=== PATIENT | male | born 1965 | race Caucasian/White ===

== ENCOUNTER 2016-12-12 13:20 | Emergency (ER) | payer BC ==
[~2016-12-12] VITALS: Ht 180.3 cm; Wt 90.7 kg
[~2016-12-12 13:20] MED LIST: ACET-789 PO; ACLI400A IH; ACLI400A2 IH; ADVAIR IH; ALBU17AE23 INH; ALPR1T PO; ALPR1TAB2 PO; ALPR1TAB7 PO; ALPR2TAB2 PO; AMIT10TA6 PO; BUDE10.2 IH; BUDE10.22 IH; CEPH500T PO; CYPR4TAB PO; DIVA125T2 PO; DIVA250T4 PO; DIVA500T7 PO; FLUT9.9S NS; HYDR1TAB8 OP; LITH300C PO; LORA10TA7 PO; MELA1TAB15 PO; METH500T PO; MONT10TA21 PO; MULT-35 PO; MULT-963 PO; NAPR500T3 PO; OLAN5TAB23 PO; PRD20T PO; QUET200T57 PO; QUET400T PO; RT-ALBUINH IH; SERT100T PO; SERT100T8 PO; SERT50TA PO; SLMFT1E INH; TRAZ150T42 PO; TRIA10.8 NS; ZOLP10TA5 PO; zoloft
--- NOTE | 2016-12-12 13:26 | ED Upper Extremity ---
General Chief Complaint: Upper Extremity Stated Complaint: L WRIST INJURY, FALL Source: patient Exam Limitations: no limitations History of Present Illness Time seen by provider: 13:25 Initial Comments To ER with left wrist injury after slipping and falling on the ice. No pain to the elbow or shoulder. No other injury. He attempted to catch himself on an outstretched arm. Onset: just prior to arrival Severity: moderate Pain/Injury Location: left wrist Method of Injury: fell Modifying Factors: Worse With Movement Allergies and Home Medications Allergies Coded Allergies: Sulfa (Sulfonamide Antibiotics) (Unverified Allergy, Unknown, 06/09/08) Home Medications Budesonide/Formoterol Fumarate 10.2 Gm Hfa.aer.ad 2 PUFF IH BID (Reported) Divalproex Sodium 500 Mg Tablet.dr 1,000 MG PO BID (Reported) Quetiapine Fumarate 50 Mg Tablet 50 MG PO HS (Reported) Sertraline HCl 100 Mg Tablet 100 MG PO DAILY (Reported) Varenicline Tartrate 1 Each Tab.ds.pk 1 EACH PO DAILY (Reported) Constitutional: see HPI EENTM: see HPI Respiratory: no symptoms reported Cardiovascular: no symptoms reported Genitourinary: no symptoms reported Musculoskeletal: see HPI Skin: no symptoms reported Psychiatric/Neurological: No Symptoms Reported Past Yrdtbvb-Daowze-Cainpw Hx Patient Social History Former Smoker/When Quit: Jun 30, 2014 Recent Foreign Travel: No Contact w/Someone Who Travel: No Immunizations Up To Date Tetanus Booster (TDap): More than 5yrs Date of Pneumonia Vaccine: Sep 22, 2014 Date of Influenza Vaccine: Sep 30, 2015 Seasonal Allergies Seasonal Allergies: Yes Surgeries HX Surgeries: Yes (TONSILLECTOMY, URETHRAL SURGERY , FINGER) Surgeries: Orthopedic, Tonsillectomy Respiratory Hx Respiratory Disorders: Yes Respiratory Disorders: Asthma, COPD, Emphysema Cardiovascular Hx Cardiac Disorders: Yes (EPISODES OF BRADYCARDIA) Neurological Hx Neurological Disorders: No Reproductive System Hx Reproductive Disorders: No HIV/AIDS: No Genitourinary Hx Genitourinary Disorders: Yes (URETHRA DILATATION) Gastrointestinal Hx Gastrointestinal Disorders: Yes (HEP C) Gastrointestinal Disorders: Hepatitis Musculoskeletal Hx Musculoskeletal Disorders: Yes (BROKE BACK 2013) Endocrine Hx Endocrine Disorders: No HEENT HX ENT Disorders: No Loss of Vision: Denies Hearing Impairment: Denies Cancer Hx Cancer: No Psychosocial Hx Psychiatric Problems: Yes (insomnia) Behavioral Health Disorders: Anxiety, Bipolar Integumentary HX Skin/Integumentary Disorder: No Blood Transfusions Hx Blood Disorders: No Adverse Reaction to a Blood Tr: No Family Medical History Family Medial History: Diabetes mellitus 19 MOTHER FH: COPD (chronic obstructive pulmonary disease) 19 MOTHER FH: emphysema 19 FATHER FH: lung cancer 19 FATHER Physical Exam Vital Signs Vital Sign - Last 12Hours 12/12/16 13:20 Temp 98.7 Pulse 66 Resp 18 B/P 115/61 Pulse Ox 99 Capillary Refill : General Appearance: WD/WN no apparent distress HEENT: PERRL/EOMI normal ENT inspection Neck: non-tender full range of motion Respiratory: normal breath sounds no respiratory distress no accessory muscle use Shoulder: normal inspection non-tender no evidence of injury Elbow/Forearm: normal inspection, non-tender, Left Wrist: Yes limited ROM, Yes soft tissue tenderness, Yes swelling Hand: normal inspection, non-tender, no evidence of injury, Left Neurologic/Psychiatric: alert normal mood/affect oriented x 3 Skin: normal color warm/dry Progress/Results/Core Measures Results/Orders My Orders Orders-MARKO LINARES APRN Wrist, Left, 3 Views Or More (12/12/16 13:35) Vital Signs/I&O Vital Sign - Last 12Hours 12/12/16 13:20 Temp 98.7 Pulse 66 Resp 18 B/P 115/61 Pulse Ox 99 Departure Impression Impression: Primary Impression: Left wrist sprain Qualified Code: S63.502A - Unspecified sprain of left wrist, initial encounter Disposition: 01 HOME, SELF-CARE Condition: Stable Departure-Patient Inst. Decision time for Depature: 13:45 Referrals: MARIEL PATEL MD (PCP/Family) Primary Care Physician Patient Instructions: Wrist Sprain (DC) Add. Discharge Instructions: 1. Return to ER for any concerns 2. Follow up with your doctor next week for any persistent pain 3. Tylenol and Motrin for pain 4. Ice pack to the wrist for 30 minutes every 2-3 hours for the next 24 hours All discharge instructions reviewed with patient and/or family. Voiced understanding. MARKO LINARES APRN Dec 12, 2016 13:26 MARKO LINARES APRN Dec 12, 2016 13:26
[2016-12-12] MEDS ORDERED: SERT100T PO (13:36)
[2016-12-12] MEDS ORDERED: VARE1TAB21 PO (13:36)
[2016-12-12] MEDS ORDERED: QUET50TA PO (13:36)
--- NOTE | 2016-12-12 14:35 | Diagnostic Imaging Report ---
CLINICAL INDICATION: Patient fell on ice this morning. Left wrist swelling and continues to worsen as day progresses. EXAM: X-ray of the left wrist, three views. COMPARISON: X-ray of the right hand and third finger dated 05/04/2011. FINDINGS: There is no acute fracture or dislocation. There is mild to moderate degenerative disease of the first CMC joint which has slightly progressed. There is mild spurring of the first MTP joint. Scapholunate interval is within normal limits. There is a roughly 1-2 mm radiodense foreign object overlying the first MCP region, which may be outside of patient or represent a foreign body. This was not seen on the prior x-ray. IMPRESSION: 1: There is no evidence of acute fracture or dislocation. 2: There is degenerative disease of the first digit and first CMC region, which has progressed in the first CMC region. 3: Radiodense foreign object seen overlying the first MCP region which may represent a soft tissue foreign body versus outside of patient. Dictated by: Dictated on workstation # [id number]
[2016-12-12 14:49] VITALS: BP 115/61
== END 2016-12-12 14:49 | disposition home or self-care (01) ==
LOC: EDUNIT# 13:20 → ER 13:21
DX: S63.502A Unspecified sprain of left wrist, initial encounter (principal); J44.9 Chronic obstructive pulmonary disease, unspecified; M19.042 Primary osteoarthritis, left hand; W00.0XXA Fall on same level due to ice and snow, initial encounter; Y99.8 Other external cause status
CPT/HCPCS: 73110

== ENCOUNTER 2017-04-27 16:49 | Emergency (ER) | payer BC ==
[~2017-04-27] VITALS: Ht 180.3 cm; Wt 92.1 kg
[~2017-04-27 16:49] MED LIST changes: +QUET50TA PO; +VARE1TAB21 PO
[2017-04-27] MEDS ORDERED: TETANUS,DIPTH,PERTUSS P/F (BOOSTRIX) 0.5 ML VIAL IM ONE ×2 (19:15→20:32)
--- NOTE | 2017-04-27 19:17 | ED Upper Extremity ---
General Chief Complaint: Skin/Wound Problems Stated Complaint: LEFT HAND INJURY FROM SCREWDRIVER Nursing Triage Note: PT HERE WITH C/O L HAND PAIN FROM SLIPPING OFF OF A SCREW AND STABBED HIS HAND WITH A SCREWDRIVER. Nursing Sepsis Screen: No Definite Risk Source: patient History of Present Illness Time seen by provider: 19:03 Initial Comments PT STATES HE WAS TRYING TO FIX A PLUG, USING A SCREWDRIVER, AND IT SLIPPED, AND STABBED HIMSELF IN LEFT HAND OCCURRED AT HOME 2-3 HOURS AGO NO PARESTHESIAS OR MOTOR DEFICITS PT IS RIGHT HANDED NO PRIOR INJURY TO THIS HAND LAST TETANUS IS UNKNOWN Allergies and Home Medications Allergies Coded Allergies: Sulfa (Sulfonamide Antibiotics) (Unverified Allergy, Unknown, 06/09/08) Home Medications Budesonide/Formoterol Fumarate 10.2 Gm Hfa.aer.ad, 2 PUFF IH BID, (Reported) Clindamycin HCl 300 Mg Capsule, 300 MG PO QID, #40 Prescribed by: SANTIAGO MONGE on 04/27/172029 Divalproex Sodium 500 Mg Tablet.dr, 1,000 MG PO BID, (Reported) Mupirocin Calcium 15 Gm Cream..g., 15 GM TP BID, #22 Prescribed by: SANTIAGO MONGE on 04/27/172029 Quetiapine Fumarate 50 Mg Tablet, 50 MG PO HS, (Reported) Sertraline HCl 100 Mg Tablet, 100 MG PO DAILY, (Reported) Varenicline Tartrate 1 Each Tab.ds.pk, 1 EACH PO DAILY, (Reported) Constitutional: no symptoms reported Musculoskeletal: see HPI Skin: see HPI Psychiatric/Neurological: No Symptoms Reported Past Duaugaz-Qrhexy-Kuwaih Hx Patient Social History Alcohol Use: Occasionally Uses (VERY HEAVY AT TIMES) Recreational Drug Use: Yes (THC, + IV METH) Smoking Status: Current Everyday Smoker (1 PPD) Recent Foreign Travel: No Contact w/Someone Who Travel: No Recent Infectious Disease Expo: No Recent Hopitalizations: Yes Immunizations Up To Date Tetanus Booster (TDap): More than 5yrs Date of Pneumonia Vaccine: Sep 22, 2014 Date of Influenza Vaccine: Sep 30, 2015 Seasonal Allergies Seasonal Allergies: Yes Surgeries HX Surgeries: Yes (TONSILLECTOMY, URETHRAL SURGERY , FINGER) Surgeries: Orthopedic, Tonsillectomy Respiratory Hx Respiratory Disorders: Yes Respiratory Disorders: Asthma, COPD, Emphysema Cardiovascular Hx Cardiac Disorders: Yes (EPISODES OF BRADYCARDIA) Neurological Hx Neurological Disorders: No Reproductive System Hx Reproductive Disorders: No HIV/AIDS: No Genitourinary Hx Genitourinary Disorders: Yes (URETHRA DILATATION) Gastrointestinal Hx Gastrointestinal Disorders: Yes (HEP C) Gastrointestinal Disorders: Hepatitis Musculoskeletal Hx Musculoskeletal Disorders: Yes (BROKE BACK 2013--BURST FRACTURE L 1 VERTEBRA ) Endocrine Hx Endocrine Disorders: No HEENT HX ENT Disorders: No Loss of Vision: Denies Hearing Impairment: Denies Cancer Hx Cancer: No Psychosocial Hx Psychiatric Problems: Yes (insomnia) Behavioral Health Disorders: Anxiety, Bipolar Integumentary HX Skin/Integumentary Disorder: No Blood Transfusions Hx Blood Disorders: No Adverse Reaction to a Blood Tr: No Family Medical History Family Medial History: Diabetes mellitus 19 MOTHER FH: COPD (chronic obstructive pulmonary disease) 19 MOTHER FH: emphysema 19 FATHER FH: lung cancer 19 FATHER Physical Exam Vital Signs Vital Sign - Last 12Hours 04/27/17 17:55 Temp 98.1 Pulse 78 Resp 18 B/P (MAP) 121/86 Pulse Ox 89 O2 Delivery Room Air Capillary Refill : Less Than 3 Seconds General Appearance: WD/WN, no apparent distress, other (CONSTANT MOVEMENTS OF ENTIRE BODY AND MOUTH) HEENT: other (VERY POOR DENTITION) Hand: Left (LEFT PALM AT BASE OF THUMB/THENAR AREA WITH 1 CM LACERATION / PUNCTURE. NO ACTIVE BLEEDING AT THIS TIME. MODERATE SWELLING TO AREA. MOTOR/ SENSORY/VASCULAR INTACT. 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 II-XII nml as tested, no motor/sensory deficits, alert Skin: normal color, warm/dry, other (FRESH TRACK ACUNA/BRUISING TO AC SPACES, WITH ONE IN RIGHT AC APPEARING TO BE MOST RECENT) Progress/Results/Core Measures Results/Orders My Orders Orders - SANTIAGO MONGE DO Hand, Left, 3 Views (04/27/17 19:09) Dipht,Pertuss(Acell),Tet Adult (Boostrix (04/27/17 19:15) Mupirocin Ointment (Bactroban Ointment (04/27/17 21:00) Rx-Clindamycin Capsule (Rx-Cleocin Capsu (04/28/17 00:00) Rx-Clindamycin Capsule (Rx-Cleocin Capsu (04/27/17 20:32) Dipht,Pertuss(Acell),Tet Adult (Boostrix (04/27/17 20:32) Medications Given in ED Current Medications Medications Dose Ordered Sig/Hanane Route Start Time Stop Time Status Last Admin Dose Admin Clindamycin HCl 150 mg STK-MED ONCE PO 04/27/17 20:32 04/27/17 20:37 DC 04/27/17 20:42 150 MG Diphtheria/ Tetanus/Acell Pertussis 0.5 ml ONCE ONCE IM 04/27/17 19:15 04/27/17 20:51 DC 04/27/17 20:43 0.5 ML Vital Signs/I&O Vital Sign - Last 12Hours 04/27/17 04/27/17 17:55 20:49 Temp 98.1 Pulse 78 84 Resp 18 14 B/P (MAP) 121/86 Pulse Ox 89 98 O2 Delivery Room Air Blood Pressure Mean: 98 Progress Note : Progress Note NO CLOSURE DONE WOUND IS A PUNCTURE, AND HAS SMALL RETAINED FOREIGN BODY-- OBJECT IS TOO SMALL AND DEEP AND NEAR JOINT, TO ATTEMPT TO EXPLORE AND ATTEMPT TO REMOVE EXPLAINED TO PT THE RISKS OF INFECTION AND NEED FOR CLOSE FOLLOW UP, AND HE APPEARS TO UNDERSTAND Diagnostic Imaging Comments XRAYS LEFT HAND--METALLIC FOREIGN BODY NEAR MCP JOINT OF FIRST DIGIT, PER RADIOLOGIST REPORT Reviewed: Reviewed by Me Departure Impression Impression: Primary Impression: PUNCTURE WOUND LEFT HAND WITH RETAINED FOREIGN BODY Additional Impression: Rpskcqblxq-bpefnlorm-aazqdez (DPT) vaccination administered at current visit Disposition: 01 HOME, SELF-CARE Condition: Stable Departure-Patient Inst. Referrals: MARIEL PATEL MD (PCP/Family) Primary Care Physician Patient Instructions: Diphtheria and Tetanus Toxoids, and Acellular Pertussis Vaccine, Wound Care (DC) Add. Discharge Instructions: ICE TO AREA AT 20 MINUTE INTERVALS ELEVATE HAND MUCH POSSIBLE SOAK WOUND IN WARM SOAPY WATER 2-3 TIMES A DAY, AND APPLY ANTIBIOTIC OINTMENT AND FRESH DRESSING AFTER EACH TYLENOL AND MOTRIN NEEDED FOR PAIN FOLLOW UP WITH DR. PATEL IN 2 DAYS FOR RECHECK All discharge instructions reviewed with patient and/or family. Voiced understanding. Scripts Clindamycin HCl (Clindamycin HCl) 300 Mg Capsule 300 MG PO QID for FOR INFECTION, #40 CAP Prov: SANTIAGO MONGE DO 5/29/17 Mupirocin Calcium (Bactroban) 15 Gm Cream..g. 15 GM TP BID, #22 TUBE Prov: SANTIAGO MONGE DO 04/27/17 SANTIAGO MONGE DO April 27, 2017 19:17
--- NOTE | 2017-04-27 19:33 | Diagnostic Imaging Report ---
Indication: Stabbed the palm of his hand with a screwdriver at the first metacarpophalangeal joint. Comparison study: Left wrist from December 12. Findings: Three views of the left hand demonstrate a small metallic foreign body on the inside aspect of the first metacarpophalangeal joint. No fracture is present. IMPRESSION: There is a small metallic foreign body near the first metacarpophalangeal joint. Dictated by: Dictated on workstation # [id number]
[2017-04-27] MEDS ORDERED: MUPI15CR TP (20:30)
[2017-04-27] MEDS ORDERED: CLIN300C11 PO (20:30)
[2017-04-27] MEDS ORDERED: RX-CLINDAMYCIN 150 MG (CLEOCIN) CAP PPK#4 PO ONE (20:32)
[2017-04-27 20:49] VITALS: BP 135/109
[2017-04-27] MEDS ORDERED: MUPIROCIN 2% OINT 22 GM (BACTROBAN) TUBE TOP SCH (21:00)
[2017-04-28] MEDS ORDERED: RX-CLINDAMYCIN 150 MG (CLEOCIN) CAP PPK#4 PO SCH
== END 2017-04-27 20:50 | disposition home or self-care (01) ==
LOC: EDUNIT# 16:49 → ER 16:51
DX: S61.442A Puncture wound with foreign body of left hand, initial encounter (principal); Z23 Encounter for immunization; J44.9 Chronic obstructive pulmonary disease, unspecified; F17.210 Nicotine dependence, cigarettes, uncomplicated; W27.0XXA Contact with workbench tool, initial encounter; Y99.8 Other external cause status
CPT/HCPCS: 73130; 90715; 99283

== ENCOUNTER → 2018-01-14 | Outpatient (CLI) | payer BC ==
[~2018-01-14] MED LIST changes: +CEFU250T80 PO; +CLIN300C11 PO; +MUPI15CR TP; -NAPR500T3 PO; +NAPR500T4 PO; +SERT20OR PO
--- NOTE | 2018-01-14 11:20 | Diagnostic Imaging Report ---
PROCEDURE: US abdomen complete. TECHNIQUE: Multiple real-time grayscale images were obtained over the abdomen in various projections. INDICATION: Right abdominal pain and hepatitis C. The liver is at the upper limits of normal in size at 17.7 cm. Liver contour is slightly nodular but no discrete liver mass is identified. The gallbladder is without stones or sludge. No wall thickening is identified. No intrahepatic biliary duct dilatation is seen. Extrahepatic bile duct and the pancreas are obscured by bowel gas. Spleen is upper limits of normal in size at 13.9 cm. The aorta is obscured. IVC is unremarkable. Both right and left kidneys are unremarkable. No calculi or hydronephrosis is seen. There is no ascites. IMPRESSION: 1. Mild nodular contour to the liver but no discrete liver mass is identified. The liver and spleen are upper limits of normal in size. The remainder of the study is unremarkable. Dictated by: Dictated on workstation # [id number]
== END ==
LOC: RAD 10:41
PROVIDERS: ATTEND Nurse Practitioner Family
DX: B19.20 Unspecified viral hepatitis C without hepatic coma (principal)
CPT/HCPCS: 76700

== ENCOUNTER 2018-01-15 14:28 | Emergency (ER) | payer BC ==
[~2018-01-15] VITALS: Ht 177.8 cm; Wt 95.3 kg
[~2018-01-15 14:28] MED LIST changes: -CEFU250T80 PO
--- NOTE | 2018-01-15 15:10 | ED Abdominal Pain ---
General Chief Complaint: Abdominal/GI Problems Stated Complaint: RT SIDE PAIN Nursing Triage Note: c/o right sided abd pain. Onset Thursday. Seen at [facility] on Thu followed by a ray SANZ on . Hx of Hep C. Sepsis Screen: No Definite Risk Source of Information: Patient Exam Limitations: No Limitations History of Present Illness Date Seen by Provider: Jan 15, 2018 Time Seen by Provider: 15:09 Initial Comments To ER with reports of right-sided abdominal pain. This began 01/11. Denies any known cause. No nausea or vomiting. He's not had a bowel movement in 2 days. No fevers or chills. No dysuria. History of hepatitis C. Timing/Duration: 1-2 Days Severity/Quality: Moderate Location: RUQ, RLQ Radiation: No Radiation Activities at Onset: None Allergies and Home Medications Allergies Coded Allergies: Sulfa (Sulfonamide Antibiotics) (Unverified Allergy, Unknown, 06/09/08) Home Medications Budesonide/Formoterol Fumarate 10.2 Gm Hfa.aer.ad, 2 PUFF IH BID, (Reported) Clindamycin HCl 300 Mg Capsule, 300 MG PO QID, #40 Prescribed by: SANTIAGO MONGE on 04/27/172029 Divalproex Sodium 500 Mg Tablet.dr, 1,000 MG PO BID, (Reported) Mupirocin Calcium 15 Gm Cream..g., 15 GM TP BID, #22 Prescribed by: SANTIAGO MONGE on 04/27/172029 Quetiapine Fumarate 50 Mg Tablet, 50 MG PO HS, (Reported) Sertraline HCl 100 Mg Tablet, 100 MG PO DAILY, (Reported) Varenicline Tartrate 1 Each Tab.ds.pk, 1 EACH PO DAILY, (Reported) Review of Systems Constitutional: see HPI EENTM: No Symptoms Reported Respiratory: No Symptoms Reported Cardiovascular: No Symptoms Reported Gastrointestinal: See HPI, Abdominal Pain, Constipated, Denies Nausea Genitourinary: No Symptoms Reported Skin: no symptoms reported Psychiatric/Neurological: No Symptoms Reported Endocrine: No Symptoms Reported Past Omqykjj-Pbvnyz-Ohaald Hx Patient Social History Alcohol Beverage of Choice: Beer Recent Foreign Travel: No Contact w/Someone Who Travel: No Recent Infectious Disease Expo: No Recent Hopitalizations: Yes Immunizations Up To Date Tetanus Booster (TDap): More than 5yrs Date of Pneumonia Vaccine: Sep 22, 2014 Date of Influenza Vaccine: Sep 30, 2015 Seasonal Allergies Seasonal Allergies: Yes Surgeries History of Surgeries: Yes (TONSILLECTOMY, URETHRAL SURGERY , FINGER) Surgeries: Orthopedic, Tonsillectomy Respiratory History of Respiratory Disorde: Yes Respiratory Disorders: Asthma, COPD, Emphysema Currently Using CPAP: No Currently Using BIPAP: No Cardiovascular History of Cardiac Disorders: Yes (EPISODES OF BRADYCARDIA) Neurological History of Neurological Disord: No Reproductive System Hx Reproductive Disorders: No HIV/AIDS: No Gastrointestinal History of Gastrointestinal Di: Yes (HEP C) Gastrointestinal Disorders: Hepatitis Musculoskeletal History of Musculoskeletal Dis: Yes (BROKE BACK 2013) Endocrine History of Endocrine Disorders: No HEENT Loss of Vision: Denies Hearing Impairment: Denies Cancer History of Cancer: No Psychosocial History of Psychiatric Problem: Yes (insomnia) Behavioral Health Disorders: Anxiety, Bipolar Integumentary History of Skin or Integumenta: No Blood Transfusions History of Blood Disorders: No Adverse Reaction to a Blood Tr: No Family Medical History Family Medial History: Diabetes mellitus 19 MOTHER FH: COPD (chronic obstructive pulmonary disease) 19 MOTHER FH: emphysema 19 FATHER FH: lung cancer 19 FATHER Physical Exam Vital Signs VS - Last 72 Hours, by Label 01/15/18 01/15/18 14:54 15:42 Temp 97.5 97.5 Pulse 84 Resp 20 B/P (MAP) 109/85 (93) O2 Delivery Room Air Capillary Refill : Less Than 3 Seconds General Appearance: WD/WN, no apparent distress HEENT: PERRL/EOMI, normal ENT inspection Neck: non-tender, full range of motion Respiratory: normal breath sounds, no respiratory distress, no accessory muscle use Cardiovascular: regular rate, rhythm, no murmur Gastrointestinal: normal bowel sounds, soft, tenderness Extremities: normal range of motion, non-tender Neurologic/Psychiatric: alert, normal mood/affect, oriented x 3 Skin: normal color, warm/dry Progress/Results/Core Measures Results/Orders Lab Results Laboratory Tests Test 01/15/18 15:30 01/15/18 15:35 Range/Units Urine Color YELLOW Urine Clarity CLEAR Urine pH 5 5-9 Urine Specific [place] 1.020 1.016-1.022 Urine Protein 1+ H NEGATIVE Urine Glucose (UA) NEGATIVE NEGATIVE Urine Ketones 1+ H NEGATIVE Urine Nitrite NEGATIVE NEGATIVE Urine Bilirubin NEGATIVE NEGATIVE Urine Urobilinogen 1 NORMAL MG/DL Urine Leukocyte Esterase 2+ H NEGATIVE Urine RBC (Auto) 2+ H NEGATIVE Urine RBC RARE /HPF Urine WBC 10-25 H /HPF Urine Squamous Epithelial Cells 5-10 /HPF Urine Crystals NONE /LPF Urine Bacteria TRACE /HPF Urine Casts NONE /LPF Urine Mucus SMALL H /LPF Urine Culture Indicated YES White Blood Count 5.3 4.3-11.0 10^3/uL Red Blood Count 4.77 4.35-5.85 10^6/uL Hemoglobin 14.9 13.3-17.7 G/DL Hematocrit 43 40-54 % Mean Corpuscular Volume 89 80-99 FL Mean Corpuscular Hemoglobin 31 25-34 PG Mean Corpuscular Hemoglobin Concent 35 32-36 G/DL Red Cell Distribution Width 13.2 10.0-14.5 % Platelet Count 109 L 130-400 10^3/uL Mean Platelet Volume 10.5 H 7.4-10.4 FL Neutrophils (%) (Auto) 37 L 42-75 % Lymphocytes (%) (Auto) 48 H 12-44 % Monocytes (%) (Auto) 11 0-12 % Eosinophils (%) (Auto) 3 0-10 % Basophils (%) (Auto) 1 0-10 % Neutrophils # (Auto) 2.0 1.8-7.8 X 10^3 Lymphocytes # (Auto) 2.6 1.0-4.0 X 10^3 Monocytes # (Auto) 0.6 0.0-1.0 X 10^3 Eosinophils # (Auto) 0.2 0.0-0.3 10^3/uL Basophils # (Auto) 0.0 0.0-0.1 10^3/uL Sodium Level 141 135-145 MMOL/L Potassium Level 4.5 3.6-5.0 MMOL/L Chloride Level 106 98-107 MMOL/L Carbon Dioxide Level 23 21-32 MMOL/L Anion Gap 12 5-14 MMOL/L Blood Urea Nitrogen 15 7-18 MG/DL Creatinine 0.83 0.60-1.30 MG/DL Estimat Glomerular Filtration Rate > 60 BUN/Creatinine Ratio 18 Glucose Level 101 70-105 MG/DL Calcium Level 8.6 8.5-10.1 MG/DL Total Bilirubin 0.4 0.1-1.0 MG/DL Aspartate Amino Transf (AST/SGOT) 68 H 5-34 U/L Alanine Aminotransferase (ALT/SGPT) 80 H 0-55 U/L Alkaline Phosphatase 55 40-136 U/L Total Protein 7.0 6.4-8.2 GM/DL Albumin 3.6 3.2-4.5 GM/DL Lipase 52 8-78 U/L My Orders Orders - MARKO LINARES PUBLIC WORKS DIRECTOR Cbc With Automated Diff (01/15/18 15:07) Comprehensive Metabolic Panel (01/15/18 15:07) Ua Culture If Indicated (01/15/18 15:07) Lipase (01/15/18 15:07) Saline Lock/Iv-Start (01/15/18 15:07) Ct Abd/Pelv W (Appendicitis) (01/15/18 15:07) Ns Iv 1000 Ml (Sodium Chloride 0.9%) (01/15/18 15:15) Fentanyl Injection (Sublimaze Injection (01/15/18 15:15) Urine Culture (01/15/18 15:30) Iohexol Injection (Omnipaque 350 Mg/Ml 1 (01/15/18 16:15) Sodium Chloride Flush (Catheter Flush Sy (01/15/18 16:15) Ns (Ivpb) (Sodium Chloride 0.9%) (01/15/18 16:15) Pharmacy Communication (Pharmacy Communi (01/15/18 16:03) Ceftriaxone Injection (Rocephin Injectio (01/15/18 16:15) Ketorolac Injection (Toradol Injection) (01/15/18 16:45) Medications Given in ED Current Medications Medications Dose Ordered Sig/Hanane Route Start Time Stop Time Status Last Admin Dose Admin Fentanyl Citrate 50 mcg ONCE ONCE IVP 01/15/18 15:15 01/15/18 15:16 DC 01/15/18 15:42 50 MCG Iohexol 100 ml ONCE ONCE IV 01/15/18 16:15 01/15/18 16:16 DC 01/15/18 16:24 100 ML Sodium Chloride 10 ml NEEDED PRN IV 01/15/18 16:15 01/15/18 16:24 10 ML Sodium Chloride 250 ml ONCE ONCE IV 01/15/18 16:15 01/15/18 16:16 DC 01/15/18 16:24 80 ML Vital Signs/I&O Vital Sign - Last 12Hours 01/15/18 01/15/18 14:54 15:42 Temp 97.5 97.5 Pulse 84 Resp 20 B/P (MAP) 109/85 (93) O2 Delivery Room Air Blood Pressure Mean: 93 Diagnostic Imaging Diagonstic Imaging: CT Comments NAME: NANI PERALTA [facility] REC#: [id number] PT STATUS: REG ER : 1965 PHYSICIAN: MARKO LINARES PUBLIC WORKS DIRECTOR ADMIT DATE: 01/15/18/ER Draft Date of Exam:01/15/18 CT ABD/PELV W (APPENDICITIS) PROCEDURE: CT abdomen and pelvis with contrast, rule out appendicitis. TECHNIQUE: Multiple contiguous axial images were obtained through the abdomen and pelvis after the administration of intravenous contrast. INDICATION: Right lower quadrant pain. FINDINGS: There are no opaque kidney stones. There is no hydronephrosis. No perinephric or periureteric edema. Liver, gallbladder, bile ducts, spleen, adrenals and pancreas were unremarkable. The cecum is oriented transversely, there is no evidence for appendicitis or diverticulitis. There is no bowel, biliary or urinary tract obstruction. No abdominal wall defect, hernia or fluid collection aside from midline fatty umbilical hernia showing no acute feature. No rectus sheath collection. The osseous structures nonacute. No mesenteric or retroperitoneal lymphadenopathy. The lung bases nonacute. At L1 fracture with mild retropulsion of its posterior cortex shows severe stature loss at its middle third but appears sclerotic, old and healed. IMPRESSION: Unobstructed urinary tracts. No inflammatory process. Old retropulsed burst fracture of L1 with no acute osseous abnormality. Fatty umbilical hernia, nonacute. No acute-appearing abdominopelvic abnormalities. Dictated on workstation # [id number] Dict: 01/15/18 1627 Trans: 01/15/18 1633 ADALID [id number] Interpreted by: ZAN VOGT Electronically signed by: Departure Impression Impression: Primary Impression: Urinary tract infection Disposition: 01 HOME, SELF-CARE Condition: Stable Departure-Patient Inst. Decision time for Depature: 16:40 Referrals: MARIEL PATEL MD (PCP/Family) Primary Care Physician Patient Instructions: Urinary Tract Infection, Adult (DC) Add. Discharge Instructions: 1. Antibiotics as directed 2. Follow-up with your doctor this week or next week for recheck 3. Return to ER for any worsening. All discharge instructions reviewed with patient and/or family. Voiced understanding. Scripts Cefuroxime Axetil (Cefuroxime) 250 Mg Tablet 250 MG PO BID, #14 TAB Prov: MARKO LINARES APRN 01/15/18 MARKO LINARES APRN Jan 15, 2018 15:10
[2018-01-15] MEDS ORDERED: NS IV 1000 ML 1,000 ML IV SCH (15:15)
[2018-01-15] MEDS ORDERED: fentaNYL INJECTION 100 MCG/2 ML AMP IVP ONE (15:15)
[2018-01-15 15:43] LABS: BILIRUBIN,URINE NEGATIVE (NEGATIVE); CLARITY,URINE CLEAR; COLOR,URINE YELLOW; GLUCOSE, URINE (UA) NEGATIVE (NEGATIVE); KETONES,URINE 1+ (NEGATIVE); LEUKOCYTE ESTERASE ,URINE 2+ (NEGATIVE); NITRITE,URINE NEGATIVE (NEGATIVE); PH,URINE 5 (5-9); PROTEIN,URINE 1+ (NEGATIVE); UROBILINOGEN,URINE 1 MG/DL (NORMAL)
[2018-01-15 15:44] LABS: BASOPHILS % (AUTO) 1 % (0-10); EOSINOPHILS # (AUTO) 0.2 10^3/uL (0.0-0.3); EOSINOPHILS % (AUTO) 3 % (0-10); HEMATOCRIT 43 % (40-54); HEMOGLOBIN 14.9 G/DL (13.3-17.7); LYMPHOCYTES # (AUTO) 2.6 X 10^3 (1.0-4.0); LYMPHOCYTES % (AUTO) 48 % (12-44); MEAN CORPUSCULAR HEMOGLOBIN 31 PG (25-34); MEAN CORPUSCULAR HGB CONC 35 G/DL (32-36); MEAN CORPUSCULAR VOLUME 89 FL (80-99); MEAN PLATELET VOLUME 10.5 FL (7.4-10.4); MONOCYTES # (AUTO) 0.6 X 10^3 (0.0-1.0); MONOCYTES % (AUTO) 11 % (0-12); NEUTROPHILS % (AUTO) 37 % (42-75); PLATELET COUNT 109 10^3/uL (130-400); RED BLOOD COUNT 4.77 10^6/uL (4.35-5.85); RED CELL DISTRIBUTION WIDTH 13.2 % (10.0-14.5); WHITE BLOOD COUNT 5.3 10^3/uL (4.3-11.0)
[2018-01-15 15:52] LABS: BACTERIA,URINE TRACE /HPF; RBC,URINE RARE /HPF
[2018-01-15 16:08] LABS: ALANINE AMINOTRANSFERASE 80 U/L (0-55); ALBUMIN 3.6 GM/DL (3.2-4.5); ALKALINE PHOSPHATASE 55 U/L (40-136); BILIRUBIN,TOTAL 0.4 MG/DL (0.1-1.0); BUN/CREATININE RATIO 18; CALCIUM 8.6 MG/DL (8.5-10.1); CARBON DIOXIDE 23 MMOL/L (21-32); CHLORIDE 106 MMOL/L (98-107); CREATININE SERUM 0.83 MG/DL (0.60-1.30); GFR ESTIMATED > 60; GLUCOSE 101 MG/DL (70-105); LIPASE 52 U/L (8-78); POTASSIUM 4.5 MMOL/L (3.6-5.0); SODIUM 141 MMOL/L (135-145)
[2018-01-15] MEDS ORDERED: IOHEXOL 350 MG/ML 100 ML (OMNIPAQUE 350) VIAL IV ONE (16:15)
[2018-01-15] MEDS ORDERED: CATHETER FLUSH 10 ML SYR IV PRN (16:15)
[2018-01-15] MEDS ORDERED: NS 250 ML (IVPB) BAG IV ONE (16:15)
[2018-01-15] MEDS ORDERED: cefTRIAXone INJECTION 1,000 MG in NS (IVPB) 50 ML IV ONE (16:15)
--- NOTE | 2018-01-15 16:34 | Diagnostic Imaging Report ---
PROCEDURE: CT abdomen and pelvis with contrast, rule out appendicitis. TECHNIQUE: Multiple contiguous axial images were obtained through the abdomen and pelvis after the administration of intravenous contrast. INDICATION: Right lower quadrant pain. FINDINGS: There are no opaque kidney stones. There is no hydronephrosis. No perinephric or periureteric edema. Liver, gallbladder, bile ducts, spleen, adrenals and pancreas were unremarkable. The cecum is oriented transversely, there is no evidence for appendicitis or diverticulitis. There is no bowel, biliary or urinary tract obstruction. No abdominal wall defect, hernia or fluid collection aside from midline fatty umbilical hernia showing no acute feature. No rectus sheath collection. The osseous structures nonacute. No mesenteric or retroperitoneal lymphadenopathy. The lung bases nonacute. At L1 fracture with mild retropulsion of its posterior cortex shows severe stature loss at its middle third but appears sclerotic, old and healed. IMPRESSION: Unobstructed urinary tracts. No inflammatory process. Old retropulsed burst fracture of L1 with no acute osseous abnormality. Fatty umbilical hernia, nonacute. No acute-appearing abdominopelvic abnormalities. Dictated by: Dictated on workstation # [id number]
[2018-01-15] MEDS ORDERED: CEFU250T80 PO (16:43)
[2018-01-15] MEDS ORDERED: KETOROLAC 30 MG/ML VIAL IVP ONE (16:45)
--- OUTSIDE RECORDS SUMMARY | 2018-01-15 17:12 | XMS REPORT ---
Author Author JUAN CARLOS MULLIGAN Organization [facility] Address [address] [place] [address] Care Team Providers Care [employer] Name Role Phone ESE JUAN CARLOS Unavailable PROBLEMS Type Condition ICD9-CM Code [id number] Code Onset Dates Condition Status SNOMED Code Problem Social phobia, generalized F40.11 Active 11454493 Problem Alcohol abuse F10.10 Active 20715660 Problem Alcohol use disorder, moderate, dependence F10.20 Active 395889059 Problem PTSD (post-traumatic stress disorder) F43.10 Active 50182589 Problem Bipolar disorder F31.9 Active 67446374 Problem Cannabis dependence with or without physiological dependence F12.20 Active 20688860 Problem Chronic hepatitis C without hepatic coma B18.2 Active 298887871 Problem Chronic obstructive pulmonary disease, unspecified COPD type J44.9 Active 02434252 Problem Cigarette nicotine dependence without complication F17.210 Active 90132919 Problem Alcohol use disorder, severe, 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 Active 18856984 Problem Gastroesophageal reflux disease, esophagitis presence not specified K21.9 Active 666499516 ALLERGIES Unknown Allergies SOCIAL HISTORY No smoking Hx information available PLAN OF CARE Activity Details Follow Up 4 Months Reason: VITAL SIGNS Height 71 in 2016-11-11 Weight 200.1 lbs 2016-11-11 Heart Rate 78 bpm 2016-11-11 Respiratory Rate 20 2016-11-11 BMI 27.91 kg/m2 2016-11-11 Blood pressure systolic 138 mmHg 2016-11-11 Blood pressure diastolic 74 mmHg 2016-11-11 MEDICATIONS Medication Instructions Dosage Frequency Start Date End Date Duration Status Seroquel 300 MG Orally at bedtime 1 tablet Active Depakote 500 MG Orally 2 times a day 2 tablet 12h 13 Jun, 2015 Active Zoloft 100 MG Orally Take 1/2 tablet for one week then increase to 1 whole tablet 1 tablet Active Seroquel 100 MG Orally Once a day at 4pm 1 tablet Oct, Active RESULTS No Results PROCEDURES Procedure Date Ordered Related Diagnosis Body Site MH Office Visit, Est Pt., Level 4 Nov 11, 2016 IMMUNIZATIONS No Known Immunizations
--- OUTSIDE RECORDS SUMMARY | 2018-01-15 17:13 | XMS REPORT ---
Author Author MARIEL PATEL [facility] Address [address] [place] [address] Care Team Providers Care Generation Manager Name Role Phone MARIEL PATEL Unavailable PROBLEMS Type Condition ICD9-CM Code [id number] Code Onset Dates Condition Status SNOMED Code Problem Social phobia, generalized F40.11 Active 56148817 Problem Alcohol use disorder, moderate, dependence F10.20 Active 978507972 Problem Alcohol abuse F10.10 Active 80867242 Problem Bipolar disorder F31.9 Active 34378792 Problem PTSD (post-traumatic stress disorder) F43.10 Active 10578900 Problem Cannabis dependence with or without physiological dependence F12.20 Active 52340512 Problem Chronic hepatitis C without hepatic coma B18.2 Active 725543401 Problem Cigarette nicotine dependence without complication F17.210 Active 55679163 Problem Chronic obstructive pulmonary disease, unspecified COPD type J44.9 Active 86391842 Problem Alcohol use disorder, severe, 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 Active 97260433 Problem Gastroesophageal reflux disease, esophagitis presence not specified K21.9 Active 570567217 ALLERGIES Substance Reaction Event Type Date Status Sulfamethoxazole-Trimethoprim Unknown Drug Allergy March, Active Latex rash Non Drug Allergy March, Active SOCIAL HISTORY Never Assessed PLAN OF CARE Activity Details Follow Up 1 Year Reason: VITAL SIGNS Height 71 in 2017-04-10 Weight 203.1 lbs 2017-04-10 Temperature 98.3 degrees Fahrenheit 2017-04-10 Heart Rate 78 bpm 2017-04-10 Respiratory Rate 18 2017-04-10 Oximetry at rest:96 % 2017-04-10 BMI 28.32 kg/m2 2017-04-10 Blood pressure systolic 104 mmHg 2017-04-10 Blood pressure diastolic 70 mmHg 2017-04-10 MEDICATIONS Medication Instructions Dosage Frequency Start Date End Date Duration Status Depakote 500 mg Orally 2 times a day 2 tablet 12h 13 Jun, 2015 Active ProAir HFA 108 (90 Base) MCG/ACT Inhalation every 4 hrs 2 puffs as needed 4h March, 30 days Active Zoloft 100 mg Orally Once a day 1 tablet 24h Active Chantix Starting Month Randy 0.5 MG X 11 & 1 MG X 42 Orally 2 times a day as directed 12h March, May, 30 days Active Seroquel 300 MG Orally at bedtime 1 tablet Active RESULTS No Results PROCEDURES Procedure Date Ordered Result Body Site MEASURE BLOOD OXYGEN LEVEL April 10, 2017 IMMUNIZATIONS No Known Immunizations MEDICAL (GENERAL) HISTORY Type Description Date Medical History bipolar Medical History Social anxiety disorder Medical History Hepatitis C - diagnosed in 2005 Surgical History Meatotomy 2007 Hospitalization History Via [facility] for slow heart rate 08/2015 Hospitalization History via [facility] for [facility] and [facility] 12/2015
--- OUTSIDE RECORDS SUMMARY | 2018-01-15 17:15 | XMS REPORT | Continuity of Care Document ---
Author Author [facility] Address Unknown Phone Unavailable Allergies Active Description Code Type Severity Reaction Onset Reported/Identified Relationship to Patient Clinical Status Yes No Known Drug Allergies [id number] Drug Allergy Unknown N/A 06/09/2008 Yes Sulfa (Sulfonamide Antibiotics) [id number] Drug Allergy Unknown N/A 2007 Yes sulfa drug Drug Allergy 11/04/2010 Medications There is no data. Problems Date Dx Coded Attending Type Code Diagnosis Diagnosed By 11/04/2010 MARIEL PATEL MD6.9 UNSPECIFIED LOCAL INFECTION OF SKIN AND SUBCUTANEOUS TISSUE 11/04/2010 686.9 UNSPECIFIED LOCAL INFECTION OF SKIN AND SUBCUTANEOUS TISSUE 11/04/2010 MARIEL PATEL MD 686.9 UNSPECIFIED LOCAL INFECTION OF SKIN AND SUBCUTANEOUS TISSUE 11/04/2010 686.9 UNSPECIFIED LOCAL INFECTION OF SKIN AND SUBCUTANEOUS TISSUE 11/04/2010 CASEY BLANDON MD 686.9 UNSPECIFIED LOCAL INFECTION OF SKIN AND SUBCUTANEOUS TISSUE 11/04/2010 686.9 UNSPECIFIED LOCAL INFECTION OF SKIN AND SUBCUTANEOUS TISSUE 11/04/2010 JUANITO BLANDON APRN 686.9 UNSPECIFIED LOCAL INFECTION OF SKIN AND SUBCUTANEOUS TISSUE 11/04/2010 686.9 UNSPECIFIED LOCAL INFECTION OF SKIN AND SUBCUTANEOUS TISSUE 11/04/2010 686.9 UNSPECIFIED LOCAL INFECTION OF SKIN AND SUBCUTANEOUS TISSUE 11/04/2010 MARIEL PATEL MD 686.9 UNSPECIFIED LOCAL INFECTION OF SKIN AND SUBCUTANEOUS TISSUE 11/04/2010 FROY FERRELL DO 686.9 UNSPECIFIED LOCAL INFECTION OF SKIN AND SUBCUTANEOUS TISSUE 11/04/2010 FERNANDO MELARA APRN 686.9 UNSPECIFIED LOCAL INFECTION OF SKIN AND SUBCUTANEOUS TISSUE 11/04/2010 MARIEL PATEL MD 686.9 UNSPECIFIED LOCAL INFECTION OF SKIN AND SUBCUTANEOUS TISSUE 11/04/2010 MARIEL PATEL MD 686.9 UNSPECIFIED LOCAL INFECTION OF SKIN AND SUBCUTANEOUS TISSUE 11/04/2010 FROY FERRELL DO 686.9 UNSPECIFIED LOCAL INFECTION OF SKIN AND SUBCUTANEOUS TISSUE 11/04/2010 WHITE DDS SEN Nolan 686.9 UNSPECIFIED LOCAL INFECTION OF SKIN AND SUBCUTANEOUS TISSUE 11/04/2010 FROY FERRELL DO 686.9 UNSPECIFIED LOCAL INFECTION OF SKIN AND SUBCUTANEOUS TISSUE 11/04/2010 MELARA MARK FERNANDO MANNIE 686.9 UNSPECIFIED LOCAL INFECTION OF SKIN AND SUBCUTANEOUS TISSUE 11/04/2010 MELARA BILLBOARD ERECTOR, FERNANDO MANNIE 686.9 UNSPECIFIED LOCAL INFECTION OF SKIN AND SUBCUTANEOUS TISSUE 11/04/2010 MARIEL PATEL MD 686.9 UNSPECIFIED LOCAL INFECTION OF SKIN AND SUBCUTANEOUS TISSUE 11/04/2010 MARIEL PATEL MD6.9 UNSPECIFIED LOCAL INFECTION OF SKIN AND SUBCUTANEOUS TISSUE 11/04/2010 MARIEL PATEL MD6.9 UNSPECIFIED LOCAL INFECTION OF SKIN AND SUBCUTANEOUS TISSUE 11/04/2010 LE RAMIREZ APRN 686.9 UNSPECIFIED LOCAL INFECTION OF SKIN AND SUBCUTANEOUS TISSUE 11/04/2010 MARIEL PATEL MD 686.9 UNSPECIFIED LOCAL INFECTION OF SKIN AND SUBCUTANEOUS TISSUE 11/04/2010 LE RAMIREZ APRN 686.9 UNSPECIFIED LOCAL INFECTION OF SKIN AND SUBCUTANEOUS TISSUE 11/04/2010 MARIEL PATEL MD6.9 UNSPECIFIED LOCAL INFECTION OF SKIN AND SUBCUTANEOUS TISSUE 11/04/2010 MARIEL PATEL MD6.9 UNSPECIFIED LOCAL INFECTION OF SKIN AND SUBCUTANEOUS TISSUE 11/04/2010 LE RAMIREZ APRN 686.9 UNSPECIFIED LOCAL INFECTION OF SKIN AND SUBCUTANEOUS TISSUE 12/30/2010 MARIEL PATEL MD 296.90 MO MOOD DIS NOS 12/30/2010 MARIEL PATEL MD 300.02 AN GEN ANXIETY 12/30/2010 296.90 MO MOOD DIS NOS 12/30/2010 300.02 AN GEN ANXIETY 12/30/2010 MARIEL PATEL MD 296.90 MO MOOD DIS NOS 12/30/2010 MARIEL PATEL MD 300.02 AN GEN ANXIETY 12/30/2010 296.90 MO MOOD DIS NOS 12/30/2010 300.02 AN GEN ANXIETY 12/30/2010 CASEY BLANDON MD 296.90 MO MOOD DIS NOS 12/30/2010 ACSEY BLANDON MD 300.02 AN GEN ANXIETY 12/30/2010 296.90 MO MOOD DIS NOS 12/30/2010 300.02 AN GEN ANXIETY 12/30/2010 JAMIA FLORESJUANITO M 296.90 MO MOOD DIS NOS 12/30/2010 BLANDON BILLBOARD ERECTORJUANITO M 300.02 AN GEN ANXIETY 12/30/2010 296.90 MO MOOD DIS NOS 12/30/2010 300.02 AN GEN ANXIETY 12/30/2010 296.90 MO MOOD DIS NOS 12/30/2010 300.02 AN GEN ANXIETY 12/30/2010 MARIEL PATEL MD 296.90 MO MOOD DIS NOS 12/30/2010 MARIEL PATEL MD 300.02 AN GEN ANXIETY 12/30/2010 FERRELL MÓNICA MEJIAA K 296.90 MO MOOD DIS NOS 12/30/2010 FERRELL DO FROY K 300.02 AN GEN ANXIETY 12/30/2010 MELARAFERNANDO DRAPER APRN 296.90 MO MOOD DIS NOS 12/30/2010 FERNANDO MELARA APRN 300.02 AN GEN ANXIETY 12/30/2010 MARIEL PATEL MD 296.90 MO MOOD DIS NOS 12/30/2010 MARIEL PATEL MD 300.02 AN GEN ANXIETY 12/30/2010 MARIEL PATEL MD 296.90 MO MOOD DIS NOS 12/30/2010 MARIEL PATEL MD 300.02 AN GEN ANXIETY 12/30/2010 FERRELL DO FROY K 296.90 MO MOOD DIS NOS 12/30/2010 FERRELL DO FROY K 300.02 AN GEN ANXIETY 12/30/2010 WHITE DDS, SEN D 296.90 MO MOOD DIS NOS 12/30/2010 WHITE DDS, SEN D 300.02 AN GEN ANXIETY 12/30/2010 FERRELL DO FROY K 296.90 MO MOOD DIS NOS 12/30/2010 FERRELL DO FROY K 300.02 AN GEN ANXIETY 12/30/2010 FERNANDO MELARA APRN 296.90 MO MOOD DIS NOS 12/30/2010 FERNANDO MELARA APRN 300.02 AN GEN ANXIETY 12/30/2010 FERNANDO MELARA APRN 296.90 MO MOOD DIS NOS 12/30/2010 FERNANDO MELARA APRN 300.02 AN GEN ANXIETY 12/30/2010 MARIEL PATEL MD 296.90 MO MOOD DIS NOS 12/30/2010 MARIEL PATEL MD 300.02 AN GEN ANXIETY 12/30/2010 MARIEL PATEL MD 296.90 MO MOOD DIS NOS 12/30/2010 MARIEL PATEL MD 300.02 AN GEN ANXIETY 12/30/2010 MARIEL PATEL MD 296.90 MO MOOD DIS NOS 12/30/2010 MARIEL PATEL MD 300.02 AN GEN ANXIETY 12/30/2010 JAMES BILLBOARD ERECTOR, LE 296.90 MO MOOD DIS NOS 12/30/2010 JAMES BILLBOARD ERECTOR, LE 300.02 AN GEN ANXIETY 12/30/2010 MARIEL PATEL MD 296.90 MO MOOD DIS NOS 12/30/2010 MARIEL PATEL MD 300.02 AN GEN ANXIETY 12/30/2010 JAMES BILLBOARD ERECTOR, LE 296.90 MO MOOD DIS NOS 12/30/2010 JAMES BILLBOARD ERECTOR, LE 300.02 AN GEN ANXIETY 12/30/2010 MARIEL PATEL MD 296.90 MO MOOD DIS NOS 12/30/2010 MARIEL PATEL MD 300.02 AN GEN ANXIETY 12/30/2010 MARIEL PATEL MD 296.90 MO MOOD DIS NOS 12/30/2010 MARIEL PATEL MD 300.02 AN GEN ANXIETY 12/30/2010 JAMES BILLBOARD ERECTOR, LE 296.90 MO MOOD DIS NOS 12/30/2010 JAMES BILLBOARD ERECTOR, LE 300.02 AN GEN ANXIETY 03/05/2011 MARIEL PATEL MD 300.00 AN ANXIETY UNSPEC 03/05/2011 300.00 AN ANXIETY UNSPEC 03/05/2011 MARIEL PATEL MD 300.00 AN ANXIETY UNSPEC 03/05/2011 300.00 AN ANXIETY UNSPEC 03/05/2011 CASEY BLANDON MD 300.00 AN ANXIETY UNSPEC 03/05/2011 300.00 AN ANXIETY UNSPEC 03/05/2011 JUANITO BLANDON APRN 300.00 AN ANXIETY UNSPEC 03/05/2011 300.00 AN ANXIETY UNSPEC 03/05/2011 300.00 AN ANXIETY UNSPEC 03/05/2011 MARIEL PATEL MD 300.00 AN ANXIETY UNSPEC 03/05/2011 FROY FERRELL DO 300.00 AN ANXIETY UNSPEC 03/05/2011 FERNANDO MELARA APRN 300.00 AN ANXIETY UNSPEC 03/05/2011 MARIEL PATEL MD 300.00 AN ANXIETY UNSPEC 03/05/2011 MARIEL PATEL MD 300.00 AN ANXIETY UNSPEC 03/05/2011 FROY FERRELL DO 300.00 AN ANXIETY UNSPEC 03/05/2011 BRENDON DDS, SEN Nolan 300.00 AN ANXIETY UNSPEC 03/05/2011 FROY FERRELL DO 300.00 AN ANXIETY UNSPEC 03/05/2011 FERNANDO MELARA APRN 300.00 AN ANXIETY UNSPEC 03/05/2011 FERNANDO MELARA APRN 300.00 AN ANXIETY UNSPEC 03/05/2011 MARIEL PATEL MD 300.00 AN ANXIETY UNSPEC 03/05/2011 MARIEL PATEL MD 300.00 AN ANXIETY UNSPEC 03/05/2011 MARIEL PATEL MD 300.00 AN ANXIETY UNSPEC 03/05/2011 LE RAMIREZ APRN 300.00 AN ANXIETY UNSPEC 03/05/2011 MARIEL PATEL MD 300.00 AN ANXIETY UNSPEC 03/05/2011 LE RAMIREZ APRN 300.00 AN ANXIETY UNSPEC 03/05/2011 MARIEL PATEL MD 300.00 AN ANXIETY UNSPEC 03/05/2011 MARIEL PATEL MD 300.00 AN ANXIETY UNSPEC 03/05/2011 LE RAMIREZ APRN 300.00 AN ANXIETY UNSPEC 05/09/2011 Ot 041.12 METHICILLIN RESISTANT STAPHYLOCOCCUS AUR 05/09/2011 Ot 296.80 BIPOLAR DISORDER, UNSPECIFIED 05/09/2011 Ot 305.1 TOBACCO USE DISORDER 05/09/2011 Ot 493.90 ASTHMA, UNSPECIFIED 05/09/2011 Ot 681.00 CELLULITIS, FINGER NOS 05/09/2011 Ot V12.09 PERSONAL HISTORY OTH SPEC INFECT ROLO 06/09/2011 MARIEL PATEL MD 493.90 ASTHMA UNSPECIFIED 06/09/2011 493.90 ASTHMA UNSPECIFIED 06/09/2011 MARIEL PATEL MD 493.90 ASTHMA UNSPECIFIED 06/09/2011 493.90 ASTHMA UNSPECIFIED 06/09/2011 CASEY BLANDON MD 493.90 ASTHMA UNSPECIFIED 06/09/2011 493.90 ASTHMA UNSPECIFIED 06/09/2011 JUANITO BLANDON APRN 493.90 ASTHMA UNSPECIFIED 06/09/2011 493.90 ASTHMA UNSPECIFIED 06/09/2011 493.90 ASTHMA UNSPECIFIED 06/09/2011 MARIEL PATEL MD 493.90 ASTHMA UNSPECIFIED 06/09/2011 FROY FERRELL DO 493.90 ASTHMA UNSPECIFIED 06/09/2011 FERNANDO MELARA APRN 493.90 ASTHMA UNSPECIFIED 06/09/2011 MARIEL PATEL MD 493.90 ASTHMA UNSPECIFIED 06/09/2011 MARIEL PATEL MD 493.90 ASTHMA UNSPECIFIED 06/09/2011 FERRELL FROY 493.90 ASTHMA UNSPECIFIED 06/09/2011 BRENDON DDS, SEN Nolan 493.90 ASTHMA UNSPECIFIED 06/09/2011 GHASSAN MEJIA FROY Michelle 493.90 ASTHMA UNSPECIFIED 06/09/2011 SARITHA FLORES, FERNANDO CHAND 493.90 ASTHMA UNSPECIFIED 06/09/2011 SARITHA FLORES, FERNANDO CHAND 493.90 ASTHMA UNSPECIFIED 06/09/2011 MARIEL PATEL MD 493.90 ASTHMA UNSPECIFIED 06/09/2011 MARIEL PAETL MD 493.90 ASTHMA UNSPECIFIED 06/09/2011 MARIEL PATEL MD 493.90 ASTHMA UNSPECIFIED 06/09/2011 LE RAMIREZ APRN 493.90 ASTHMA UNSPECIFIED 06/09/2011 MARIEL PATEL MD 493.90 ASTHMA UNSPECIFIED 06/09/2011 JAMES FLORES, LE 493.90 ASTHMA UNSPECIFIED 06/09/2011 MARIEL PATEL MD 493.90 ASTHMA UNSPECIFIED 06/09/2011 MARIEL PATEL MD 493.90 ASTHMA UNSPECIFIED 06/09/2011 JAMES FLORES, LE 493.90 ASTHMA UNSPECIFIED 08/07/2011 MARIEL PATEL MD 296.32 MO DEPRESSIVE RECURRENT MODERATE 08/07/2011 MARIEL PATEL MD V58.69 MEDICATION HIGH RISK 08/07/2011 296.32 MO DEPRESSIVE RECURRENT MODERATE 08/07/2011 V58.69 MEDICATION HIGH RISK 08/07/2011 MARIEL PATEL MD 296.32 MO DEPRESSIVE RECURRENT MODERATE 08/07/2011 MARIEL PATEL MD V58.69 MEDICATION HIGH RISK 08/07/2011 296.32 MO DEPRESSIVE RECURRENT MODERATE 08/07/2011 V58.69 MEDICATION HIGH RISK 08/07/2011 CASEY BLANDON MD 296.32 MO DEPRESSIVE RECURRENT MODERATE 08/07/2011 CASEY BLANDON MD V58.69 MEDICATION HIGH RISK 08/07/2011 296.32 MO DEPRESSIVE RECURRENT MODERATE 08/07/2011 V58.69 MEDICATION HIGH RISK 08/07/2011 JUANITO BLANDON APRN 296.32 MO DEPRESSIVE RECURRENT MODERATE 08/07/2011 JUANITO BLANDON APRN V58.69 MEDICATION HIGH RISK 08/07/2011 296.32 MO DEPRESSIVE RECURRENT MODERATE 08/07/2011 V58.69 MEDICATION HIGH RISK 08/07/2011 296.32 MO DEPRESSIVE RECURRENT MODERATE 08/07/2011 V58.69 MEDICATION HIGH RISK 08/07/2011 MARIEL PATEL MD 296.32 MO DEPRESSIVE RECURRENT MODERATE 08/07/2011 MARIEL PATEL MD V58.69 MEDICATION HIGH RISK 08/07/2011 FERRELL MÓNICA MEJIAA K 296.32 MO DEPRESSIVE RECURRENT MODERATE 08/07/2011 FERRELL MÓNICA MEJIAA K V58.69 MEDICATION HIGH RISK 08/07/2011 MELARA MARK, FERNANDO MANNIE 296.32 MO DEPRESSIVE RECURRENT MODERATE 08/07/2011 SARITHA FLORES, FERNANDO CHAND V58.69 MEDICATION HIGH RISK 08/07/2011 MARIEL PATEL MD 296.32 MO DEPRESSIVE RECURRENT MODERATE 08/07/2011 MARIEL PATEL MD V58.69 MEDICATION HIGH RISK 08/07/2011 MARIEL PATEL MD 296.32 MO DEPRESSIVE RECURRENT MODERATE 08/07/2011 MARIEL PATEL MD V58.69 MEDICATION HIGH RISK 08/07/2011 FERRELL MÓNICA MEJIAA K 296.32 MO DEPRESSIVE RECURRENT MODERATE 08/07/2011 FERRELL DO FROY K V58.69 MEDICATION HIGH RISK 08/07/2011 WHITE DDS, SEN D 296.32 MO DEPRESSIVE RECURRENT MODERATE 08/07/2011 WHITE DDS, SEN D V58.69 MEDICATION HIGH RISK 08/07/2011 FERRELL DO FROY K 296.32 MO DEPRESSIVE RECURRENT MODERATE 08/07/2011 FERRELL DO FROY K V58.69 MEDICATION HIGH RISK 08/07/2011 FERNANDO MELARA APRN 296.32 MO DEPRESSIVE RECURRENT MODERATE 08/07/2011 FERNANDO MELARA APRN V58.69 MEDICATION HIGH RISK 08/07/2011 FERNANDO MELARA APRN 296.32 MO DEPRESSIVE RECURRENT MODERATE 08/07/2011 FERNANDO MELARA APRN V58.69 MEDICATION HIGH RISK 08/07/2011 MARIEL PATEL MD 296.32 MO DEPRESSIVE RECURRENT MODERATE 08/07/2011 MARIEL PATEL MD V58.69 MEDICATION HIGH RISK 08/07/2011 MARIEL PATEL MD 296.32 MO DEPRESSIVE RECURRENT MODERATE 08/07/2011 MARIEL PATEL MD V58.69 MEDICATION HIGH RISK 08/07/2011 MARIEL PATEL MD 296.32 MO DEPRESSIVE RECURRENT MODERATE 08/07/2011 MARIEL PATEL MD V58.69 MEDICATION HIGH RISK 08/07/2011 JAMES BILLBOARD ERECTOR, LE 296.32 MO DEPRESSIVE RECURRENT MODERATE 08/07/2011 JAMES BILLBOARD ERECTOR, LE V58.69 MEDICATION HIGH RISK 08/07/2011 MARIEL PATEL MD 296.32 MO DEPRESSIVE RECURRENT MODERATE 08/07/2011 MARIEL PATEL MD V58.69 MEDICATION HIGH RISK 08/07/2011 JAMES BILLBOARD ERECTOR, LE 296.32 MO DEPRESSIVE RECURRENT MODERATE 08/07/2011 JAMES BILLBOARD ERECTOR, LE V58.69 MEDICATION HIGH RISK 08/07/2011 AMANDA BLANCA, MARIEL 296.32 MO DEPRESSIVE RECURRENT MODERATE 08/07/2011 MARIEL PATEL MD V58.69 MEDICATION HIGH RISK 08/07/2011 MARIEL PATEL MD 296.32 MO DEPRESSIVE RECURRENT MODERATE 08/07/2011 MARIEL PATEL MD V58.69 MEDICATION HIGH RISK 08/07/2011 JAMES BILLBOARD ERECTOR, LE 296.32 MO DEPRESSIVE RECURRENT MODERATE 08/07/2011 JAMES BILLBOARD ERECTOR, LE V58.69 MEDICATION HIGH RISK 08/20/2011 MARIEL PATEL MD 296.80 MO BIPOLAR NOS 08/20/2011 296.80 MO BIPOLAR NOS 08/20/2011 MARIEL PATEL MD 296.80 MO BIPOLAR NOS 08/20/2011 296.80 MO BIPOLAR NOS 08/20/2011 CASEY BLANDON MD 296.80 MO BIPOLAR NOS 08/20/2011 296.80 MO BIPOLAR NOS 08/20/2011 JUANITO BLANDON APRN 296.80 MO BIPOLAR NOS 08/20/2011 296.80 MO BIPOLAR NOS 08/20/2011 296.80 MO BIPOLAR NOS 08/20/2011 MARIEL PATEL MD 296.80 MO BIPOLAR NOS 08/20/2011 FROY FERRELL DO 296.80 MO BIPOLAR NOS 08/20/2011 FERNANDO MELARA APRN 296.80 MO BIPOLAR NOS 08/20/2011 MARIEL PATEL MD 296.80 MO BIPOLAR NOS 08/20/2011 MARIEL PATEL MD 296.80 MO BIPOLAR NOS 08/20/2011 FROY FERRELL DO 296.80 MO BIPOLAR NOS 08/20/2011 SEN OLIVAS DDS 296.80 MO BIPOLAR NOS 08/20/2011 FROY FERRELL DO 296.80 MO BIPOLAR NOS 08/20/2011 SARITHA FLORES, FERNANDO MANNIE 296.80 MO BIPOLAR NOS 08/20/2011 SARITHA FLORES, FERNANDO CHAND 296.80 MO BIPOLAR NOS 08/20/2011 AMANDA BLANCA, MARIEL 296.80 MO BIPOLAR NOS 08/20/2011 AMANDA BLANCA, MARIEL 296.80 MO BIPOLAR NOS 08/20/2011 AMANDA BLANCA, MARIEL 296.80 MO BIPOLAR NOS 08/20/2011 JAMES BILLBOARD ERECTOR, LE 296.80 MO BIPOLAR NOS 08/20/2011 AMANDA BLANCA, MARIEL 296.80 MO BIPOLAR NOS 08/20/2011 JAMES BILLBOARD ERECTOR, LE 296.80 MO BIPOLAR NOS 08/20/2011 AMANDA BLANCA, MARIEL 296.80 MO BIPOLAR NOS 08/20/2011 AMANDA BLANCA, MARIEL 296.80 MO BIPOLAR NOS 08/20/2011 JAMES BILLBOARD ERECTOR, LE 296.80 MO BIPOLAR NOS 10/18/2011 MARIEL PATEL MD V04.81 FLU DX (3 YRS AND ABOVE, IM) 10/18/2011 V04.81 FLU DX (3 YRS AND ABOVE, IM) 10/18/2011 MARIEL PATEL MD V04.81 FLU DX (3 YRS AND ABOVE, IM) 10/18/2011 V04.81 FLU DX (3 YRS AND ABOVE, IM) 10/18/2011 CASEY BLANDON MD V04.81 FLU DX (3 YRS AND ABOVE, IM) 10/18/2011 V04.81 FLU DX (3 YRS AND ABOVE, IM) 10/18/2011 JUANITO BLANDON APRN V04.81 FLU DX (3 YRS AND ABOVE, IM) 10/18/2011 V04.81 FLU DX (3 YRS AND ABOVE, IM) 10/18/2011 V04.81 FLU DX (3 YRS AND ABOVE, IM) 10/18/2011 MARIEL PATEL MD V04.81 FLU DX (3 YRS AND ABOVE, IM) 10/18/2011 FROY FERRELL DO V04.81 FLU DX (3 YRS AND ABOVE, IM) 10/18/2011 FERNANDO MELARA APRN V04.81 FLU DX (3 YRS AND ABOVE, IM) 10/18/2011 MARIEL PATEL MD V04.81 FLU DX (3 YRS AND ABOVE, IM) 10/18/2011 MARIEL PATEL MD V04.81 FLU DX (3 YRS AND ABOVE, IM) 10/18/2011 FROY FERRELL DO V04.81 FLU DX (3 YRS AND ABOVE, IM) 10/18/2011 RBENDON CASTILLOSSEN Ovidio V04.81 FLU DX (3 YRS AND ABOVE, IM) 10/18/2011 FROY FERRELL DO V04.81 FLU DX (3 YRS AND ABOVE, IM) 10/18/2011 SARITHA FLORES FERNANDO MANNIE V04.81 FLU DX (3 YRS AND ABOVE, IM) 10/18/2011 SARITHA FLORES FERNANDO MANNIE V04.81 FLU DX (3 YRS AND ABOVE, IM) 10/18/2011 MARIEL PATEL MD V04.81 FLU DX (3 YRS AND ABOVE, IM) 10/18/2011 MARIEL PATEL MD V04.81 FLU DX (3 YRS AND ABOVE, IM) 10/18/2011 MARIEL PATEL MD V04.81 FLU DX (3 YRS AND ABOVE, IM) 10/18/2011 LE RAMIREZ APRN V04.81 FLU DX (3 YRS AND ABOVE, IM) 10/18/2011 MARIEL PATEL MD V04.81 FLU DX (3 YRS AND ABOVE, IM) 10/18/2011 LE RAMIREZ APRN V04.81 FLU DX (3 YRS AND ABOVE, IM) 10/18/2011 MARIEL PATEL MD V04.81 FLU DX (3 YRS AND ABOVE, IM) 10/18/2011 MARIEL PATEL MD V04.81 FLU DX (3 YRS AND ABOVE, IM) 10/18/2011 LE RAMIREZ APRN V04.81 FLU DX (3 YRS AND ABOVE, IM) 11/19/2011 MARIEL PATEL MD 465.9 UPPER RESPIRATORY INFECTION 11/19/2011 465.9 UPPER RESPIRATORY INFECTION 11/19/2011 MARIEL PATEL MD 465.9 UPPER RESPIRATORY INFECTION 11/19/2011 465.9 UPPER RESPIRATORY INFECTION 11/19/2011 CASEY BLANDON MD 465.9 UPPER RESPIRATORY INFECTION 11/19/2011 465.9 UPPER RESPIRATORY INFECTION 11/19/2011 JUANITO BLANDON APRN 465.9 UPPER RESPIRATORY INFECTION 11/19/2011 465.9 UPPER RESPIRATORY INFECTION 11/19/2011 465.9 UPPER RESPIRATORY INFECTION 11/19/2011 AMANDA BLANCA, MARIEL 465.9 UPPER RESPIRATORY INFECTION 11/19/2011 FERRELL DO, FROY K 465.9 UPPER RESPIRATORY INFECTION 11/19/2011 SARITHA FLORES, FERNANDO OATESH 465.9 UPPER RESPIRATORY INFECTION 11/19/2011 MARIEL PATEL MD 465.9 UPPER RESPIRATORY INFECTION 11/19/2011 MARIEL PATEL MD 465.9 UPPER RESPIRATORY INFECTION 11/19/2011 FERRELL DO, FROY K 465.9 UPPER RESPIRATORY INFECTION 11/19/2011 WHITE DDS, SEN Ovidio 465.9 UPPER RESPIRATORY INFECTION 11/19/2011 FERRELL DO, FROY K 465.9 UPPER RESPIRATORY INFECTION 11/19/2011 SARITHA FLORES, FERNANDO OATESH 465.9 UPPER RESPIRATORY INFECTION 11/19/2011 SARITHA FLORES, FERNANDO OATESH 465.9 UPPER RESPIRATORY INFECTION 11/19/2011 MARIEL PATEL MD 465.9 UPPER RESPIRATORY INFECTION 11/19/2011 MARIEL PATEL MD 465.9 UPPER RESPIRATORY INFECTION 11/19/2011 MARIEL PATEL MD 465.9 UPPER RESPIRATORY INFECTION 11/19/2011 LE RAMIREZ APRN 465.9 UPPER RESPIRATORY INFECTION 11/19/2011 MARIEL PATEL MD 465.9 UPPER RESPIRATORY INFECTION 11/19/2011 LE RAMIREZ APRN 465.9 UPPER RESPIRATORY INFECTION 11/19/2011 MARIEL PATEL MD 465.9 UPPER RESPIRATORY INFECTION 11/19/2011 MARIEL PATEL MD 465.9 UPPER RESPIRATORY INFECTION 11/19/2011 LE RAMIREZ APRN 465.9 UPPER RESPIRATORY INFECTION 12/29/2011 MARIEL PATEL MD V06.1 TDAP DX 12/29/2011 V06.1 TDAP DX 12/29/2011 MARIEL PATEL MD V06.1 TDAP DX 12/29/2011 V06.1 TDAP DX 12/29/2011 CASEY BLANDON MD V06.1 TDAP DX 12/29/2011 V06.1 TDAP DX 12/29/2011 JUANITO BLANDON APRN V06.1 TDAP DX 12/29/2011 V06.1 TDAP DX 12/29/2011 V06.1 TDAP DX 12/29/2011 MARIEL PATEL MD V06.1 TDAP DX 12/29/2011 GHASSAN MEJIA FROY K V06.1 TDAP DX 12/29/2011 SARITHA FLORES, FERNANDO OATESH V06.1 TDAP DX 12/29/2011 AMANDA BLANCA, MRAIEL V06.1 TDAP DX 12/29/2011 MARIEL PATEL MD V06.1 TDAP DX 12/29/2011 FERRELL DO, FROY K V06.1 TDAP DX 12/29/2011 BRENDON DDSSEN V06.1 TDAP DX 12/29/2011 FERRELL DO, FROY K V06.1 TDAP DX 12/29/2011 SARITHA BILLBOARD ERECTOR, FERNANDO MANNIE V06.1 TDAP DX 12/29/2011 MELARA BILLBOARD ERECTOR, FERNANDO MANNIE V06.1 TDAP DX 12/29/2011 AMANDA BLANCA, MARIEL V06.1 TDAP DX 12/29/2011 MARIEL PATEL MD V06.1 TDAP DX 12/29/2011 AMANDA BLANCA, MARIEL V06.1 TDAP DX 12/29/2011 JAMES FLORES, LE V06.1 TDAP DX 12/29/2011 AMANDA BLANCA, MARIEL V06.1 TDAP DX 12/29/2011 JAMES BILLBOARD ERECTOR, LE V06.1 TDAP DX 12/29/2011 AMANDA BLANCA, MARIEL V06.1 TDAP DX 12/29/2011 AMANDA BLANCA, MARIEL V06.1 TDAP DX 12/29/2011 JAMES BILLBOARD ERECTOR, LE V06.1 TDAP DX 10/29/2012 305.1 NONDEPENDENT TOBACCO USE DISORDER 10/29/2012 MARIEL PATEL MD 305.1 NONDEPENDENT TOBACCO USE DISORDER 10/29/2012 305.1 NONDEPENDENT TOBACCO USE DISORDER 10/29/2012 CASEY BLANDON MD 305.1 NONDEPENDENT TOBACCO USE DISORDER 10/29/2012 305.1 NONDEPENDENT TOBACCO USE DISORDER 10/29/2012 JUANITO BLANDON APRN 305.1 NONDEPENDENT TOBACCO USE DISORDER 10/29/2012 305.1 NONDEPENDENT TOBACCO USE DISORDER 10/29/2012 305.1 NONDEPENDENT TOBACCO USE DISORDER 10/29/2012 MARIEL PATEL MD 305.1 NONDEPENDENT TOBACCO USE DISORDER 10/29/2012 FROY FERRELL DO 305.1 NONDEPENDENT TOBACCO USE DISORDER 10/29/2012 SARITHA FLORES, FERNANDO CHAND 305.1 NONDEPENDENT TOBACCO USE DISORDER 10/29/2012 MARIEL PATEL MD 305.1 NONDEPENDENT TOBACCO USE DISORDER 10/29/2012 MARIEL PATEL MD 305.1 NONDEPENDENT TOBACCO USE DISORDER 10/29/2012 FERRELL DOFROY K 305.1 NONDEPENDENT TOBACCO USE DISORDER 10/29/2012 WHITE DDS, SEN D 305.1 NONDEPENDENT TOBACCO USE DISORDER 10/29/2012 FERRELL DOFROY K 305.1 NONDEPENDENT TOBACCO USE DISORDER 10/29/2012 SARITHA FLORES FERNANDO CHAND 305.1 NONDEPENDENT TOBACCO USE DISORDER 10/29/2012 SARITHA FLORES FERNANDO OATESH 305.1 NONDEPENDENT TOBACCO USE DISORDER 10/29/2012 MARIEL PATEL MD 305.1 NONDEPENDENT TOBACCO USE DISORDER 10/29/2012 MARIEL PATEL MD 305.1 NONDEPENDENT TOBACCO USE DISORDER 10/29/2012 MARIEL PATEL MD 305.1 NONDEPENDENT TOBACCO USE DISORDER 10/29/2012 LE RAMIREZ APRN 305.1 NONDEPENDENT TOBACCO USE DISORDER 10/29/2012 MARIEL PATEL MD 305.1 NONDEPENDENT TOBACCO USE DISORDER 10/29/2012 LE RAMIREZ APRN 305.1 NONDEPENDENT TOBACCO USE DISORDER 10/29/2012 MARIEL PATEL MD 305.1 NONDEPENDENT TOBACCO USE DISORDER 10/29/2012 MARIEL PATEL MD 305.1 NONDEPENDENT TOBACCO USE DISORDER 10/29/2012 LE RAMIREZ APRN 305.1 NONDEPENDENT TOBACCO USE DISORDER 12/21/2012 MARIEL PATEL MD 427.89 OTHER SPECIFIED CARDIAC DYSRHYTHMIAS 12/21/2012 427.89 OTHER SPECIFIED CARDIAC DYSRHYTHMIAS 12/21/2012 CASEY BLANDON MD 427.89 OTHER SPECIFIED CARDIAC DYSRHYTHMIAS 12/21/2012 427.89 OTHER SPECIFIED CARDIAC DYSRHYTHMIAS 12/21/2012 JUANITO BLANDON APRN 427.89 OTHER SPECIFIED CARDIAC DYSRHYTHMIAS 12/21/2012 427.89 OTHER SPECIFIED CARDIAC DYSRHYTHMIAS 12/21/2012 427.89 OTHER SPECIFIED CARDIAC DYSRHYTHMIAS 12/21/2012 MARIEL PATEL MD 427.89 OTHER SPECIFIED CARDIAC DYSRHYTHMIAS 12/21/2012 GHASSAN DOFROY K 427.89 OTHER SPECIFIED CARDIAC DYSRHYTHMIAS 12/21/2012 FERNANDO MELARA APRN 427.89 OTHER SPECIFIED CARDIAC DYSRHYTHMIAS 12/21/2012 MARIEL PATEL MD 427.89 OTHER SPECIFIED CARDIAC DYSRHYTHMIAS 12/21/2012 MARIEL PATEL MD 427.89 OTHER SPECIFIED CARDIAC DYSRHYTHMIAS 12/21/2012 FERRELL DOMÓNICAA K 427.89 OTHER SPECIFIED CARDIAC DYSRHYTHMIAS 12/21/2012 BRENDON DDS, SEN Nolan 427.89 OTHER SPECIFIED CARDIAC DYSRHYTHMIAS 12/21/2012 FERRELL DOFROY K 427.89 OTHER SPECIFIED CARDIAC DYSRHYTHMIAS 12/21/2012 FERNANDO MELARA APRN 427.89 OTHER SPECIFIED CARDIAC DYSRHYTHMIAS 12/21/2012 FERNANDO MELARA APRN 427.89 OTHER SPECIFIED CARDIAC DYSRHYTHMIAS 12/21/2012 MARIEL PATEL MD 427.89 OTHER SPECIFIED CARDIAC DYSRHYTHMIAS 12/21/2012 MARIEL PATEL MD 427.89 OTHER SPECIFIED CARDIAC DYSRHYTHMIAS 12/21/2012 MARIEL PATEL MD 427.89 OTHER SPECIFIED CARDIAC DYSRHYTHMIAS 12/21/2012 LE RAMIREZ APRN 427.89 OTHER SPECIFIED CARDIAC DYSRHYTHMIAS 12/21/2012 MARIEL PATEL MD 427.89 OTHER SPECIFIED CARDIAC DYSRHYTHMIAS 12/21/2012 LE RAMIREZ APRN 427.89 OTHER SPECIFIED CARDIAC DYSRHYTHMIAS 12/21/2012 MARIEL PATEL MD 427.89 OTHER SPECIFIED CARDIAC DYSRHYTHMIAS 12/21/2012 MARIEL PATEL MD 427.89 OTHER SPECIFIED CARDIAC DYSRHYTHMIAS 12/21/2012 JAMES FLORES LE 427.89 OTHER SPECIFIED CARDIAC DYSRHYTHMIAS 12/23/2012 Ot 296.50 BIPOL I, REC EPIS (OR CURRENT) DEPRESSED 12/23/2012 Ot 305.1 TOBACCO USE DISORDER 12/23/2012 Ot 305.20 CANNABIS ABUSE-UNSPEC 12/23/2012 Ot 427.89 CARDIAC DYSRHYTHMIAS NEC 12/23/2012 Ot 786.50 CHEST PAIN NOS 12/23/2012 Ot E939.8 ADV EFF PSYCHOTROPIC NEC 12/23/2012 Ot V03.82 PROPHYLACTIC VACC AGAINST STREPTOCOCCUS 03/04/2013 JUANITO BLANDON APRN 782.1 RASH 03/04/2013 782.1 RASH 03/04/2013 782.1 RASH 03/04/2013 MARIEL PATEL MD 782.1 RASH 03/04/2013 FROY FERRELL DO 782.1 RASH 03/04/2013 SARITHA FLORES, FERNANDO CHAND 782.1 RASH 03/04/2013 MARIEL PATEL MD 782.1 RASH 03/04/2013 MARIEL PATEL MD 782.1 RASH 03/04/2013 FROY FERRELL DO 782.1 RASH 03/04/2013 BRENDON CASTILLOSSEN 782.1 RASH 03/04/2013 FROY FERRELL DO 782.1 RASH 03/04/2013 SARITHA FLORES, FERNANDO OATESH 782.1 RASH 03/04/2013 SARITHA FLORES FERNANDO MANNIE 782.1 RASH 03/04/2013 MARIEL PATEL MD 782.1 RASH 03/04/2013 MARIEL PATEL MD 782.1 RASH 03/04/2013 MARIEL PATEL MD 782.1 RASH 03/04/2013 JAMES BILLBOARD ERECTOR, LE 782.1 RASH 03/04/2013 AMANDA BLANCA, MARIEL 782.1 RASH 03/04/2013 JAMES BILLBOARD ERECTOR, LE 782.1 RASH 03/04/2013 MARIEL PATEL MD 782.1 RASH 03/04/2013 MARIEL PATEL MD 782.1 RASH 03/04/2013 JAMES BILLBOARD ERECTOR, LE 782.1 RASH 09/20/2013 MARIEL PATEL MD CHRONIC AIRWAY OBSTRUCTION NOT ELSEWHERE CLASSIFIED 09/20/2013 FROY FERRELL DO 496 CHRONIC AIRWAY OBSTRUCTION NOT ELSEWHERE CLASSIFIED 09/20/2013 FERNANDO MELARA APRN [employer] CHRONIC AIRWAY OBSTRUCTION NOT ELSEWHERE CLASSIFIED 09/20/2013 MARIEL PATEL MD CHRONIC AIRWAY OBSTRUCTION NOT ELSEWHERE CLASSIFIED 09/20/2013 MARIEL PATEL MD CHRONIC AIRWAY OBSTRUCTION NOT ELSEWHERE CLASSIFIED 09/20/2013 FROY FERRELL DO 496 CHRONIC AIRWAY OBSTRUCTION NOT ELSEWHERE CLASSIFIED 09/20/2013 BRENDON DDS, SEN Nolan 496 CHRONIC AIRWAY OBSTRUCTION NOT ELSEWHERE CLASSIFIED 09/20/2013 FROY FERRELL DO 496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
[2018-01-15 17:17] VITALS: BP 118/70
== END 2018-01-15 17:17 | disposition home or self-care (01) ==
LOC: EDUNIT# 14:28 → ER 14:30
DX: N39.0 Urinary tract infection, site not specified (principal); J43.9 Emphysema, unspecified; F41.9 Anxiety disorder, unspecified; F31.9 Bipolar disorder, unspecified; G47.00 Insomnia, unspecified; B19.20 Unspecified viral hepatitis C without hepatic coma; Z88.2 Allergy status to sulfonamides; Z90.89 Acquired absence of other organs; Z80.1 Family history of malignant neoplasm of trachea, bronchus and lung
CPT/HCPCS: 36415; 74177; 80053; 81000; 83690; 85025; 87088

== ENCOUNTER 2018-03-07 19:22 | Emergency (ER) | payer BC ==
[~2018-03-07] VITALS: Ht 170.2 cm; Wt 108.9 kg
[~2018-03-07 19:22] MED LIST changes: +CEFU250T80 PO; +NAPR-915 PO; -NAPR500T4 PO; -SERT20OR PO
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
[2018-03-07] MEDS ORDERED: RT-ALBUTEROL/IPRATROPIUM 3 ML (DUONEB) VIAL ONE (19:42)
[2018-03-07] MEDS ORDERED: RT-ALBUTEROL/IPRATROPIUM 3 ML (DUONEB) VIAL INH ONE (19:45)
[2018-03-07 19:53] LABS: BASOPHILS # (AUTO) 0.1 10^3/uL (0.0-0.1); BASOPHILS % (AUTO) 1 % (0-10); EOSINOPHILS # (AUTO) 0.3 10^3/uL (0.0-0.3); EOSINOPHILS % (AUTO) 2 % (0-10); HEMATOCRIT 41 % (40-54); HEMOGLOBIN 14.2 G/DL (13.3-17.7); LYMPHOCYTES # (AUTO) 2.8 X 10^3 (1.0-4.0); LYMPHOCYTES % (AUTO) 20 % (12-44); MEAN CORPUSCULAR HEMOGLOBIN 30 PG (25-34); MEAN CORPUSCULAR HGB CONC 35 G/DL (32-36); MEAN CORPUSCULAR VOLUME 87 FL (80-99); MEAN PLATELET VOLUME 9.7 FL (7.4-10.4); MONOCYTES # (AUTO) 2.4 X 10^3 (0.0-1.0); MONOCYTES % (AUTO) 17 % (0-12); NEUTROPHILS # (AUTO) 8.5 X 10^3 (1.8-7.8); NEUTROPHILS % (AUTO) 60 % (42-75); PLATELET COUNT 219 10^3/uL (130-400); RED BLOOD COUNT 4.68 10^6/uL (4.35-5.85); RED CELL DISTRIBUTION WIDTH 13.5 % (10.0-14.5); WHITE BLOOD COUNT 14.1 10^3/uL (4.3-11.0)
--- NOTE | 2018-03-07 19:55 | ED GI ---
General Chief Complaint: Abdominal/GI Problems Stated Complaint: ABD PAIN/CONSTIPATION Allergies and Home Medications Allergies Coded Allergies: Sulfa (Sulfonamide Antibiotics) (Unverified Allergy, Unknown, 06/09/08) Home Medications Albuterol Sulfate 1 Puff Puff, 2 PUFF IH Q4H Prescribed by: SANTIAGO MONGE on 03/07/182215 Albuterol Sulfate 2.5 Mg/3 Ml Vial.neb, 2.5 MG IH Q4H Prescribed by: SANTIAGO MONGE on 03/07/182215 Budesonide/Formoterol Fumarate 10.2 Gm Hfa.aer.ad, 2 PUFF IH BID, (Reported) Cefuroxime Axetil 250 Mg Tablet, 250 MG PO BID Prescribed by: MARKO LINARES on 01/15/181642 Ciprofloxacin HCl 500 Mg Tablet, 500 MG PO BID Prescribed by: SANTIAGO MONGE on 03/07/182133 Clindamycin HCl 300 Mg Capsule, 300 MG PO QID Prescribed by: SANTIAGO MONGE on 04/27/172029 Divalproex Sodium 500 Mg Tablet.dr, 1,000 MG PO BID, (Reported) Hyoscyamine Sulfate 0.125 Mg Tab.subl, 1-2 TAB SL Q4H Prescribed by: SANTIAGO MONGE on 03/07/182133 Mupirocin Calcium 15 Gm Cream..g., 15 GM TP BID Prescribed by: SANTIAGO MONGE on 04/27/172029 Quetiapine Fumarate 50 Mg Tablet, 50 MG PO HS, (Reported) Sertraline HCl 100 Mg Tablet, 100 MG PO DAILY, (Reported) Tamsulosin HCl 0.4 Mg Cap, 0.4 MG PO DAILY Prescribed by: SANTIAGO MONGE on 03/07/182133 Varenicline Tartrate 1 Each Tab.ds.pk, 1 EACH PO DAILY, (Reported) Past Cadpopr-Cfmatq-Tdmjae Hx Patient Social History Alcohol Beverage of Choice: Beer Recent Foreign Travel: No Contact w/Someone Who Travel: No Recent Hopitalizations: Yes Immunizations Up To Date Tetanus Booster (TDap): More than 5yrs Date of Pneumonia Vaccine: Sep 22, 2014 Date of Influenza Vaccine: Sep 30, 2015 Seasonal Allergies Seasonal Allergies: Yes Past Medical History Surgeries: Yes (TONSILLECTOMY, URETHRAL SURGERY , FINGER) Orthopedic, Tonsillectomy Respiratory: Yes Asthma, COPD, Emphysema Currently Using CPAP: No Currently Using BIPAP: No Cardiac: Yes (EPISODES OF BRADYCARDIA) Neurological: No Reproductive Disorders: No HIV/AIDS: No Gastrointestinal: Yes (HEP C) Hepatitis Musculoskeletal: Yes (BROKE BACK 2013) Endocrine: No Loss of Vision: Denies Hearing Impairment: Denies Cancer: No Psychosocial: Yes (insomnia) Anxiety, Bipolar Integumentary: No Blood Disorders: No Adverse Reaction/Blood Tranf: No Family Medical History Diabetes mellitus 19 MOTHER FH: COPD (chronic obstructive pulmonary disease) 19 MOTHER FH: emphysema 19 FATHER FH: lung cancer 19 FATHER Physical Exam Vital Signs Vital Signs - First Documented 03/07/18 19:40 Temp 96.4 Pulse 85 Resp 16 B/P (MAP) 133/94 (107) Pulse Ox 97 O2 Delivery Room Air Capillary Refill : Progress/Results/Core Measures Lab Results Laboratory Tests Test 03/07/18 19:40 03/07/18 20:33 Range/Units White Blood Count 14.1 H 4.3-11.0 10^3/uL Red Blood Count 4.68 4.35-5.85 10^6/uL Hemoglobin 14.2 13.3-17.7 G/DL Hematocrit 41 40-54 % Mean Corpuscular Volume 87 80-99 FL Mean Corpuscular Hemoglobin 30 25-34 PG Mean Corpuscular Hemoglobin Concent 35 32-36 G/DL Red Cell Distribution Width 13.5 10.0-14.5 % Platelet Count 219 130-400 10^3/uL Mean Platelet Volume 9.7 7.4-10.4 FL Neutrophils (%) (Auto) 60 42-75 % Lymphocytes (%) (Auto) 20 12-44 % Monocytes (%) (Auto) 17 H 0-12 % Eosinophils (%) (Auto) 2 0-10 % Basophils (%) (Auto) 1 0-10 % Neutrophils # (Auto) 8.5 H 1.8-7.8 X 10^3 Lymphocytes # (Auto) 2.8 1.0-4.0 X 10^3 Monocytes # (Auto) 2.4 H 0.0-1.0 X 10^3 Eosinophils # (Auto) 0.3 0.0-0.3 10^3/uL Basophils # (Auto) 0.1 0.0-0.1 10^3/uL Neutrophils % (Manual) 46 % Lymphocytes % (Manual) 15 % Monocytes % (Manual) 20 % Eosinophils % (Manual) 1 % Basophils % (Manual) 0 % Band Neutrophils 10 % Reactive Lymphocytes 8 % Toxic Granulation 1+ Rouleau SLIGHT Prothrombin Time 14.6 12.2-14.7 SEC INR Comment 1.1 0.8-1.4 Activated Partial Thromboplast Time 30 24-35 SEC Sodium Level 136 135-145 MMOL/L Potassium Level 4.9 3.6-5.0 MMOL/L Chloride Level 102 98-107 MMOL/L Carbon Dioxide Level 28 21-32 MMOL/L Anion Gap 6 5-14 MMOL/L Blood Urea Nitrogen 12 7-18 MG/DL Creatinine 0.77 0.60-1.30 MG/DL Estimat Glomerular Filtration Rate > 60 BUN/Creatinine Ratio 16 Glucose Level 123 H 70-105 MG/DL Calcium Level 8.5 8.5-10.1 MG/DL Magnesium Level 2.0 1.8-2.4 MG/DL Total Bilirubin 0.6 0.1-1.0 MG/DL Aspartate Amino Transf (AST/SGOT) 19 5-34 U/L Alanine Aminotransferase (ALT/SGPT) 22 0-55 U/L Alkaline Phosphatase 65 40-136 U/L Total Protein 7.5 6.4-8.2 GM/DL Albumin 3.8 3.2-4.5 GM/DL Amylase Level 69 25-125 U/L Lipase 47 8-78 U/L Valproic Acid (Depakene) Level 32.0 L 50.0-100.0 UG/ML Serum Alcohol < 10 <10 MG/DL Urine Color YELLOW Urine Clarity VERY CLOUDY H Urine pH 8 5-9 Urine Specific [place] 1.010 L 1.016-1.022 Urine Protein 2+ H NEGATIVE Urine Glucose (UA) NEGATIVE NEGATIVE Urine Ketones 1+ H NEGATIVE Urine Nitrite NEGATIVE NEGATIVE Urine Bilirubin NEGATIVE NEGATIVE Urine Urobilinogen NORMAL NORMAL MG/DL Urine Leukocyte Esterase 3+ H NEGATIVE Urine RBC (Auto) 2+ H NEGATIVE Urine RBC 5-10 H /HPF Urine WBC >100 H /HPF Urine Squamous Epithelial Cells 2-5 /HPF Urine Renal Epithelial Cells NONE /HPF Urine Crystals NONE /LPF Urine Bacteria FEW H /HPF Urine Casts NONE /LPF Urine Mucus NEGATIVE /LPF Urine Culture Indicated YES Urine Opiates Screen NEGATIVE NEGATIVE Urine Oxycodone Screen NEGATIVE NEGATIVE Urine Methadone Screen NEGATIVE NEGATIVE Urine Propoxyphene Screen NEGATIVE NEGATIVE Urine Barbiturates Screen NEGATIVE NEGATIVE Ur Tricyclic Antidepressants Screen POSITIVE H NEGATIVE Urine Phencyclidine Screen NEGATIVE NEGATIVE Urine Amphetamines Screen NEGATIVE NEGATIVE Urine Methamphetamines Screen NEGATIVE NEGATIVE Urine Benzodiazepines Screen NEGATIVE NEGATIVE Urine Cocaine Screen NEGATIVE NEGATIVE Urine Cannabinoids Screen NEGATIVE NEGATIVE My Orders Orders - SANTIAGO MONGE DO Saline Lock/Iv-Start (03/07/18 19:44) Monitor-Rhythm Ecg Trace Only (03/07/18 19:44) Ct Abdomen/Pelvis Wo (03/07/18 19:44) Alcohol (03/07/18 19:44) Amylase (03/07/18 19:44) Cbc With Automated Diff (03/07/18 19:44) Comprehensive Metabolic Panel (03/07/18 19:44) Drug Screen Stat (Urine) (03/07/18 19:44) Lipase (03/07/18 19:44) Magnesium (03/07/18 19:44) Protime With Inr (03/07/18 19:44) Partial Thromboplastin Time (03/07/18 19:44) Ua Culture If Indicated (03/07/18 19:44) Acute Abd Series (03/07/18 19:44) Albuterol/Ipra Inhalation Soln (Duoneb I (03/07/18 19:45) Rt Request For Service (03/07/18 19:44) Svn Sm Volume Nebulizer Rt-Rfs (03/07/18 19:44) Bladder Scan (03/07/18 19:44) Manual Differential (03/07/18 19:40) Valproic Acid (03/07/18 20:08) Urine Culture (03/07/18 20:33) Ceftriaxone Injection (Rocephin Injectio (03/07/18 21:15) Levofloxacin Tablet (Levaquin Tablet) (03/07/18 21:15) Alfuzosin (Not Stocked) (Uroxatral (Not (03/07/18 21:15) Medications Given in ED Current Medications Medications Dose Ordered Sig/Hanane Route Start Time Stop Time Status Last Admin Dose Admin Albuterol/ Ipratropium 3 ml STK-MED ONCE .ROUTE 03/07/18 19:42 03/07/18 19:46 DC 03/07/18 19:48 3 ML Ceftriaxone Sodium 1000 mg/ Sodium Chloride 100 ml @ 200 mls/hr ONCE ONCE IV 03/07/18 21:15 03/07/18 21:44 DC 03/07/18 21:24 200 MLS/HR Levofloxacin 500 mg ONCE ONCE PO 03/07/18 21:15 03/07/18 21:16 DC 03/07/18 21:24 500 MG Vital Signs/I&O 03/07/18 03/07/18 19:40 19:49 Temp 96.4 Pulse 85 Resp 16 B/P (MAP) 133/94 (107) Pulse Ox 97 95 O2 Delivery Room Air Room Air Departure Impression Primary Impression: Prostatitis Additional Impressions: Prostate enlargement UTI (urinary tract infection) Constipation Disposition: HOME, SELF-CARE Condition: Improved Departure-Patient Inst. Referrals: MARIEL PATEL MD (PCP/Family) Primary Care Physician MOSES VELÁZQUEZ MD Patient Instructions: COPD Including Emphysema (DC), Constipation, Adult (DC), Prostatitis (DC), Urinary Tract Infection, Adult (DC) Add. Discharge Instructions: CLEAR LIQUIDS--WATER, BROTH, JELLO, GATORADE NO FOOD UNTIL YOUR BOWELS HAVE MOVED AND ARE CLEARED TAKE MIRALAX EVERY 2 HOURS UNTIL YOUR STOOLS ARE CLEAR FLEET'S ENEMAS UNTIL YOU HAVE BOWEL MOVEMENT FOLLOW UP WITH DR. VELÁZQUEZ THIS WEEK FOR FURTHER CARE All discharge instructions reviewed with patient and/or family. Voiced understanding. Scripts Albuterol Sulfate (Albuterol Sulfate) 2.5 Mg/3 Ml Vial.neb 2.5 MG IH Q4H, #1 EA Prov: MARIPOSA,SANTIAGO K DO 03/07/18 Albuterol Sulfate (PROAIR HFA) 1 Puff Puff 2 PUFF IH Q4H for BREATHING, #1 GM Prov: MARIPOSA,SANTIAGO K DO 03/07/18 Hyoscyamine Sulfate (Levsin-Sl) 0.125 Mg Tab.subl 1-2 TAB SL Q4H for Abdominal Pain, #15 TAB Prov: MARIPOSA,SANTIAGO K DO 03/07/18 Tamsulosin HCl (Flomax) 0.4 Mg Cap 0.4 MG PO DAILY, #10 CAP Prov: MARIPOSA,SANTIAGO K DO 03/07/18 Ciprofloxacin HCl (Cipro) 500 Mg Tablet 500 MG PO BID, #20 TAB Prov: SANTIAGO MONGE DO 03/07/18 Work/School Note: Work Release Form Date Seen in the Emergency Department: Mar 07, 2018 Return to Work: Mar 09, 2018 Restrictions: No Restrictions SANTIAGO MONGE DO Mar 07, 2018 19:55
[2018-03-07 20:06] LABS: ALANINE AMINOTRANSFERASE 22 U/L (0-55); ALBUMIN 3.8 GM/DL (3.2-4.5); ALKALINE PHOSPHATASE 65 U/L (40-136); AMYLASE 69 U/L (25-125); BILIRUBIN,TOTAL 0.6 MG/DL (0.1-1.0); BUN/CREATININE RATIO 16; CALCIUM 8.5 MG/DL (8.5-10.1); CARBON DIOXIDE 28 MMOL/L (21-32); CHLORIDE 102 MMOL/L (98-107); CREATININE SERUM 0.77 MG/DL (0.60-1.30); GFR ESTIMATED > 60; GLUCOSE 123 MG/DL (70-105); INR 1.1 (0.8-1.4); LIPASE 47 U/L (8-78); POTASSIUM 4.9 MMOL/L (3.6-5.0); PROTHROMBIN TIME PATIENT 14.6 SEC (12.2-14.7); SODIUM 136 MMOL/L (135-145); TOTAL PROTEIN 7.5 GM/DL (6.4-8.2)
[2018-03-07 20:11] LABS: BAND NEUTROPHILS 10 %; BASOPHILS % (MANUAL) 0 %; EOSINOPHILS % (MANUAL) 1 %; LYMPHOCYTES % (MANUAL) 15 %; MONOCYTES % (MANUAL) 20 %; NEUTROPHILS % (MANUAL) 46 %; REACTIVE LYMPHOCYTES 8 %
[2018-03-07 20:12] LABS: TOXIC GRANULATION/VACUOLAZATIO 1+
[2018-03-07 20:13] LABS: ROULEAUX SLIGHT
[2018-03-07 20:38] LABS: BILIRUBIN,URINE NEGATIVE (NEGATIVE); CLARITY,URINE VERY CLOUDY; COLOR,URINE YELLOW; GLUCOSE, URINE (UA) NEGATIVE (NEGATIVE); KETONES,URINE 1+ (NEGATIVE); LEUKOCYTE ESTERASE ,URINE 3+ (NEGATIVE); NITRITE,URINE NEGATIVE (NEGATIVE); PH,URINE 8 (5-9); PROTEIN,URINE 2+ (NEGATIVE); UROBILINOGEN,URINE NORMAL (NORMAL)
--- NOTE | 2018-03-07 20:43 | Diagnostic Imaging Report ---
PROCEDURE: CT abdomen and pelvis without contrast. TECHNIQUE: Multiple contiguous axial images were obtained through the abdomen and pelvis without the use of intravenous contrast. INDICATION: Abdominal pain and constipation. COMPARISON: 01/05/2018. FINDINGS: Evaluation of the abdominal viscera is mildly limited without contrast. Lower chest: The lung bases are clear. No pericardial or pleural effusion. Peritoneum: No free intraperitoneal air or fluid. Liver and biliary system: Subtle nodularity of the liver surface is unchanged. No focal mass lesion in the liver by noncontrast imaging. The gallbladder is normal. No biliary duct dilation. Spleen and Pancreas: Spleen is normal. Unenhanced pancreas is grossly normal. Adrenals: Normal. tract: No renal or ureteral calculi. No obstructive uropathy. The prostate is enlarged, which is new since prior exam of two months prior. There is a 2.4 x 1.5 cm area of hypoattenuation in the right mikayla-aspect of the prostate. Urinary bladder has circumferential wall thickening with pericystic stranding. GI tract: Stomach is decompressed. No bowel obstruction. No pericolonic inflammatory changes. Normal appendix. Vasculature and Lymph nodes: Normal caliber aorta. No abdominal or pelvic lymphadenopathy. Musculoskeletal: No concerning osseous lesion. IMPRESSION: 1. Imaging features suggest prostatitis with possible superimposed intraparenchymal abscess in the right mikayla-aspect of the prostate. Correlation with digital rectal exam is suggested to assess for prostate tenderness. 2. Wall thickening of the urinary bladder with surrounding inflammation is most indicative of cystitis. Correlation with urinalysis is recommended. Dictated by: Dictated on workstation # [id number]
[2018-03-07 20:53] LABS: BACTERIA,URINE FEW /HPF; WBC,URINE >100 /HPF
--- NOTE | 2018-03-07 20:58 | Diagnostic Imaging Report ---
INDICATION: Abdominal pain and constipation. COMPARISON: CT abdomen and pelvis performed prior day. FINDINGS: Lungs are clear. No pleural effusion or pneumothorax. Normal cardiomediastinal silhouette. No free intraperitoneal air. Nonobstructive bowel gas pattern. Normal regional skeleton. IMPRESSION: 1. Nonobstructive bowel gas pattern. 2. Please see CT abdomen and pelvis report for findings suspicious of prostatitis and cystitis. Dictated by: Dictated on workstation # [id number]
[2018-03-07 20:59] LABS: AMPHETAMINE SCREEN, URINE NEGATIVE (NEGATIVE); BARBITURATE SCREEN URINE NEGATIVE (NEGATIVE); BENZODIAZEPINES SCREEN URINE NEGATIVE (NEGATIVE); CANNABINOID SCREEN, URINE NEGATIVE (NEGATIVE); COCAINE SCREEN URINE NEGATIVE (NEGATIVE); METHADONE STAT NEGATIVE (NEGATIVE); METHAMPHETAMINE SCREEN URINE S NEGATIVE (NEGATIVE); OPIATE SCREEN URINE NEGATIVE (NEGATIVE); OXYCODONE STAT NEGATIVE (NEGATIVE); PROPOXYPHENE STAT NEGATIVE (NEGATIVE); TRICYCLIC ANTIDEPRESSANTS SCRE POSITIVE (NEGATIVE)
[2018-03-07] MEDS ORDERED: LEVOFLOXACIN 500 MG TAB (LEVAQUIN) PO ONE (21:15)
[2018-03-07] MEDS ORDERED: cefTRIAXone INJECTION 1,000 MG in NS (IVPB) 100 ML IV ONE (21:15)
[2018-03-07] MEDS ORDERED: ALFUZOSIN HCL 10 MG TAB (UROXATRAL) PO SCH (21:15)
[2018-03-07] MEDS ORDERED: TAMS0.4C98 PO (21:34)
[2018-03-07] MEDS ORDERED: CIPR-225 PO (21:34)
[2018-03-07] MEDS ORDERED: HYOS0.1283 SL (21:34)
[2018-03-07] MEDS ORDERED: RT-ALBUINH IH (22:16)
[2018-03-07] MEDS ORDERED: ALBU2.5V4 IH (22:16)
[2018-03-07 22:39] VITALS: BP 119/74
== END 2018-03-07 22:28 | disposition home or self-care (01) ==
LOC: EDUNIT# 19:22 → ER 19:24
DX: N41.0 Acute prostatitis (principal); N39.0 Urinary tract infection, site not specified; K59.00 Constipation, unspecified; G47.00 Insomnia, unspecified; J43.9 Emphysema, unspecified; F41.9 Anxiety disorder, unspecified; F31.9 Bipolar disorder, unspecified; Z87.19 Personal history of other diseases of the digestive system; Z90.89 Acquired absence of other organs; Z88.2 Allergy status to sulfonamides; Z87.828 Personal history of other (healed) physical injury and trauma
CPT/HCPCS: 36415; 74022; 74176; 80053; 80164; 80306; 80320; 81000; 82150; 83690; 83735; 85007; 85027; 85610; 85730; 87077; 87088; 87186; 93041; 94640

== ENCOUNTER 2018-03-14 08:40 | Emergency (ER) | payer BC ==
[~2018-03-14] VITALS: Ht 180.3 cm; Wt 52.6 kg
[~2018-03-14 08:40] MED LIST changes: +ALBU2.5V4 IH; +CIPR-225 PO; -CYPR4TAB PO; +CYPR4TAB41 PO; +DIVA-74 PO; +DIVA-76 PO; -DIVA250T4 PO; -DIVA500T7 PO; +HYOS0.1283 SL; +TAMS0.4C98 PO
[2018-03-14 10:04] LABS: BILIRUBIN,URINE NEGATIVE (NEGATIVE); CLARITY,URINE VERY CLOUDY; COLOR,URINE YELLOW; GLUCOSE, URINE (UA) NEGATIVE (NEGATIVE); KETONES,URINE 1+ (NEGATIVE); LEUKOCYTE ESTERASE ,URINE 3+ (NEGATIVE); NITRITE,URINE NEGATIVE (NEGATIVE); PH,URINE 6 (5-9); PROTEIN,URINE 2+ (NEGATIVE); UROBILINOGEN,URINE NORMAL (NORMAL)
[2018-03-14 10:11] LABS: BACTERIA,URINE TRACE /HPF; WBC,URINE TNTC /HPF
--- OUTSIDE RECORDS SUMMARY | 2018-03-14 10:51 | XMS REPORT ---
Author Author MARIEL PATEL [facility] Address [address] [place] [address] Care Team Providers Care Compensation And Hris Analyst Name Role Phone MARIEL PATEL Unavailable PROBLEMS Type Condition ICD9-CM Code [id number] Code Onset Dates Condition Status SNOMED Code Problem Alcohol abuse F10.10 Active 21016726 Problem Chronic obstructive pulmonary disease, unspecified COPD type J44.9 Active 31081969 Problem Alcohol use disorder, moderate, dependence F10.20 Active 409506226 Problem Bipolar disorder F31.9 Active 75910816 Problem PTSD (post-traumatic stress disorder) F43.10 Active 81953586 Problem Social phobia, generalized F40.11 Active 79420747 Problem COPD exacerbation J44.1 Active [id number] Problem Cannabis dependence with or without physiological dependence F12.20 Active 21009535 Problem Gastroesophageal reflux disease, esophagitis presence not specified K21.9 Active 763306341 Problem Cigarette nicotine dependence without complication F17.210 Active 07590891 Problem Chronic hepatitis C without hepatic coma B18.2 Active 733933935 Problem Alcohol use disorder, severe, 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 Active [id number] ALLERGIES No Information ENCOUNTERS Encounter Location Date Diagnosis [facility] [address] [id number] [address] Apr, [facility] [address] [place] [address] Apr, [facility] [id number] [place] [address] 85649- 7767 March, [facility] [address] [place] [address] Feb, [facility] [address] [id number] [address] Feb, Chronic hepatitis C without hepatic coma B18.2 [facility] [address] [place] [address] Feb, [facility] [id number] [place] [address] 34141- 9914 Jan, [facility] [address] [address] Jan, [facility] [id number] [place] [address] 39758- 1710 Jan, Chronic hepatitis C without hepatic coma B18.2 and Encounter for immunization Z23 [facility] [id number] [place] [address] 42124- 5309 Jan, Chronic obstructive pulmonary disease, unspecified COPD type J44.9 and Bipolar disorder F31.9 [facility] [address] [place] [address] Jan, Alcohol use disorder, severe, 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 [facility] [address] [place] [address] 26 Dec, 2017 Alcohol use disorder, severe, 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 and Cannabis dependence with or without physiological dependence F12.20 [facility] [id number] [place] [address] 45008- 9952 15 Dec, 2017 [facility] [id number] [place] [address] 65037- 6188 14 Dec, 2017 Right upper quadrant pain R10.11 [facility] [address] [place] [address] 12 Dec, 2017 Alcohol use disorder, severe, 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 and Cannabis dependence with or without physiological dependence F12.20 [facility] [id number] [place] [address] 73797- 3588 08 Dec, 2017 Chronic hepatitis C without hepatic coma B18.2 [facility] [id number] [place] [address] 13365- 2578 06 Dec, 2017 Chronic hepatitis C without hepatic coma B18.2 [facility] [address] [place] [address] Nov, Alcohol use disorder, moderate, dependence F10.20 [facility] [address] [place] [address] Nov, Chronic hepatitis C without hepatic coma B18.2 [facility] [id number] [place] [address] 57933- 3617 Nov, [facility] [id number] [place] [address] 21502- 0596 Nov, Chronic hepatitis C without hepatic coma B18.2 [facility] [address] [place] [address] Nov, Cannabis dependence with or without physiological dependence F12.[address] [address] Nov, Bipolar disorder F31.9 ; PTSD (post-traumatic stress disorder) F43.10 and Social phobia, generalized F40.11 [facility] [address] [place] [address] Nov, Alcohol use disorder, severe, 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 and Cannabis dependence with or without physiological dependence F12.20 [facility] [address] [place] [address] Nov, Alcohol use disorder, moderate, dependence F10.20 and Chronic obstructive pulmonary disease, unspecified COPD type J44.9 [facility] [address] [place] [address] 13 Oct, 2017 Alcohol use disorder, severe, 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 [facility] [address] [place] [address] 06 Oct, 2017 Alcohol use disorder, moderate, dependence F10.20 and Cannabis dependence with or without physiological dependence F12.20 [facility] [address] [place] [address] [place] [address] 41241- 6984 Sep, Bipolar disorder F31.9 [facility] [address] [place] [address] Sep, Alcohol use disorder, severe, 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 and Cannabis dependence with or without physiological dependence F12.20 [facility] [address] [place] [address] Sep, Alcohol use disorder, severe, 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 and Cannabis dependence with or without physiological dependence F12.20 [facility] [address] [place] [address] Sep, [place] [address] [address] Sep, COPD exacerbation J44.[address] [place] [address] 29849- 3141 Sep, [address] [place] [address] 84211- 9431 Sep, Bipolar disorder F31.9 ; PTSD (post-traumatic stress disorder) F43.10 ; Social phobia, generalized F40.11 ; Cigarette nicotine dependence without complication F17.210 and Alcohol use disorder, severe, 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 [address] Sep, Cannabis dependence with or without physiological dependence F12.20 and Alcohol use disorder, severe, 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 [facility] [address] [place] [address] Sep, Alcohol use disorder, severe, 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 and Cannabis dependence with or without physiological dependence F12.20 [facility] [address] [place] [address] Aug, Alcohol use disorder, moderate, dependence F10.20 ; Alcohol use disorder, severe , 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 and Cannabis dependence with or without physiological dependence F12.20 [facility] [address] [place] [address] Aug, Alcohol use disorder, moderate, dependence F10.20 ; Cannabis dependence with or without physiological dependence F12.20 and Alcohol use disorder, severe, 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 [facility] [address] [place] [address] Aug, Alcohol use disorder, severe, 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 and Cannabis dependence with or without physiological dependence F12.20 [facility] [address] [place] [address] Aug, Alcohol use disorder, moderate, dependence F10.20 and Cannabis dependence with or without physiological dependence F12.20 [facility] [address] [id number] 29 Jul, 2017 Alcohol use disorder, moderate, dependence F10.20 [facility] [address] 18 Jul, 2017 Alcohol use disorder, moderate, dependence F10.20 and Cannabis dependence with or without physiological dependence F12.20 [facility] [address] [place] [address] Jul, Alcohol use disorder, moderate, dependence F10.20 and Cannabis dependence with or without physiological dependence F12.20 [facility] [address] [place] [address] Jun, Alcohol use disorder, moderate, dependence F10.20 and Cannabis dependence with or without physiological dependence F12.20 [place] [address] [id number]- 682 Jun, [facility] [address] [place] [address] Jun, Alcohol use disorder, moderate, dependence F10.20 and Cannabis dependence with or without physiological dependence F12.[address] [address]- 1464 Jun, [place] [address] 176184- 9264 Jun, [place] [id number] 419 Jun, Bipolar disorder F31.9 ; PTSD (post-traumatic stress disorder) F43.10 ; Social phobia, generalized F40.11 and Alcohol use disorder, severe, 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 [facility] [address] [place] [address] 14 Jun, 2017 Alcohol use disorder, moderate, dependence F10.20 and Cannabis dependence with or without physiological dependence F12.[address] [address]- [address] 11 Jun, 2017 Chronic hepatitis C without hepatic coma B18.2 [address] [place] [address] 8125 Jun, [facility] [address] [place] [address] Jun, Cannabis dependence with or without physiological dependence F12.20 and Alcohol use disorder, moderate, dependence F10.20 [facility] [address] [place] [address] Jun, Alcohol use disorder, moderate, dependence F10.20 and Cannabis dependence with or without physiological dependence F12.20 [facility] [address] [place] [address] May, [place] [address] [address]45 May, [address] [address]248 May, Chronic hepatitis C without hepatic coma B18.[address] [address]88- 1496 May, Bipolar disorder F31.9 ; PTSD (post-traumatic stress disorder) F43.10 ; Alcohol use disorder, moderate, dependence F10.20 and Social phobia, generalized F40.11 [id number] [place] [address] 47445- 0731 May, Bipolar disorder F31.[address] 6[address]- 2620 Apr, Gastroesophageal reflux disease, esophagitis presence not specified K21.9 [place] [address] 71434- 6506 March, Chronic obstructive pulmonary disease, unspecified COPD type J44.9 and Cigarette nicotine dependence without complication F17.[address] [address]- [address] Jan, Bipolar disorder F31.9 ; Social phobia, generalized F40.11 and PTSD (post-traumatic stress disorder) F43.[address] 11146- 6104 Oct, Bipolar disorder F31.9 ; PTSD (post-traumatic stress disorder) F43.10 and Social phobia, generalized F40.11 [facility] [address] [address] 03 Oct, 2016 Encounter for immunization Z23 [place] [address] 42690- 4782 22 Sep, 2016 [place] [address] 38452- 9270 Sep, Abscess L02.91 [facility] [address] 67949 [address] 07 Sep, 2016 Abscess L02.91 and Chronic airway obstruction, not elsewhere classified J44.9 [place] [address] 42392- 7880 Jun, Bipolar disorder F31.9 ; PTSD (post-traumatic stress disorder) F43.10 and Social anxiety disorder F40.10 [place] [id number] [place] [address] 12791- 9300 Apr, [place] [address] 42433- 2511 March, Bipolar disorder F31.9 ; PTSD (post-traumatic stress disorder) F43.10 and Social anxiety disorder F40.10 [facility] [id number] [place] [address] Feb, Testicular pain N50.8 [place] [address] 58929- 2720 Jan, Bipolar disorder F31.9 [place] [address] 77534- 3504 Jan, Bipolar disorder F31.9 ; PTSD (post-traumatic stress disorder) F43.10 and Social anxiety disorder F40.10 [place] [address] 42123- 0642 Jan, [facility] [address] [place] [address] 43133- 3858 Jan, Bipolar I disorder, most recent episode (or current) depressed, moderate 296.52 ; PTSD (post-traumatic stress disorder) F43.10 and Social anxiety disorder F40.10 [place] [id number] [place] [address] 24310- 9092 Jan, Bipolar disorder F31.9 ; PTSD (post-traumatic stress disorder) F43.10 and Social anxiety disorder F40.10 [place] [id number] [place] [address] 35565- 6253 Jan, Bipolar I disorder, most recent episode (or current) depressed, moderate 296.52 and Nondependent tobacco use disorder 305.1 [place] [id number] [place] [address] 67837- 3834 Dec, Bipolar I disorder, most recent episode (or current) depressed, moderate 296.52 [place] [id number] [place] [address] 08121- 6556 Dec, Bipolar I disorder, most recent episode (or current) depressed, moderate 296.52 ; Impulse disorder, unspecified F63.9 and Conduct disorder, unspecified F91.9 [place] [address] [place] [address] 44014- 7619 Dec, [place] [id number] [place] [address] 73002- 3177 Nov, Bipolar disorder F31.9 [facility] [address] [place] [address] 91847- 9444 Nov, [place] [id number] [place] [address] 30063- 2766 Aug, [facility] [address] [address]- 3637 Aug, Generalized anxiety disorder F41.1 and Bipolar 1 disorder, mixed, partial remission F31.77 [facility] [address] [address]- 7525 Aug, [place] [id number] [place] [address] 67819- 9607 Aug, Encounter for immunization Z23 [place] [id number] [place] [address] 00947- 2085 Jul, Ankle pain, left 719.47 [facility] [id number] [place] [address] 65056- 8198 Jul, Bipolar I disorder, most recent episode (or current) depressed, moderate 296.52 and Generalized anxiety disorder 300.02 [place] [id number] [place] [address] 11351- 1701 Jun, Bipolar I disorder, most recent episode (or current) depressed, moderate 296.52 and Generalized anxiety disorder 300.02 [place] [id number] [place] [address] 58699- 8161 May, [place] [id number] [place] [address] 84661- 8146 May, Bipolar I disorder, most recent episode (or current) depressed, moderate 296.52 and Generalized anxiety disorder 300.02 [place] [address] [address]- 6265 Apr, [place] [id number] [place] [address] 03720- 4220 Apr, High risk medication use V58.69 [place] [id number] [place] [address] 66570- 3426 Apr, High risk medication use V58.69 [place] [id number] [place] [address] 01725- 5664 March, [place] [id number] [place] [address] 59980- 6578 March, High risk medication use V58.69 ; Bipolar 1 disorder, depressed, moderate 296.52 and Other specified cardiac dysrhythmias 427.89 [facility] [id number] [place] [address] 56694- 8328 March, [facility] [id number] [place] [address] 65355- 6781 Feb, [facility] [id number] [place] [address] 32584- 6056 Feb, [facility] [id number] [place] [address] 76508- 2024 Jan, [facility] [id number] [place] [address] 81234- 2968 Jan, [facility] [id number] [place] [address] 42104- 8394 Dec, [facility] [id number] [place] [address] 06677- 8038 Dec, [facility] [address] [place] [address] 82428- 0453 Dec, [facility] [address] [place] [address] 87703- 9191 Dec, [facility] [address] [place] [address]- 3397 Dec, [facility] [address] [place] [address] 03108- 0840 Dec, [facility] [address] [place] [address]- 6173 Dec, [facility] [id number] [place] [address] 05332- 2798 Dec, [facility] [address] [place] 1468 Dec, [facility] [id number] [place] [address] 30817- 7253 Dec, [facility] [address] [id number] [place] [address]- 9443 Nov, [facility] [place] [facility] [address] [id number] [place] [address]- 7316 Nov, [facility] [place] [facility] [address] [facility] [id number] [place] [address]- 3015 Nov, [facility] [place] [facility] [address] [id number] [place] [address]- 0408 Nov, [facility] [place] [facility] [address] [facility] [id number] [place] [address]- 1411 Nov, [facility] [place] [facility] [address] [facility] [id number] [place] [address]- 3288 Nov, [facility] [id number] [place] [address]- 8091 Oct, [facility] [place] [facility] [address] [id number] [place] [address]- 4370 Oct, [facility] [place] [facility] [address] [facility] [id number] [place] [address]- 4841 Oct, [facility] [place] [facility] [address] [facility] [id number] [place] [address]- 6197 Oct, [facility] [place] [facility] [address] [facility] [id number] [place] [address]- 5770 Oct, [facility] [place] [facility] [address] [facility] [id number] [place] [address]- 0250 Oct, [facility] [place] [facility] [address] [id number] [place] [address]- 8311 Oct, [facility] [place] [facility] [address] [facility] [id number] [place] 1637 Oct, [facility] [place] [facility] [address] [facility] [id number] [place] [address]- 7269 Sep, [facility] [place] [facility] [address] [id number] [place] [address]- 3092 Sep, [facility] [place] [facility] [address] [id number] [place] [address]- 7205 Sep, [facility] [place] [facility] [address] [id number] [place] [address]- 0095 Sep, [facility] [place] [facility] [address] [id number] [place] [address]- 6486 Sep, [facility] [place] [facility] [address] [id number] [place] [address]- 5463 Sep, [facility] [place] [facility] [address] [id number] [place] [address]- 8151 Sep, [facility] [place] [facility] [address] [id number] [place] [address]- 1429 Aug, [facility] [place] [facility] [address] [id number] [place] [address]- 7598 Aug, [facility] [place] [facility] [address] [id number] [place] [address]- 9517 Aug, [facility] [place] [facility] [address] [id number] [place] [address]- 4195 Aug, [facility] [place] [facility] [address] [id number] [place] [address]- 8642 Aug, [facility] [place] [facility] [address] [id number] [place] [address]- 1913 Aug, [facility] [place] [facility] [address] [id number] [place] [address]- 9238 Aug, [facility] [place] [facility] [address] [id number] [place] [address]- 3579 Aug, [facility] [place] [facility] [address] [id number] [place] [address]- 2866 Aug, [facility] [place] [facility] [address] [id number] [place] [address]- 9989 Aug, [facility] [place] [facility] [address] [id number] [place] [address]- 8021 Aug, [facility] [place] [facility] [address] [id number] [place] [address]- 7692 Aug, [facility] [place] [facility] [address] [id number] [place] [address]- 5467 Aug, [facility] [place] [facility] [address] [id number] [place] [address]- 9286 Aug, [facility] [place] [facility] [address] [id number] [place] [address]- 0532 Jul, [facility] [place] [facility] [address] [id number] [place] [address]- 8906 Jul, [facility] [place] [facility] [address] [id number] [place] [address]- 4256 Jul, [facility] [place] [facility] [address] [id number] [place] [address]- 3269 Jul, [facility] [place] [facility] [address] [id number] [place] [address] Jun, [facility] [place] [facility] [address] [id number] [place] [address] Jun, [facility] [place] [facility] [address] [id number] [place] [address] Jun, [facility] [place] [facility] [address] [id number] [place] [address] Jun, [facility] [place] [facility] [address] [id number] [place] [address] May, [facility] [place] [facility] [address] [id number] [place] [address] May, [facility] [place] [facility] [address] [id number] [place] [address] May, [facility] [place] [facility] [address] [id number] [place] [address] May, [facility] [place] [facility] [address] [id number] [place] [address] May, [facility] [place] [facility] [address] [id number] [place] [address] May, [facility] [place] [facility] [address] [id number] [place] [address] Apr, [facility] [place] [facility] [address] [id number] [place] [address] Apr, [facility] [place] [facility] [address] [id number] [place] [address] Apr, [facility] [place] [facility] [address] [id number] [place] [address] Apr, [facility] [place] [facility] [address] [id number] [place] [address] March, [facility] [place] [facility] [address] [id number] [place] [address] March, [facility] [place] [facility] [address] [id number] [place] [address] March, [facility] [place] [facility] [address] [id number] [place] [address] March, [facility] [place] [facility] [address] [id number] [place] [address] March, [facility] [place] [facility] [address] [id number] [place] [address] March, [facility] [place] [facility] [address] [id number] [place] [address] Feb, [facility] [place] [facility] [address] [id number] [place] [address] Feb, [facility] [place] [facility] [address] [id number] [place] [address] Feb, [facility] [place] [facility] [address] [id number] [place] [address] Feb, [facility] [place] [facility] [address] [id number] [place] [address] Dec, [facility] [place] [facility] [address] [id number] [place] [address] Dec, [facility] [place] [facility] [address] [id number] [place] [address] Dec, [facility] [place] [facility] [address] [id number] [place] [address] Dec, [facility] [place] [facility] [address] [id number] [place] [address] Nov, [facility] [place] [facility] [address] [id number] [place] [address] Nov, [facility] [place] [facility] [address] [id number] [place] [address] Nov, [facility] [place] [facility] [address] [id number] [place] [address] Nov, [facility] [place] [facility] [address] [id number] [place] [address] Oct, [facility] [place] [facility] [address] [id number] [place] [address] Oct, [facility] [place] [facility] [address] [id number] [place] [address] Oct, [facility] [place] [facility] [address] [id number] [place] [address] Oct, [facility] [place] [facility] [address] [id number] [place] [address] Sep, [facility] [place] [facility] [address] [id number] [place] [address] Sep, [facility] [place] [facility] [address] [id number] [place] [address] Aug, [facility] [address] [id number] [place] [address] Aug, [facility] [place] [facility] [address] [id number] [place] [address] Jul, [facility] [address] [id number] [place] [address] Jul, [facility] [address] [id number] [place] [address] May, [facility] [address] [id number] [place] [address] May, [facility] [address] [id number] [place] [address] May, [facility] [address] [id number] [place] [address] May, [facility] [address] [id number] [place] [address] Apr, [facility] [address] [id number] [place] [address] Apr, [facility] [address] [facility] [id number] [place] [address] Feb, [facility] [address] [id number] [place] [address] Jan, [facility] [place] [facility] [address] [id number] [place] [address] Dec, [facility] [place] [facility] [address] [id number] [place] [address] Nov, [facility] [place] [facility] [address] [id number] [place] [address] Nov, [facility] [place] [facility] [address] [id number] [place] [address] Nov, [facility] [place] [facility] [address] [id number] [place] [address] 17 Oct, 2012 [facility] [place] [facility] [address] [id number] [place] [address] 17 Oct, 2012 [facility] [place] [facility] [address] [id number] [place] [address]- [address] Oct, [facility] [place] [facility] [address] [id number] [place] [address]- [address] Oct, [facility] [place] [facility] [address] [id number] [place] [address]- [address] Oct, [facility] [place] [facility] [address] [id number] [place] [address] Sep, [facility] [place] [facility] [address] [facility] [id number] [place] [address]- [address] Sep, [facility] [place] [facility] [address] [id number] [place] [id number] Aug, [facility] [place] [facility] [address] [id number] [place] [address]- [address] Aug, [facility] [place] [facility] [address] [id number] [place] [address]- [address] Jul, [facility] [place] [facility] [address] [id number] [place] [address]- [address] Jun, [facility] [place] [facility] [address] [id number] [place] [address]- [address] Jun, [facility] [place] [facility] [address] [id number] [place] [address]- [address] Jun, [facility] [place] [facility] [address] [id number] [place] [address]- [address] Apr, [facility] [place] [facility] [address] [id number] [place] [address]- [address] March, [facility] [place] [facility] [address] [id number] [place] [address]- [address] Jan, [facility] [address] [id number] [address] Dec, [facility] [id number] [place] [address] Nov, [facility] [id number] [place] [address] Nov, [facility] [id number] [place] [address] Nov, [facility] [id number] [place] [address] Oct, [facility] [id number] [place] [address] Oct, [facility] [id number] [place] [address] Oct, [facility] [id number] [place] [address] Sep, [facility] [id number] [place] [address] Sep, [facility] [id number] [place] [address] May, [facility] [address] [id number] [address] Oct, IMMUNIZATIONS No Known Immunizations SOCIAL HISTORY Never Assessed REASON FOR VISIT ATS Brief PLAN OF CARE VITAL SIGNS MEDICATIONS Unknown Medications RESULTS No Results PROCEDURES Procedure Date Ordered Result Body Site Alcohol and/or drug services June 22, 2017 INSTRUCTIONS MEDICATIONS ADMINISTERED No Known Medications MEDICAL (GENERAL) HISTORY Type Description Date Medical History bipolar Medical History Social anxiety disorder Medical History Hepatitis C - diagnosed in 2005 Surgical History Meatotomy 2007 Hospitalization History Via [facility] [place] for slow heart rate 08/2015 Hospitalization History via [facility] [place] [facility] 12/2015
--- OUTSIDE RECORDS SUMMARY | 2018-03-14 10:54 | XMS REPORT ---
Author Author MARIEL PATEL [facility] Address [address] [place] [address] Care Team Providers Care Information Technology Director Name Role Phone MARIEL PATEL Unavailable PROBLEMS Type Condition ICD9-CM Code QLV53-CK Code Onset Dates Condition Status SNOMED Code Problem Alcohol abuse F10.10 Active 00380874 Problem Chronic obstructive pulmonary disease, unspecified COPD type J44.9 Active 49068004 Problem Alcohol use disorder, moderate, dependence F10.20 Active 627150623 Problem Bipolar disorder F31.9 Active 91146217 Problem PTSD (post-traumatic stress disorder) F43.10 Active 70327408 Problem Social phobia, generalized F40.11 Active 92629482 Problem COPD exacerbation J44.1 Active [id number] Problem Cannabis dependence with or without physiological dependence F12.20 Active 36572985 Problem Gastroesophageal reflux disease, esophagitis presence not specified K21.9 Active 129028835 Problem Cigarette nicotine dependence without complication F17.210 Active 87256568 Problem Chronic hepatitis C without hepatic coma B18.2 Active 467496033 Problem Alcohol use disorder, severe, 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 Active 05003735 ALLERGIES No Information ENCOUNTERS Encounter Location Date Diagnosis [facility] [id number], [place] [address] Apr, [facility] [address] [address] Apr, [facility] [id number] [place] [address]2861- 1412 March, [facility] [address] [place] [address] Feb, [facility] [id number], [place] [address] Feb, Chronic hepatitis C without hepatic coma B18.2 [facility] [address] [place] [address] Feb, [facility] [id number] [place] [address] 97785- 4579 Jan, [facility] [address] [address] Jan, [facility] [id number] [place] [address] 64405- 9655 Jan, Chronic hepatitis C without hepatic coma B18.2 and Encounter for immunization Z23 [facility] [id number] [place] [address] 88456- 4395 Jan, Chronic obstructive pulmonary disease, unspecified COPD type J44.9 and Bipolar disorder F31.9 [facility] [address] [place] [address] Jan, Alcohol use disorder, severe, 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 [facility] [address] [place] [address] 26 Dec, 2017 Alcohol use disorder, severe, 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 and Cannabis dependence with or without physiological dependence F12.20 [facility] [id number] [place] [address] 98545- 6983 15 Dec, 2017 [facility] [id number] [place] [address] 06542- 2696 14 Dec, 2017 Right upper quadrant pain R10.11 [facility] [address] [place] [address] 12 Dec, 2017 Alcohol use disorder, severe, 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 and Cannabis dependence with or without physiological dependence F12.20 [facility] [id number] [place] [address] 30889- 6436 08 Dec, 2017 Chronic hepatitis C without hepatic coma B18.2 [facility] [id number] [place] [address] 44097- 5215 06 Dec, 2017 Chronic hepatitis C without hepatic coma B18.2 [facility] [address] [place] [address] Nov, Alcohol use disorder, moderate, dependence F10.20 [facility] [address], [place] [address] Nov, Chronic hepatitis C without hepatic coma B18.2 [facility] [id number] [place] [address] 38098- 4725 Nov, [facility] [id number] [place] [address] 50372- 2095 Nov, Chronic hepatitis C without hepatic coma B18.2 [facility] [address] [place] [address] Nov, Cannabis dependence with or without physiological dependence F12.[address] [address] Nov, Bipolar disorder F31.9 ; PTSD (post-traumatic stress disorder) F43.10 and Social phobia, generalized F40.11 [facility] [address] [place] [address] Nov, Alcohol use disorder, severe, 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 and Cannabis dependence with or without physiological dependence F12.20 [facility] [address] [place] [address] Nov, Alcohol use disorder, moderate, dependence F10.20 and Chronic obstructive pulmonary disease, unspecified COPD type J44.9 [facility] [address] [place] [address] 13 Oct, 2017 Alcohol use disorder, severe, 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 [facility] [address] [place] [address] 06 Oct, 2017 Alcohol use disorder, moderate, dependence F10.20 and Cannabis dependence with or without physiological dependence F12.20 [facility] [address] [place] [id number] [place] [address]- 1918 Sep, Bipolar disorder F31.9 [facility] [address] [place] [address] Sep, Alcohol use disorder, severe, 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 and Cannabis dependence with or without physiological dependence F12.20 [facility] [address] [place] [address] Sep, Alcohol use disorder, severe, 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 and Cannabis dependence with or without physiological dependence F12.20 [facility] [address], [place] [address] Sep, [place] [address] [address] Sep, COPD exacerbation J44.1 [address] [place] [address]74- 8141 Sep, [address] [place] [address] 56884- 6291 Sep, Bipolar disorder F31.9 ; PTSD (post-traumatic stress disorder) F43.10 ; Social phobia, generalized F40.11 ; Cigarette nicotine dependence without complication F17.210 and Alcohol use disorder, severe, 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 [address] Sep, Cannabis dependence with or without physiological dependence F12.20 and Alcohol use disorder, severe, 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 [facility] [address] [place] [address] Sep, Alcohol use disorder, severe, 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 and Cannabis dependence with or without physiological dependence F12.20 [facility] [address] [place] [address] Aug, Alcohol use disorder, moderate, dependence F10.20 ; Alcohol use disorder, severe , 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 and Cannabis dependence with or without physiological dependence F12.20 [facility] [address] [place] [address] Aug, Alcohol use disorder, moderate, dependence F10.20 ; Cannabis dependence with or without physiological dependence F12.20 and Alcohol use disorder, severe, 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 [facility] [address] [place] [address] Aug, Alcohol use disorder, severe, 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 and Cannabis dependence with or without physiological dependence F12.20 [facility] [address] [place] [address] Aug, Alcohol use disorder, moderate, dependence F10.20 and Cannabis dependence with or without physiological dependence F12.20 [facility] [address] [id number] 29 Jul, 2017 Alcohol use disorder, moderate, dependence F10.20 [facility] [address] 18 Jul, 2017 Alcohol use disorder, moderate, dependence F10.20 and Cannabis dependence with or without physiological dependence F12.20 [facility] [address] [place] [address] Jul, Alcohol use disorder, moderate, dependence F10.20 and Cannabis dependence with or without physiological dependence F12.20 [facility] [address] [place] [address] Jun, Alcohol use disorder, moderate, dependence F10.20 and Cannabis dependence with or without physiological dependence F12.20 [place] [address] [phone] Jun, [facility] [address] [place] [address] Jun, Alcohol use disorder, moderate, dependence F10.20 and Cannabis dependence with or without physiological dependence F12.[address] [address]38 Jun, [place] [address] 886701- 2523 Jun, [place] [id number]- 069 Jun, Bipolar disorder F31.9 ; PTSD (post-traumatic stress disorder) F43.10 ; Social phobia, generalized F40.11 and Alcohol use disorder, severe, 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 [facility] [address] [place] [address] 14 Jun, 2017 Alcohol use disorder, moderate, dependence F10.20 and Cannabis dependence with or without physiological dependence F12.[address] [address]- 2879 11 Jun, 2017 Chronic hepatitis C without hepatic coma B18.2 [address] [place] [address] 97[address] Jun, [facility] [address] [place] [address] Jun, Cannabis dependence with or without physiological dependence F12.20 and Alcohol use disorder, moderate, dependence F10.20 [facility] [address] [place] [address] Jun, Alcohol use disorder, moderate, dependence F10.20 and Cannabis dependence with or without physiological dependence F12.20 [facility] [address] [place] [address] May, [place] [address] [address]0 May, [address] [address] May, Chronic hepatitis C without hepatic coma B18.[address] [address] 5[address] May, Bipolar disorder F31.9 ; PTSD (post-traumatic stress disorder) F43.10 ; Alcohol use disorder, moderate, dependence F10.20 and Social phobia, generalized F40.11 [id number] [place] [address] 45762- 2932 May, Bipolar disorder F31.[address] [address]- 7652 Apr, Gastroesophageal reflux disease, esophagitis presence not specified K21.9 [place] [address] [address] March, Chronic obstructive pulmonary disease, unspecified COPD type J44.9 and Cigarette nicotine dependence without complication F17.[address] [address]- 1748 Jan, Bipolar disorder F31.9 ; Social phobia, generalized F40.11 and PTSD (post-traumatic stress disorder) F43.[address] [address]- 6406 Oct, Bipolar disorder F31.9 ; PTSD (post-traumatic stress disorder) F43.10 and Social phobia, generalized F40.11 [facility] [address] [address] 03 Oct, 2016 Encounter for immunization Z23 [place] [address] [address]- 7946 22 Sep, 2016 [place] [address] 72[address]- 7447 Sep, Abscess L02.91 [facility] [address] [address] 07 Sep, 2016 Abscess L02.91 and Chronic airway obstruction, not elsewhere classified J44.9 [place] [address] 63352- 4741 Jun, Bipolar disorder F31.9 ; PTSD (post-traumatic stress disorder) F43.10 and Social anxiety disorder F40.10 [place] [id number] [place] [address] 61741- 3951 Apr, [place] [address] 53652- 0140 March, Bipolar disorder F31.9 ; PTSD (post-traumatic stress disorder) F43.10 and Social anxiety disorder F40.10 [facility] [id number] [place] [address] 35349 [address]4938 Feb, Testicular pain N50.8 [place] [address] 60834- 5328 Jan, Bipolar disorder F31.9 [place] [address] 18899- 5266 Jan, Bipolar disorder F31.9 ; PTSD (post-traumatic stress disorder) F43.10 and Social anxiety disorder F40.10 [place] [address] 68794- 6328 Jan, [facility] [address] [place] [address] 45998- 2798 Jan, Bipolar I disorder, most recent episode (or current) depressed, moderate 296.52 ; PTSD (post-traumatic stress disorder) F43.10 and Social anxiety disorder F40.10 [place] [id number] [place] [address] 87881- 9117 Jan, Bipolar disorder F31.9 ; PTSD (post-traumatic stress disorder) F43.10 and Social anxiety disorder F40.10 [place] [id number] [place] [address] 58989- 1869 Jan, Bipolar I disorder, most recent episode (or current) depressed, moderate 296.52 and Nondependent tobacco use disorder 305.1 [place] [id number] [place] [address] 45577- 9207 Dec, Bipolar I disorder, most recent episode (or current) depressed, moderate 296.52 [place] [id number] [place] [address] 68912- 1989 Dec, Bipolar I disorder, most recent episode (or current) depressed, moderate 296.52 ; Impulse disorder, unspecified F63.9 and Conduct disorder, unspecified F91.9 [place] [address] [place] [address] 34025- 9466 Dec, [place] [id number] [place] [address] 51489- 2203 Nov, Bipolar disorder F31.9 [facility] [address] [place] [address] 22128- 4648 Nov, [place] [id number] [place] [address] 98190- 6896 Aug, [facility] [address], [place] [address]- 6998 Aug, Generalized anxiety disorder F41.1 and Bipolar 1 disorder, mixed, partial remission F31.77 [facility] [address], [place] [address]- 7177 Aug, [place] [id number] [place] [address] 63629- 1276 Aug, Encounter for immunization Z23 [place] [id number] [place] [address] 20118- 1165 Jul, Ankle pain, left 719.47 [facility] [id number] [place] [address] 38066- 2055 Jul, Bipolar I disorder, most recent episode (or current) depressed, moderate 296.52 and Generalized anxiety disorder 300.02 [place] [id number] [place] [address] 02270- 1316 Jun, Bipolar I disorder, most recent episode (or current) depressed, moderate 296.52 and Generalized anxiety disorder 300.02 [place] [id number] [place] [address] 30679- 2367 May, [place] [id number] [place] [address] 49730- 2922 May, Bipolar I disorder, most recent episode (or current) depressed, moderate 296.52 and Generalized anxiety disorder 300.02 [place] [address], [place] [address]- 5134 Apr, [place] [id number] [place] [address] 81376- 7489 Apr, High risk medication use V58.69 [place] [id number] [place] [address] 15673- 7677 Apr, High risk medication use V58.69 [place] [id number] [place] [address] 81237- 8332 March, [place] [id number] [place] [address] 19847- 6902 March, High risk medication use V58.69 ; Bipolar 1 disorder, depressed, moderate 296.52 and Other specified cardiac dysrhythmias 427.89 [facility] [id number] [place] [address] 12575- 2367 March, [facility] [id number] [place] [address] 55361- 7167 Feb, [facility] [id number] [place] [address] 17635- 6775 Feb, [facility] [id number] [place] [address] 56508- 4058 Jan, [facility] [id number] [place] [address] 94788- 8669 Jan, [facility] [id number] [place] [address] 25199- 7274 Dec, [facility] [id number] [place] [address] 59675- 9787 Dec, [facility] [address] [place] [address] 07737- 3373 Dec, [facility] [address] [place] [address] 70703- 5201 Dec, [facility] [address], [place] [address]- 8557 Dec, [facility] [address] [place] [address] 60639- 7830 Dec, [facility] [address], [place] [address]- 4661 Dec, [facility] [id number] [place] [address] 97401- 6998 Dec, [facility] [address] 7649 Dec, [facility] [id number] [place] [address] 03709- 7426 Dec, [facility] [address] [id number] [place] [address]- 7497 Nov, [facility] [place] [facility] [address] [id number] [place] [address]- 9270 Nov, [facility] [place] [facility] [address] [facility] [id number] [place] [address]- 4109 Nov, [facility] [place] [facility] [address] [id number] [place] [address]- 1225 Nov, [facility] [place] [facility] [address] [facility] [id number] [place] [address]- 2034 Nov, [facility] [place] [facility] [address] [facility] [id number] [place] [address]- 5704 Nov, [facility] [id number] [place] [address]- 4343 Oct, [facility] [place] [facility] [address] [id number] [place] [address]- 2703 Oct, [facility] [place] [facility] [address] [facility] [id number] [place] [address]- 9308 Oct, [facility] [place] [facility] [address] [facility] [id number] [place] [address]- 7661 Oct, [facility] [place] [facility] [address] [facility] [id number] [place] [address]- 0896 Oct, [facility] [place] [facility] [address] [facility] [id number], [place] [address]- 8273 Oct, [facility] [place] [facility] [address] [id number] [place] [address]- 6666 Oct, [facility] [place] [facility] [address] [facility] [id number] [place] 7145 Oct, [facility] [place] [facility] [address] [facility] [id number] [place] [address]- 4414 Sep, [facility] [place] [facility] [address] [id number] [place] [address]- 1653 Sep, [facility] [place] [facility] [address] [id number] [place] [address]- 2522 Sep, [facility] [place] [facility] [address] [id number] [place] [address]- 4325 Sep, [facility] [place] [facility] [address] [id number] [place] [address]- 7052 Sep, [facility] [place] [facility] [address] [id number] [place] [address]- 4748 Sep, [facility] [place] [facility] [address] [id number] [place] [address]- 8664 Sep, [facility] [place] [facility] [address] [id number] [place] [address]- 9128 Aug, [facility] [place] [facility] [address] [id number] [place] [address]- 9913 Aug, [facility] [place] [facility] [address] [id number] [place] [address]- 1731 Aug, [facility] [place] [facility] [address] [id number] [place] [address]- 6004 Aug, [facility] [place] [facility] [address] [id number] [place] [address]- 9855 Aug, [facility] [place] [facility] [address] [id number] [place] [address]- 7445 Aug, [facility] [place] [facility] [address] [id number] [place] [address]- 4484 Aug, [facility] [place] [facility] [address] [id number] [place] [address]- 7553 Aug, [facility] [place] [facility] [address] [id number] [place] [address]- 4355 Aug, [facility] [place] [facility] [address] [id number] [place] [address]- 2895 Aug, [facility] [place] [facility] [address] [id number] [place] [address]- 1614 Aug, [facility] [place] [facility] [address] [id number] [place] [address]- 2605 Aug, [facility] [place] [facility] [address] [id number] [place] [address]- 6015 Aug, [facility] [place] [facility] [address] [id number] [place] [address]- 4027 Aug, [facility] [place] [facility] [address] [id number] [place] [address]- 8094 Jul, [facility] [place] [facility] [address] [id number] [place] [address]- 0669 Jul, [facility] [place] [facility] [address] [id number] [place] [address]- 9618 Jul, [facility] [place] [facility] [address] [id number] [place] [address]- 5976 Jul, [facility] [place] [facility] [address] [id number] [place] [address]- 8813 Jun, [facility] [place] [facility] [address] [id number] [place] [address]- 0521 Jun, [facility] [place] [facility] [address] [id number] [place] [address]- 7667 Jun, [facility] [place] [facility] [address] [id number] [place] [address]- 6594 Jun, [facility] [place] [facility] [address] [id number] [place] [address]- 4236 May, [facility] [place] [facility] [address] [id number] [place] [address]- 8426 May, [facility] [place] [facility] [address] [id number] [place] [address]- 0520 May, [facility] [place] [facility] [address] [id number] [place] [address]- 7689 May, [facility] [place] [facility] [address] [id number] [place] [address]- 6593 May, [facility] [place] [facility] [address] [id number] [place] [address]- 7541 May, [facility] [place] [facility] [address] [id number] [place] [address]- 6537 Apr, [facility] [place] [facility] [address] [id number] [place] [address]- 4559 Apr, [facility] [place] [facility] [address] [id number] [place] [address]- 2557 Apr, [facility] [place] [facility] [address] [id number] [place] [address]- 1305 Apr, [facility] [place] [facility] [address] [id number] [place] [address]- 1940 March, [facility] [place] [facility] [address] [id number] [place] [address]- 1060 March, [facility] [place] [facility] [address] [id number] [place] [address]- 7094 March, [facility] [place] [facility] [address] [id number] [place] [address]- 9798 March, [facility] [place] [facility] [address] [id number] [place] [address]- 8247 March, [facility] [place] [facility] [address] [id number] [place] [address] March, [facility] [place] [facility] [address] [id number] [place] [address] Feb, [facility] [place] [facility] [address] [id number] [place] [address] Feb, [facility] [place] [facility] [address] [id number] [id number] [address] Feb, [facility] [place] [facility] [address] [id number] [place] [address] Feb, [facility] [place] [facility] [address] [id number] [place] [address] Dec, [facility] [place] [facility] [address] [id number] [place] [address] Dec, [facility] [place] [facility] [address] [id number] [place] [address] Dec, [facility] [place] [facility] [address] [id number] [place] [address] Dec, [facility] [place] [facility] [address] [id number] [place] [address] Nov, [facility] [place] [facility] [address] [id number] [place] [address] Nov, [facility] [place] [facility] [address] [id number] [place] [address] Nov, [facility] [place] [facility] [address] [id number] [place] [address] Nov, [facility] [place] [facility] [address] [id number] [place] [address] Oct, [facility] [place] [facility] [address] [id number], [place] [address] Oct, [facility] [place] [facility] [address] [id number], [place] [address] Oct, [facility] [place] [facility] [address] [id number] [place] [address] Oct, [facility] [place] [facility] [address] [id number] [place] [address] Sep, [facility] [place] [facility] [address] [address] [id number] [place] [address] Sep, [facility] [place] [facility] [address] [id number], [place] [address] Aug, [facility] [address] [id number] [place] [address] Aug, [facility] [place] [facility] [address] [id number] [place] [address] Jul, [facility] [address] [id number] [place] [address] Jul, [facility] [address] [id number] [place] [address] May, [facility] [address] [id number] [place] [address] May, [facility] [address] [id number] [place] [address] May, [facility] [address] [id number] [place] [address] May, [facility] [address] [id number] [place] [address] Apr, [facility] [address] [id number] [place] [address] Apr, [facility] [address] [facility] [id number] [place] [address] Feb, [facility] [address] [id number] [place] [address] Jan, [facility] [place] [facility] [address] [id number], [place] [address] Dec, [facility] [place] [facility] [address] [id number] [place] [address] Nov, [facility] [place] [facility] [address] [id number] [place] [address] Nov, [facility] [place] [facility] [address] [id number], [place] [address] Nov, [facility] [place] [facility] [address] [id number] [place] [address] 17 Oct, 2012 [facility] [place] [facility] [address] [id number] [place] [address] 17 Oct, 2012 [facility] [place] [facility] [address] [id number] [place] [address] Oct, [facility] [place] [facility] [address] [id number] [place] [address] Oct, [facility] [place] [facility] [address] [id number] [place] [address] Oct, [facility] [place] [facility] [address] [id number] [place] [address] Sep, [facility] [place] [facility] [address] [facility] [id number] [place] [address] Sep, [facility] [place] [facility] [address] [id number] [place] [id number] Aug, [facility] [place] [facility] [address] [id number] [place] [address] Aug, [facility] [place] [facility] [address] [id number] [place] [address] Jul, [facility] [place] [facility] [address] [id number] [place] [address] Jun, [facility] [place] [facility] [address] [id number] [place] [address] Jun, [facility] [place] [facility] [address] [id number] [place] [address] Jun, [facility] [place] [facility] [address] [id number] [place] [address] Apr, [facility] [place] [facility] [address] [id number] [place] [address] March, [facility] [place] [facility] [address] [id number] [place] [address] Jan, [facility] [address] [id number], [place] [address] Dec, [facility] [address] [facility] [id number], [place] [address] Nov, [facility] [id number], [place] [address] Nov, [facility] [address] [facility] [id number], [place] [address] Nov, [facility] [id number], [place] [address] Oct, [facility] [id number], [place] [address] Oct, [facility] [id number], [place] [address] Oct, [facility] [id number], [place] [address] Sep, [facility] [id number], [place] [address] Sep, [facility] [id number], [place] [address] May, [facility] [address] [id number], [place] [address] Oct, IMMUNIZATIONS No Known Immunizations SOCIAL HISTORY Never Assessed REASON FOR VISIT SOCWK-IN PLAN OF CARE VITAL SIGNS MEDICATIONS Unknown Medications RESULTS No Results PROCEDURES No Known procedures INSTRUCTIONS MEDICATIONS ADMINISTERED No Known Medications MEDICAL (GENERAL) HISTORY Type Description Date Medical History bipolar Medical History Social anxiety disorder Medical History Hepatitis C - diagnosed in 2005 Surgical History Meatotomy 2007 Hospitalization History Via [facility] [place] for slow heart rate 08/2015 Hospitalization History via [facility] 12/2015
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
[2018-03-14] MEDS ORDERED: HYDROcodone/APAP 5 MG/325 MG (LORTAB) TAB PO ONE (11:00)
--- NOTE | 2018-03-14 11:48 | Diagnostic Imaging Report ---
EXAM: TESTICULAR/SCROTUM ULTRASOUND DATE: 03/14/2018. COMPARISON: 03/24/2016. INDICATION: 52-year-old male, bilateral testicular pain for two days, worsening. PROCEDURE: Two-dimensional grayscale , spectral Doppler and color Doppler ultrasound examination of the testes is performed. FINDINGS: Right testicle. The right testicle has normal contour and is without mass. The right testicle is hypervascular. The right testicle measures 4.9 cm x 2.8 cm x 3.4 cm. Left testicle: The left testicle has normal contour and is without mass. Blood flow to the left testicle appears to be at the upper margins of normal. The left testicle measures 4.3 cm x 3.0 cm x 3.2 cm. The right and left epididymis are hypervascular. There are small bilateral hydroceles. IMPRESSION: 1. Bilateral epididymitis with increased blood flow to the right testicle suggesting right-sided orchitis. The left testicle is borderline hypervascular. 2. No intratesticular mass. 3. Small bilateral hydroceles. Dictated by: Dictated on workstation # [id number]
[2018-03-14] MEDS ORDERED: cefTRIAXone INJECTION 2,000 MG in NS (IVPB) 100 ML IV ONE (12:00)
--- NOTE | 2018-03-14 12:13 | ED GU-Male ---
General Chief Complaint: -Male Stated Complaint: UTI,INFECTION,ANTIBIOTICS NOT WORKING Nursing Triage Note: pt presents to ed with bilateral testicular swelling. pt reports swelling since thursday. Pt reports was diagnosed with UTI last week. Source: patient Exam Limitations: no limitations History of Present Illness Date Seen by Provider: Mar 14, 2018 Time Seen by Provider: 12:08 Initial Comments This 52-year-old white male presents with dysuria and bilateral test particular swelling and pain. Patient had UTI treated last week by his urologist in [place]. The patient has had frequent urinary tract infections from a urethral stricture. Patient denies hematuria, flank pain, nausea or vomiting. Allergies and Home Medications Allergies Coded Allergies: Sulfa (Sulfonamide Antibiotics) (Unverified Allergy, Unknown, 06/09/08) Home Medications Albuterol Sulfate 1 Puff Puff, 2 PUFF IH Q4H Prescribed by: SANTIAGO MONGE on 03/07/182215 Albuterol Sulfate 2.5 Mg/3 Ml Vial.neb, 2.5 MG IH Q4H Prescribed by: SANTIAGO MONGE on 03/07/182215 Budesonide/Formoterol Fumarate 10.2 Gm Hfa.aer.ad, 2 PUFF IH BID, (Reported) Cefuroxime Axetil 250 Mg Tablet, 250 MG PO BID Prescribed by: MARKO LINARES on 01/15/181642 Ciprofloxacin HCl 500 Mg Tablet, 500 MG PO BID Prescribed by: SANTIAGO MONGE on 03/07/182133 Clindamycin HCl 300 Mg Capsule, 300 MG PO QID Prescribed by: SANTIAGO MONGE on 04/27/172029 Divalproex Sodium 500 Mg Tablet.dr, 1,000 MG PO BID, (Reported) Hyoscyamine Sulfate 0.125 Mg Tab.subl, 1-2 TAB SL Q4H Prescribed by: SANTIAGO MONGE on 03/07/182133 Mupirocin Calcium 15 Gm Cream..g., 15 GM TP BID Prescribed by: SANTIAGO MONGE on 04/27/172029 Quetiapine Fumarate 50 Mg Tablet, 50 MG PO HS, (Reported) Sertraline HCl 100 Mg Tablet, 100 MG PO DAILY, (Reported) Tamsulosin HCl 0.4 Mg Cap, 0.4 MG PO DAILY Prescribed by: SANTIAGO MONGE on 03/07/182133 Varenicline Tartrate 1 Each Tab.ds.pk, 1 EACH PO DAILY, (Reported) Patient Home Medication List Home Medication List Reviewed: Yes Review of Systems Constitutional: No fever EENTM: no symptoms reported Respiratory: No cough Cardiovascular: No chest pain Gastrointestinal: No abdominal pain, No nausea, No vomiting Genitourinary: burning, dysuria, frequency, other (bilateral testicular pain and swelling.) Musculoskeletal: no symptoms reported Skin: no symptoms reported Psychiatric/Neurological: No Symptoms Reported Endocrine: No Symptoms Reported Hematologic/Lymphatic: No Symptoms Reported Past Ixuclvm-Xnggiz-Qkwzlg Hx Past Med/Social Hx: Reviewed Nursing Past Med/Soc Hx Patient Social History Alcohol Use: Denies Use Number of Drinks Today: AA Alcohol Beverage of Choice: Beer Recreational Drug Use: No Smoking Status: Current Everyday Smoker Type Used: Cigarettes Recent Foreign Travel: No Contact w/Someone Who Travel: No Recent Infectious Disease Expo: No Recent Hopitalizations: No Physical Abuse: No Sexual Abuse: No Mistreated: No Fear: No Immunizations Up To Date Tetanus Booster (TDap): More than 5yrs Date of Pneumonia Vaccine: Sep 22, 2014 Date of Influenza Vaccine: Sep 30, 2015 Seasonal Allergies Seasonal Allergies: Yes Past Medical History Surgeries: Yes (TONSILLECTOMY, URETHRAL SURGERY , FINGER) Orthopedic, Tonsillectomy Respiratory: Yes Asthma, COPD, Emphysema Currently Using CPAP: No Currently Using BIPAP: No Cardiac: Yes (EPISODES OF BRADYCARDIA) Neurological: No Reproductive Disorders: No HIV/AIDS: No Genitourinary: Yes (recent uti) Gastrointestinal: Yes (HEP C) Hepatitis Musculoskeletal: Yes (BROKE BACK 2013) Endocrine: No Loss of Vision: Denies Hearing Impairment: Denies Cancer: No Psychosocial: Yes (insomnia) Sleep Difficulties, Anxiety, Bipolar Nursing Suicide Risk Score: 0 Integumentary: No Blood Disorders: No Adverse Reaction/Blood Tranf: No Family Medical History Reviewed Nursing Family Hx Diabetes mellitus 19 MOTHER FH: COPD (chronic obstructive pulmonary disease) 19 MOTHER FH: emphysema 19 FATHER FH: lung cancer 19 FATHER Physical Exam Vital Signs Vital Signs - First Documented 03/14/18 09:00 Temp 98.1 Pulse 82 Resp 20 B/P (MAP) 116/82 (93) Pulse Ox 98 Capillary Refill : Less Than 3 Seconds General Appearance: WD/WN, mild distress HEENT: normal ENT inspection Neck: normal inspection Cardiovascular: regular rate, rhythm Respiratory: lungs clear Gastrointestinal: normal bowel sounds, non tender Male: testicular tenderness (patient demonstrates bilateral inflammation of the scrotum and tenderness palpation. The testes appear swollen.) Back: normal inspection Extremities: normal range of motion, non-tender Neurologic/Psychiatric: no motor/sensory deficits, alert, normal mood/affect Skin: normal color, warm/dry Progress/Results/Core Measures Suspected Sepsis Recent Fever Within 48 Hours: No Infection Criteria Present: Documented Infection New/Unexplained Altered Menta: No Sepsis Screen: No Definite Risk SIRS Temperature:98.1 Pulse: 82 Respiratory Rate: 20 Blood Pressure 116 /82 Mean: 93 Results/Orders Lab Results Laboratory Tests Test 03/14/18 09:39 Range/Units Urine Color YELLOW Urine Clarity VERY CLOUDY H Urine pH 6 5-9 Urine Specific [place] 1.020 1.016-1.022 Urine Protein 2+ H NEGATIVE Urine Glucose (UA) NEGATIVE NEGATIVE Urine Ketones 1+ H NEGATIVE Urine Nitrite NEGATIVE NEGATIVE Urine Bilirubin NEGATIVE NEGATIVE Urine Urobilinogen NORMAL NORMAL MG/DL Urine Leukocyte Esterase 3+ H NEGATIVE Urine RBC (Auto) 3+ H NEGATIVE Urine RBC 5-10 H /HPF Urine WBC TNTC H /HPF Urine Squamous Epithelial Cells NONE /HPF Urine Crystals NONE /LPF Urine Bacteria TRACE /HPF Urine Casts NONE /LPF Urine Mucus SMALL H /LPF Urine Culture Indicated YES My Orders Orders - FELTON BARBOSA MD Ua Culture If Indicated (03/14/18 09:59) Urine Culture (03/14/18 09:39) Us Scrotum (Testicle) [id number] (03/14/18 10:50) Hydrocodone/Apap 5/325 Tablet (Lortab 5 (03/14/18 11:00) Ceftriaxone Injection (Rocephin Injectio (03/14/18 12:00) Saline Lock/Iv-Start (03/14/18 12:06) Medications Given in ED Current Medications Medications Dose Ordered Sig/Hanane Route Start Time Stop Time Status Last Admin Dose Admin Acetaminophen/ Hydrocodone Bitart 2 tab ONCE ONCE PO 03/14/18 11:00 03/14/18 11:01 DC 03/14/18 11:15 2 TAB Ceftriaxone Sodium 2000 mg/ Sodium Chloride 100 ml @ 200 mls/hr ONCE ONCE IV 03/14/18 12:00 4/15/18 12:29 03/14/18 12:05 200 MLS/HR Vital Signs/I&O 03/14/18 09:00 Temp 98.1 Pulse 82 Resp 20 B/P (MAP) 116/82 (93) Pulse Ox 98 Capillary Refill : Less Than 3 Seconds Blood Pressure Mean: 93 Progress Note : Time: 12:18 Progress Note The patient's urine confirmed a urinary tract infection. A culture has been initiated. Ultrasound of the scrotum demonstrates bilateral orchitis and epididymitis. The patient received 2 g Rocephin IV in the emergency department. Telephone consultation was undertaken with the patient's urology group in [place]. Dr. Underwood's partner recommended Keflex 500 mg 3 times a day for 2 weeks. Patient was given hydrocodone for pain. He is asked to call his urologist on Thursday for close follow-up. He was invited return the emergency Department for the problem or question. Departure Impression Primary Impression: Urinary tract infection Qualified Codes: N30.00 - Acute cystitis without hematuria Additional Impressions: Orchitis Epididymitis Disposition: HOME, SELF-CARE Condition: Improved Departure-Patient Inst. Decision time for Depature: 12:19 Referrals: MARIEL PATEL MD (PCP/Family) Primary Care Physician Patient Instructions: Epididymitis (DC) Add. Discharge Instructions: Keflex 500 mg 3 times a day for 2 weeks. Hydrocodone for pain. Follow-up with Dr. UNDERWOOD on Thursday. Return if any problems or questions. All discharge instructions reviewed with patient and/or family. Voiced understanding. FELTON BARBOSA MD Mar 14, 2018 12:13
[2018-03-14 12:37] VITALS: BP 103/69
== END 2018-03-14 12:37 | disposition home or self-care (01) ==
LOC: EDUNIT# 08:40 → ER 08:41
DX: N39.0 Urinary tract infection, site not specified (principal); N45.2 Orchitis; N45.1 Epididymitis; J43.9 Emphysema, unspecified; F41.9 Anxiety disorder, unspecified; F31.9 Bipolar disorder, unspecified; G47.00 Insomnia, unspecified; F17.210 Nicotine dependence, cigarettes, uncomplicated; Z87.19 Personal history of other diseases of the digestive system; Z90.89 Acquired absence of other organs; Z80.1 Family history of malignant neoplasm of trachea, bronchus and lung; Z88.2 Allergy status to sulfonamides
CPT/HCPCS: 76870; 81000; 87088; 96365

== ENCOUNTER 2020-03-16 08:24 | Emergency (ER) | payer BC, OTHER ==
[~2020-03-16] VITALS: Ht 175.2 cm; Wt 88.6 kg
[~2020-03-16 08:24] MED LIST changes: -ACLI400A2 IH; +ACLI400A3 IH; +QUET200T29 PO; -QUET200T57 PO; -TAMS0.4C98 PO; +TMSL.4C PO
[2020-03-16] MEDS ORDERED: KETOROLAC 30 MG/ML VIAL IVP ONE (09:00)
[2020-03-16 09:03] LABS: BASOPHILS % (AUTO) 0 % (0-10); EOSINOPHILS % (AUTO) 0 % (0-10); HEMATOCRIT 45 % (40-54); HEMOGLOBIN 15.4 G/DL (13.3-17.7); LYMPHOCYTES # (AUTO) 1.7 X 10^3 (1.0-4.0); LYMPHOCYTES % (AUTO) 9 % (12-44); MEAN CORPUSCULAR HEMOGLOBIN 31 PG (25-34); MEAN CORPUSCULAR HGB CONC 34 G/DL (32-36); MEAN CORPUSCULAR VOLUME 90 FL (80-99); MEAN PLATELET VOLUME 10.3 FL (7.4-10.4); MONOCYTES # (AUTO) 2.2 X 10^3 (0.0-1.0); MONOCYTES % (AUTO) 12 % (0-12); NEUTROPHILS # (AUTO) 14.3 X 10^3 (1.8-7.8); NEUTROPHILS % (AUTO) 78 % (42-75); PLATELET COUNT 142 10^3/uL (130-400); RED CELL DISTRIBUTION WIDTH 13.7 % (10.0-14.5); WHITE BLOOD COUNT 18.2 10^3/uL (4.3-11.0)
[2020-03-16 09:15] LABS: ALBUMIN 3.9 GM/DL (3.2-4.5); CHLORIDE 102 MMOL/L (98-107); POTASSIUM 4.2 MMOL/L (3.6-5.0); SODIUM 135 MMOL/L (135-145)
[2020-03-16 09:16] LABS: CALCIUM 8.7 MG/DL (8.5-10.1)
[2020-03-16 09:17] LABS: GLUCOSE 142 MG/DL (70-105); TOTAL PROTEIN 7.1 GM/DL (6.4-8.2)
[2020-03-16 09:18] LABS: CARBON DIOXIDE 23 MMOL/L (21-32)
[2020-03-16 09:19] LABS: BILIRUBIN,TOTAL 0.8 MG/DL (0.1-1.0)
[2020-03-16 09:21] LABS: ALKALINE PHOSPHATASE 46 U/L (40-136); CREATININE SERUM 0.86 MG/DL (0.60-1.30); GFR ESTIMATED > 60
[2020-03-16 09:22] LABS: BUN/CREATININE RATIO 12
[2020-03-16 09:24] LABS: ALANINE AMINOTRANSFERASE 15 U/L (0-55)
[2020-03-16 09:38] LABS: BAND NEUTROPHILS 5 %; BASOPHILS % (MANUAL) 0 %; EOSINOPHILS % (MANUAL) 2 %; LYMPHOCYTES % (MANUAL) 13 %; MONOCYTES % (MANUAL) 11 %; NEUTROPHILS % (MANUAL) 69 %; RBC MORPH NORMAL
[2020-03-16] MEDS ORDERED: LACTATED RINGERS 1,000 ML IV ONE (09:48)
[2020-03-16 09:53] LABS: BILIRUBIN,URINE NEGATIVE (NEGATIVE); CLARITY,URINE CLEAR; COLOR,URINE DARK YELLOW; GLUCOSE, URINE (UA) NEGATIVE (NEGATIVE); KETONES,URINE TRACE (NEGATIVE); LEUKOCYTE ESTERASE ,URINE 3+ (NEGATIVE); NITRITE,URINE NEGATIVE (NEGATIVE); PH,URINE 7.5 (5-9); PROTEIN,URINE TRACE (NEGATIVE)
[2020-03-16 10:00] LABS: BACTERIA,URINE FEW /HPF; SQUAMOUS EPITHELIAL CELL,UR 0-2 /HPF; WBC,URINE >100 /HPF
[2020-03-16] MEDS ORDERED: cefTRIAXone FOR IV USE 1,000 MG in WATER (STERILE) FOR INJECTION 10 ML IV ONE (10:00)
[2020-03-16 10:01] LABS: INR 1.2 (0.8-1.4); PROTHROMBIN TIME PATIENT 15.3 SEC (12.2-14.7)
--- NOTE | 2020-03-16 10:05 | NUR ---
LATIC ACID DRAW AND SENT TO LAB
--- NOTE | 2020-03-16 10:13 | Diagnostic Imaging Report ---
INDICATION: Testicular swelling. TIME OF EXAM: 9:55 AM Correlation is made with prior chest from 03/07/2018. FINDINGS: The heart size is normal. The pulmonary vascularity is unremarkable. The lungs are clear. No infiltrate, effusion or pneumothorax is detected. IMPRESSION: No acute cardiopulmonary process is detected. Dictated by: Dictated on workstation # [id number]
--- NOTE | 2020-03-16 10:19 | NUR ---
LAB HERE TO DRAW 2ND BLOOD CULTURE.
--- NOTE | 2020-03-16 10:25 | ED GU-Male ---
General Chief Complaint: General Problems/Pain Stated Complaint: BACK PAIN;SWOLLEN TESTICLE;FEVER Nursing Triage Note: AMB TO ED C/O LOW ABD PAIN AND BACK WITH TESTICLE PAIN FOR 3 WEEKS WAS SEEN AT [facility] 2 WEEKS AGO. HAD NEG TESTICLE SONO AND WAS STARTED ON DOXY REPORTS WAS BETTER AFTER A FEW DAYS YESTERDAY PAIN STARTED BACK. Source: patient, other ([facility] clinic) Exam Limitations: no limitations History of Present Illness Date Seen by Provider: Mar 16, 2020 Time Seen by Provider: 08:32 Initial Comments This 54-year-old woman presents to the emergency room with complaints of painful, erythematous, and swollen left testicle. He was seen for the same problem at [facility] on February 22. He was prescribed doxycycline which she completed. His last dose was taken about 4 days ago. He describes some difficulty urinating yesterday but he is urinating without difficulty today. He does have some pain with urination. He also complains of aching in his lower back. He denies any penile discharge. He denies any fevers. He is afebrile on presentation. He reports the doxycycline did improve his condition but symptoms worsened again after discontinuing. Allergies and Home Medications Allergies Coded Allergies: Sulfa (Sulfonamide Antibiotics) (Unverified Allergy, Unknown, 06/09/08) Home Medications Albuterol Sulfate 1 Puff Puff, 2 PUFF IH Q4H Prescribed by: SANTIAGO MONGE on 03/07/182215 Albuterol Sulfate 2.5 Mg/3 Ml Vial.neb, 2.5 MG IH Q4H Prescribed by: SANTIAGO MONGE on 03/07/182215 Budesonide/Formoterol Fumarate 10.2 Gm Hfa.aer.ad, 2 PUFF IH BID, (Reported) Cefuroxime Axetil 250 Mg Tablet, 250 MG PO BID Prescribed by: MARKO LINARES on 01/15/18 1643 Divalproex Sodium 500 Mg Tablet.dr, 1,000 MG PO BID, (Reported) Hyoscyamine Sulfate 0.125 Mg Tab.subl, 1-2 TAB SL Q4H Prescribed by: SANTIAGO MONGE on 03/07/18 213 Mupirocin Calcium 15 Gm Cream..g., 15 GM TP BID Prescribed by: SANTIAGO MONGE on 04/27/172029 Quetiapine Fumarate 50 Mg Tablet, 50 MG PO HS, (Reported) Sertraline HCl 100 Mg Tablet, 100 MG PO DAILY, (Reported) Tamsulosin HCl 0.4 Mg Cap, 0.4 MG PO DAILY Prescribed by: SANTIAGO MONGE on 03/07/182133 Varenicline Tartrate 1 Each Tab.ds.pk, 1 EACH PO DAILY, (Reported) Patient Home Medication List Home Medication List Reviewed: Yes Review of Systems Review of Systems Constitutional: no symptoms reported EENTM: no symptoms reported Respiratory: no symptoms reported Cardiovascular: no symptoms reported Gastrointestinal: no symptoms reported Genitourinary: see HPI Musculoskeletal: no symptoms reported Skin: no symptoms reported Psychiatric/Neurological: No Symptoms Reported Endocrine: No Symptoms Reported Past Ngrxwgf-Tottva-Njbcyh Hx Past Med/Social Hx: Reviewed Nursing Past Med/Soc Hx Patient Social History Alcohol Use: Occasionally Uses Number of Drinks Today: AA Alcohol Beverage of Choice: Beer Recreational Drug Use: No Drug of Choice: THC, + IV METH Smoking Status: Current Everyday Smoker Type Used: Cigarettes Recent Foreign Travel: No Contact w/Someone Who Travel: No Recent Infectious Disease Expo: No Recent Hopitalizations: No Immunizations Up To Date Tetanus Booster (TDap): More than 5yrs Date of Pneumonia Vaccine: Sep 22, 2014 Date of Influenza Vaccine: Sep 30, 2015 Seasonal Allergies Seasonal Allergies: Yes Past Medical History Surgeries: Yes (TONSILLECTOMY, URETHRAL SURGERY--MEATOTOMY , FINGER) Orthopedic, Tonsillectomy Respiratory: Yes Asthma, COPD, Emphysema Currently Using CPAP: No Currently Using BIPAP: No Cardiac: Yes (EPISODES OF BRADYCARDIA) Neurological: No Reproductive Disorders: No HIV/AIDS: No Genitourinary: Yes (history of UTI and epididymoorchitis) Gastrointestinal: Yes (HEP C) Hepatitis Musculoskeletal: Yes (BROKE BACK 2013) Chronic Back Pain Endocrine: No Loss of Vision: Denies Hearing Impairment: Denies Cancer: No Psychosocial: Yes (insomnia) Sleep Difficulties, Anxiety, Bipolar Integumentary: No Blood Disorders: No Adverse Reaction/Blood Tranf: No Family Medical History Reviewed Nursing Family Hx Diabetes mellitus 19 MOTHER FH: COPD (chronic obstructive pulmonary disease) 19 MOTHER FH: emphysema 19 FATHER FH: lung cancer 19 FATHER Physical Exam Vital Signs Vital Signs - First Documented 03/16/20 08:25 Temp 36.7 Pulse 95 Resp 18 B/P (MAP) 115/93 (100) Pulse Ox 99 O2 Delivery Room Air Capillary Refill : Less Than 3 Seconds Height, Weight, BMI Height: 5'11.00" Weight: 116lbs. oz. [id number]; 28.00 BMI Method:Stated General Appearance: WD/WN, mild distress HEENT: normal ENT inspection, pharynx normal Neck: normal inspection Cardiovascular: no edema, no murmur, tachycardia (slight) Respiratory: no respiratory distress, no accessory muscle use, wheezing Gastrointestinal: normal bowel sounds, soft, tenderness (generalized) Male: testicular tenderness (left testicle markedly enlarged and firm. Scrotum is erythematous, particularly on the left. There is a blanched appearance to the right side of the glans but this area is nontender. 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, no motor/sensory deficits, alert, normal mood/affect, oriented x 3 Skin: normal color, warm/dry Focused Exam Lactate Level 03/16/20 10:05: Lactic Acid Level 1.47 Lactic Acid Level Laboratory Tests Test 03/16/20 10:05 Lactic Acid Level 1.47 MMOL/L (0.50-2.00) Progress/Results/Core Measures Suspected Sepsis Recent Fever Within 48 Hours: No Infection Criteria Present: Documented Infection New/Unexplained Altered Menta: No Sepsis Screen: No Definite Risk SIRS Temperature: Pulse: 95 Respiratory Rate: 18 Laboratory Tests 03/16/20 08:53: White Blood Count 18.2H Blood Pressure 115 /93 Mean: 100 03/16/20 10:05: Lactic Acid Level 1.47 Laboratory Tests 03/16/20 08:53: Creatinine 0.86, INR Comment 1.2, Platelet Count 142, Total Bilirubin 0.8 Results/Orders Lab Results Laboratory Tests Test 03/16/20 08:53 03/16/20 09:47 03/16/20 10:05 Range/Units White Blood Count 18.2 H 4.3-11.0 10^3/uL Red Blood Count 5.01 4.35-5.85 10^6/uL Hemoglobin 15.4 13.3-17.7 G/DL Hematocrit 45 40-54 % Mean Corpuscular Volume 90 80-99 FL Mean Corpuscular Hemoglobin 31 25-34 PG Mean Corpuscular Hemoglobin Concent 34 32-36 G/DL Red Cell Distribution Width 13.7 10.0-14.5 % Platelet Count 142 130-400 10^3/uL Mean Platelet Volume 10.3 7.4-10.4 FL Neutrophils (%) (Auto) 78 H 42-75 % Lymphocytes (%) (Auto) 9 L 12-44 % Monocytes (%) (Auto) 12 0-12 % Eosinophils (%) (Auto) 0 0-10 % Basophils (%) (Auto) 0 0-10 % Neutrophils # (Auto) 14.3 H 1.8-7.8 X 10^3 Lymphocytes # (Auto) 1.7 1.0-4.0 X 10^3 Monocytes # (Auto) 2.2 H 0.0-1.0 X 10^3 Eosinophils # (Auto) 0.0 0.0-0.3 10^3/uL Basophils # (Auto) 0.0 0.0-0.1 10^3/uL Neutrophils % (Manual) 69 % Lymphocytes % (Manual) 13 % Monocytes % (Manual) 11 % Eosinophils % (Manual) 2 % Basophils % (Manual) 0 % Band Neutrophils 5 % Blood Morphology Comment NORMAL Prothrombin Time 15.3 H 12.2-14.7 SEC INR Comment 1.2 0.8-1.4 Activated Partial Thromboplast Time 37 H 24-35 SEC Sodium Level 135 135-145 MMOL/L Potassium Level 4.2 3.6-5.0 MMOL/L Chloride Level 102 98-107 MMOL/L Carbon Dioxide Level 23 21-32 MMOL/L Anion Gap 10 5-14 MMOL/L Blood Urea Nitrogen 10 7-18 MG/DL Creatinine 0.86 0.60-1.30 MG/DL Estimat Glomerular Filtration Rate > 60 BUN/Creatinine Ratio 12 Glucose Level 142 H 70-105 MG/DL Calcium Level 8.7 8.5-10.1 MG/DL Corrected Calcium 8.8 8.5-10.1 MG/DL Total Bilirubin 0.8 0.1-1.0 MG/DL Aspartate Amino Transf (AST/SGOT) 17 5-34 U/L Alanine Aminotransferase (ALT/SGPT) 15 0-55 U/L Alkaline Phosphatase 46 40-136 U/L C-Reactive Protein High Sensitivity 6.61 H 0.00-0.50 MG/DL Total Protein 7.1 6.4-8.2 GM/DL Albumin 3.9 3.2-4.5 GM/DL Urine Color DARK YELLOW Urine Clarity CLEAR Urine pH 7.5 5-9 Urine Specific [place] 1.020 1.016-1.022 Urine Protein TRACE H NEGATIVE Urine Glucose (UA) NEGATIVE NEGATIVE Urine Ketones TRACE H NEGATIVE Urine Nitrite NEGATIVE NEGATIVE Urine Bilirubin NEGATIVE NEGATIVE Urine Urobilinogen 0.2 < = 1.0 MG/DL Urine Leukocyte Esterase 3+ H NEGATIVE Urine RBC (Auto) 1+ H NEGATIVE Urine RBC 2-5 H /HPF Urine WBC >100 H /HPF Urine Squamous Epithelial Cells 0-2 /HPF Urine Crystals NONE /LPF Urine Bacteria FEW H /HPF Urine Casts NONE /LPF Urine Mucus NEGATIVE /LPF Urine Culture Indicated YES Lactic Acid Level 1.47 0.50-2.00 MMOL/L My Orders Orders - RJ WYATT MD Cbc With Automated Diff (03/16/20 08:32) Comprehensive Metabolic Panel (03/16/20 08:32) Hs C Reactive Protein (03/16/20 08:32) Ua Culture If Indicated (03/16/20 08:32) Ed Iv/Invasive Line Start (03/16/20 08:32) Ketorolac Injection (Toradol Injection) (03/16/20 09:00) Us Scrotum (Testicle) [id number] (03/16/20 08:54) Manual Differential (03/16/20 08:53) Lactated Ringers (Lr 1000 Ml Iv Solution (03/16/20 09:48) Blood Culture (03/16/20 09:48) Protime With Inr (03/16/20 09:48) Partial Thromboplastin Time (03/16/20 09:48) Chest 1 View, Ap/Pa Only (03/16/20 09:48) Vital Signs Adult Sepsis Patie Q15M (03/16/20 09:48) O2 (03/16/20 09:48) Remove Rings In Anticipation O (03/16/20 09:48) Lactic Acid Analyzer (03/16/20 09:48) Ceftriaxone For Iv Use (Rocephin For I (03/16/20 10:00) Urine Culture (03/16/20 09:47) Chlamydia Trachomatis Urine (4/17/20 10:09) Neis Stu Dna Urine Test (03/16/20 10:09) Medications Given in ED Current Medications Medications Dose Ordered Sig/Hanane Route Start Time Stop Time Status Last Admin Dose Admin Ceftriaxone Sodium 1000 mg/ Sterile Water 10 ml @ 200 mls/hr ONCE ONCE IV 03/16/20 10:00 03/16/20 10:02 DC 03/16/20 10:31 200 MLS/HR Ketorolac Tromethamine 15 mg ONCE ONCE IVP 03/16/20 09:00 03/16/20 09:01 DC 03/16/20 08:59 15 MG Lactated Ringer's 1,000 ml @ 0 mls/hr Q0M ONCE IV 03/16/20 09:48 03/16/20 09:51 DC 03/16/20 10:31 1,000 MLS/HR Vital Signs/I&O 03/16/20 08:25 Temp 36.7 Pulse 95 Resp 18 B/P (MAP) 115/93 (100) Pulse Ox 99 O2 Delivery Room Air Capillary Refill : Less Than 3 Seconds Blood Pressure Mean: 100 Progress Note #1: Time: 10:18 Progress Note During workup patient was found to have a significantly elevated WBC and CRP. Because these lab values are in context of suspected infection and elevated heart rate, the septic workup was pursued. Patient is being treated with IV fl uids, Rocephin, and Toradol at this time. Ultrasound is pending. I did discuss his case with [facility]. He was seen there on the . UA demonstrated trace blood but was otherwise unremarkable. A gonorrhea and chlamydia screening was sent to stay but results are not yet available. A scrotal ultrasound was done at [facility] which showed a normal right testicle. Left testicle was heterogeneous and enlarged with hypervascularity. There was suggestion of epididymoorchitis. There is also incidentally a 3 mm right cyst. Patient was prescribed doxycycline. Progress Note #2: Time: 11:32 Progress Note Repeat ultrasound was performed here in the emergency room. It also showed epididymoorchitis. Rocephin was given. Patient was feeling better after Toradol and fluids. We discussed treatment strategy. I would've liked to have prescribed a fluoroquinolone but patient is on numerous psychiatric medications and I'm concerned about possible interactions. As an alternative I am prescribing Augmentin. Case was discussed with Iván Pedraza at [facility] who will help arrange follow-up. Diagnostic Imaging Diagonstic Imaging: Xray Plain Films/CT/US/NM/MRI: chest Comments Chest x-ray viewed by me and report reviewed. See report below: NAME: NANI PERALTA [facility] REC#: [id number] PT STATUS: REG ER : 1965 PHYSICIAN: RJ WYATT MD ADMIT DATE: 03/16/20/ER Draft Date of Exam:03/16/20 CHEST 1 VIEW, AP/PA ONLY INDICATION: Testicular swelling. TIME OF EXAM: 9:55 AM Correlation is made with prior chest from 03/07/2018. FINDINGS: The heart size is normal. The pulmonary vascularity is unremarkable. The lungs are clear. No infiltrate, effusion or pneumothorax is detected. IMPRESSION: No acute cardiopulmonary process is detected. Dictated on workstation # [id number] Dict: 03/16/20 1011 Trans: 03/16/20 1012 [id number] Interpreted by: RUDDY MONSALVE MD Diagonstic Imaging: Ultrasound Plain Films/CT/US/NM/MRI: other (scrotum) Comments Scrotum ultrasound discussed with the telephone technician and report reviewed. See report below: NAME: NANI PERALTA [facility] REC#: [id number] PT STATUS: REG ER : 1965 PHYSICIAN: RJ WYATT MD ADMIT DATE: 03/16/20/ER Draft Date of Exam:03/16/20 US SCROTUM (Testicle) [id number] PROCEDURE: US Scrotum. TECHNIQUE: Multiple real-time grayscale images were obtained over the scrotum in various projections bilaterally. INDICATION: Scrotal pain. COMPARISON: Comparison is made to study of 03/14/2018. FINDINGS: Right and left testes are symmetric measuring 5.1 x 2.0 x 2.9 cm on the right and 5.2 x 2.4 x 3.4 cm on the left. There is blood flow to both testes. There is increased flow on the left. Left epididymis is mildly prominent as well. There is no significant hydrocele or varicocele. A discrete mass is not identified. IMPRESSION: Increased flow to the left testis and epididymis is suggestive of left epididymal orchitis. Clinical correlation is recommended. Dictated on workstation # [id number] Dict: 03/16/20 1117 Trans: 03/16/20 1122 [id number] [id number] Interpreted by: ZAN HUNT MD Departure Impression Primary Impression: Epididymo-orchitis without abscess Disposition: HOME, SELF-CARE Condition: Improved Departure-Patient Inst. Decision time for Depature: 11:26 Referrals: MARIEL PATEL MD (PCP/Family) Primary Care Physician Patient Instructions: Epididymitis (DC) Add. Discharge Instructions: Drink plenty of clear liquids. Complete your antibiotics as prescribed. For pain take ibuprofen up to 600 mg every 6 hours as needed. Add Tylenol (acetaminophen) up to 1000 mg every 6 hours as needed for additional pain relief. Follow-up at the [facility] clinic on Thursday to review urine culture results and for repeat exam. They should call you for an appointment time. Return to the emergency room if you have any worsening of symptoms in the meantime. All discharge instructions reviewed with patient and/or family. Voiced understanding. Scripts Amoxicillin/Potassium Clav (Augmentin 875-125 Tablet) 1 Each Tablet 1 EACH PO BID, #20 TAB 0 Refills Prov: RJ WYATT MD 03/16/20 Copy Copies To 1: IVÁN PEDRAZA JOSHUA T MD Mar 16, 2020 10:24
--- NOTE | 2020-03-16 10:49 | NUR ---
KRISTAO CALLED AND STATES THEY WILL BE OVER.
--- NOTE | 2020-03-16 11:22 | Diagnostic Imaging Report ---
PROCEDURE: US Scrotum. TECHNIQUE: Multiple real-time grayscale images were obtained over the scrotum in various projections bilaterally. INDICATION: Scrotal pain. COMPARISON: Comparison is made to study of 03/14/2018. FINDINGS: Right and left testes are symmetric measuring 5.1 x 2.0 x 2.9 cm on the right and 5.2 x 2.4 x 3.4 cm on the left. There is blood flow to both testes. There is increased flow on the left. Left epididymis is mildly prominent as well. There is no significant hydrocele or varicocele. A discrete mass is not identified. IMPRESSION: Increased flow to the left testis and epididymis is suggestive of left epididymal orchitis. Clinical correlation is recommended. Dictated by: Dictated on workstation # [id number]
[2020-03-16] MEDS ORDERED: AMOX-358 PO (11:30)
[2020-03-16 11:48] VITALS: BP 106/82
== END 2020-03-16 11:48 | disposition home or self-care (01) ==
LOC: EDUNIT# 08:24 → ER 08:26
DX: N45.3 Epididymo-orchitis (principal); J43.9 Emphysema, unspecified; F41.9 Anxiety disorder, unspecified; F31.9 Bipolar disorder, unspecified; F17.210 Nicotine dependence, cigarettes, uncomplicated; Z88.2 Allergy status to sulfonamides; Z80.0 Family history of malignant neoplasm of digestive organs
CPT/HCPCS: 36415; 71045; 76870; 80053; 81000; 83605; 85007; 85027; 85610; 85730; 86141; 87040; 87077; 87088; 87491; 87591

== ENCOUNTER 2021-06-05 03:08 | Inpatient (IN) | payer BC ==
[~2021-06-05] VITALS: Ht 177.8 cm; Wt 73.0 kg
[~2021-06-05 03:08] MED LIST changes: -AMIT10TA6 PO; +AMOX-358 PO; +AMT10T PO; -CLIN300C11 PO; +CLIN300C12 PO; +SERT-414 PO; -SERT100T8 PO
[2021-06-05] MEDS ORDERED: fentaNYL INJ 100 MCG/2 ML AMP IVP STA (03:38)
[2021-06-05 03:45] LABS: BILIRUBIN,URINE NEGATIVE (NEGATIVE); CLARITY,URINE CLOUDY; COLOR,URINE YELLOW; GLUCOSE, URINE (UA) NEGATIVE (NEGATIVE); KETONES,URINE TRACE (NEGATIVE); LEUKOCYTE ESTERASE ,URINE 2+ (NEGATIVE); NITRITE,URINE POSITIVE (NEGATIVE); PH,URINE 7.5 (5-9); PROTEIN,URINE 1+ (NEGATIVE)
[2021-06-05] MEDS ORDERED: NS IV 1000 ML 1,000 ML IV ONE (03:45)
--- NOTE | 2021-06-05 03:50 | ED GU-Male ---
General Chief Complaint: Abdominal/GI Problems Stated Complaint: RT LOWER ABD PAIN Nursing Triage Note: pt ambulatory into ER with complaint of Abdominal Pain / Scroatum Pain x4 months. states that patient has been dealing with epididimitis for the last 4 months and it just doesn't seem to be going away. Pain at a 10/10. Source: patient, family Exam Limitations: no limitations History of Present Illness Date Seen by Provider: Jun 05, 2021 Time Seen by Provider: 03:25 Initial Comments Here with report of left testicular pain, lower abdominal pain, left flank pain that is intractable. Has had history of 4 months of epididymitis. He has been treated with clindamycin for at least 90 days and he did have some improvement for a few weeks and then pain started returning. States the pain now is worse than it ever been is branching out new areas of the abdomen. Patient was an alcoholic but quit drinking a few weeks ago when there was concerns about cirrhosis of the liver found on ultrasound. Does complain of left testicular swelling and pain but states it is not nearly as bad as it has been with respect to swelling. He has had ultrasound which showed no masses but that there was concerns for epididymitis. Denies fever chills. Denies nausea or vomiting. Timing/Duration: yesterday, getting worse Severity/Quality: severe, aching Location: scrotal Radiation: suprapubic, left flank Activities at Onset: none Modifying Factors: Worsens With Movement Associated Symptoms: dysuria; No fever/chills, No loss of bladder control; lower back pain; No nausea/vomiting Allergies and Home Medications Allergies Coded Allergies: Sulfa (Sulfonamide Antibiotics) (Unverified Allergy, Unknown, 06/09/08) Home Medications Albuterol Sulfate 1 Puff Puff, 2 PUFF IH Q4H PRN for SHORTNESS OF BREATH, (Reported) Last Action: Reviewed Divalproex Sodium 500 Mg Tablet.dr, 500 MG PO BID, (Reported) Last Action: Continued Fluticasone/Salmeterol 12 Gm Hfa.aer.ad, 2 PUFF INH BID, (Reported) Last Action: Converted Folic Acid 1 Mg Tablet, 1 MG PO DAILY, (Reported) Last Action: Continued Methotrexate Sodium 2.5 Mg Tablet, 20 MG PO THURSDAY, (Reported) TAKES 8 (2.5MG) TABLETS Last Action: Reviewed Quetiapine Fumarate 100 Mg Tablet, 100 MG PO HS, (Reported) Last Action: Continued Sertraline HCl 100 Mg Tablet, 100 MG PO HS, (Reported) Last Action: Continued Trazodone HCl 100 Mg Tablet, 100 MG PO HS, (Reported) Last Action: Reviewed Patient Home Medication List Home Medication List Reviewed: Yes Review of Systems Review of Systems Constitutional: see HPI EENTM: see HPI Respiratory: No cough, No short of breath Gastrointestinal: abdominal pain; No diarrhea Genitourinary: flank pain, pain Musculoskeletal: see HPI, back pain; No neck pain Skin: no symptoms reported All Other Systemes Reviewed Negative Unless Noted: Yes Past Wdlccnn-Vhfglh-Dwabvw Hx Patient Social History Tobacco Use?: Yes Tobacco type used: Cigarettes Smoking Status: Current Everyday Smoker Use of E-Cig and/or Vaping dev: No Substance use?: Yes Substance type: Marijuana Substance frequency: Couple times a week Alcohol Use?: No Immunizations Up To Date Tetanus Booster (TDap): More than 5yrs Second COVID19 Vaccination Manuel: 02/13/21 COVID19 Vaccine Adventure Therapist: Alyssa Seasonal Allergies Seasonal Allergies: Yes Past Medical History Surgeries: Yes (TONSILLECTOMY, URETHRAL SURGERY--MEATOTOMY , FINGER) Orthopedic, Tonsillectomy Respiratory: Yes Asthma, COPD, Emphysema Currently Using CPAP: No Currently Using BIPAP: No Cardiac: Yes (EPISODES OF BRADYCARDIA) Neurological: No Reproductive Disorders: No HIV/AIDS: No Genitourinary: Yes (history of UTI and epididymoorchitis) Gastrointestinal: Yes (HEP C) Hepatitis Musculoskeletal: Yes (BROKE BACK 2013) Chronic Back Pain Endocrine: No Loss of Vision: Denies Hearing Impairment: Denies Cancer: No Psychosocial: Yes (insomnia) Sleep Difficulties, Anxiety, Bipolar Integumentary: No Blood Disorders: No Adverse Reaction/Blood Tranf: No Family Medical History Reviewed Nursing Family Hx Diabetes mellitus 19 MOTHER FH: COPD (chronic obstructive pulmonary disease) 19 MOTHER FH: emphysema 19 FATHER FH: lung cancer 19 FATHER Physical Exam Vital Signs Vital Signs - First Documented 06/05/21 03:19 Temp 37.3 Pulse 88 Resp 20 B/P (MAP) 122/88 (99) Pulse Ox 98 O2 Delivery Room Air Capillary Refill : Less Than 3 Seconds Height, Weight, BMI Height: 5'11.00" Weight: 116lbs. oz. 52.270086eg; 23.00 BMI Method:Stated General Appearance: WD/WN, no apparent distress Neck: full range of motion, supple Cardiovascular: regular rate, rhythm, no murmur Respiratory: lungs clear, normal breath sounds Gastrointestinal: non tender, soft Male: testicular tenderness (Left sided), other (Left testicle swollen and somewhat firm. Otherwise genitalia are normal. Does have left inguinal pain as well. Suprapubic pain on palpation noted.) Back: normal inspection, no CVA tenderness, no vertebral tenderness Extremities: non-tender, normal inspection Neurologic/Psychiatric: alert, oriented x 3 Skin: normal color, warm/dry Focused Exam Lactate Level 06/05/21 04:21: Lactic Acid Level 1.45 Lactic Acid Level Laboratory Tests Test 06/05/21 04:21 Lactic Acid Level 1.45 MMOL/L (0.50-2.00) Progress/Results/Core Measures Suspected Sepsis SIRS Temperature: Pulse: 88 Respiratory Rate: 20 Laboratory Tests 06/05/21 03:45: White Blood Count 12.3H Blood Pressure 122 /88 Mean: 99 06/05/21 04:21: Lactic Acid Level 1.45 Laboratory Tests 06/05/21 03:45: Creatinine 0.84, Platelet Count 140, Total Bilirubin 0.7 Results/Orders Lab Results Laboratory Tests Test 06/05/21 03:20 06/05/21 03:45 06/05/21 04:21 Range/Units Urine Color YELLOW Urine Clarity CLOUDY Urine pH 7.5 5-9 Urine Specific [place] 1.020 1.016-1.022 Urine Protein 1+ H NEGATIVE Urine Glucose (UA) NEGATIVE NEGATIVE Urine Ketones TRACE H NEGATIVE Urine Nitrite POSITIVE H NEGATIVE Urine Bilirubin NEGATIVE NEGATIVE Urine Urobilinogen 1.0 < = 1.0 MG/DL Urine Leukocyte Esterase 2+ H NEGATIVE Urine RBC (Auto) 2+ H NEGATIVE Urine RBC 10-25 H /HPF Urine WBC TNTC H /HPF Urine Squamous Epithelial Cells 0-2 /HPF Urine Crystals NONE /LPF Urine Bacteria LARGE H /HPF Urine Casts NONE /LPF Urine Mucus NEGATIVE /LPF Urine Culture Indicated YES White Blood Count 12.3 H 4.3-11.0 10^3/uL Red Blood Count 4.66 4.30-5.52 10^6/uL Hemoglobin 14.2 13.3-17.7 g/dL Hematocrit 43 40-54 % Mean Corpuscular Volume 92 80-99 fL Mean Corpuscular Hemoglobin 31 25-34 pg Mean Corpuscular Hemoglobin Concent 33 32-36 g/dL Red Cell Distribution Width 13.6 10.0-14.5 % Platelet Count 140 130-400 10^3/uL Mean Platelet Volume 9.7 9.0-12.2 fL Immature Granulocyte % (Auto) 0 % Neutrophils (%) (Auto) 82 H 42-75 % Lymphocytes (%) (Auto) 6 L 12-44 % Monocytes (%) (Auto) 11 0-12 % Eosinophils (%) (Auto) 0 0-10 % Basophils (%) (Auto) 0 0-10 % Neutrophils # (Auto) 10.1 H 1.8-7.8 10^3/uL Lymphocytes # (Auto) 0.8 L 1.0-4.0 10^3/uL Monocytes # (Auto) 1.3 H 0.0-1.0 10^3/uL Eosinophils # (Auto) 0.0 0.0-0.3 10^3/uL Basophils # (Auto) 0.0 0.0-0.1 10^3/uL Immature Granulocyte # (Auto) 0.0 0.0-0.1 10^3/uL Neutrophils % (Manual) 88 % Lymphocytes % (Manual) 8 % Monocytes % (Manual) 3 % Band Neutrophils 1 % Sodium Level 138 135-145 MMOL/L Potassium Level 4.1 3.6-5.0 MMOL/L Chloride Level 103 98-107 MMOL/L Carbon Dioxide Level 26 21-32 MMOL/L Anion Gap 9 5-14 MMOL/L Blood Urea Nitrogen 9 7-18 MG/DL Creatinine 0.84 0.60-1.30 MG/DL Estimat Glomerular Filtration Rate > 60 BUN/Creatinine Ratio 11 Glucose Level 129 H 70-105 MG/DL Calcium Level 8.4 L 8.5-10.1 MG/DL Corrected Calcium 8.5 8.5-10.1 MG/DL Total Bilirubin 0.7 0.1-1.0 MG/DL Aspartate Amino Transf (AST/SGOT) 15 5-34 U/L Alanine Aminotransferase (ALT/SGPT) 15 0-55 U/L Alkaline Phosphatase 46 40-136 U/L C-Reactive Protein High Sensitivity 1.09 H 0.00-0.50 MG/DL Total Protein 6.5 6.4-8.2 GM/DL Albumin 3.9 3.2-4.5 GM/DL Lactic Acid Level 1.45 0.50-2.00 MMOL/L Micro Results Microbiology 06/05/21 Urine Culture - Preliminary, Resulted Escherichia coli My Orders Orders - AFSANEH FLORES MD Fentanyl Inj (Sublimaze Injection) (06/05/21 03:38) Ed Iv/Invasive Line Start (06/05/21 03:38) Ns Iv 1000 Ml (Sodium Chloride 0.9%) (06/05/21 03:45) Cbc With Automated Diff (06/05/21 03:38) Comprehensive Metabolic Panel (06/05/21 03:38) Hs C Reactive Protein (06/05/21 03:38) Ua Culture If Indicated (06/05/21 03:38) Manual Differential (06/05/21 03:45) Urine Culture (06/05/21 03:20) Ct Abdomen/Pelvis W (06/05/21 04:18) Lactic Acid Analyzer (06/05/21 04:19) Blood Culture (06/05/21 04:19) Ceftriaxone (Rocephin) (06/05/21 04:19) Iohexol Injection (Omnipaque 350 Mg/Ml 1 (06/05/21 05:00) Received Contrast (Hold Metformin- Contr (06/05/21 05:00) Sodium Chloride Flush (Catheter Flush Sy (06/05/21 05:00) Ns (Ivpb) (Sodium Chloride 0.9% Ivpb Bag (06/05/21 05:00) Medications Given in ED Current Medications Medications Dose Ordered Sig/Hanane Route Start Time Stop Time Status Last Admin Dose Admin Iohexol 100 ml ONCE ONCE IV 06/05/21 05:00 06/05/21 05:01 DC 06/05/21 05:05 100 ML Sodium Chloride 10 ml NEEDED PRN IV 06/05/21 05:00 06/05/21 05:05 10 ML Sodium Chloride 100 ml ONCE ONCE IV 06/05/21 05:00 06/05/21 05:01 DC 06/05/21 05:05 80 ML Sodium Chloride 1,000 ml @ 0 mls/hr Q0M ONCE IV 06/05/21 03:45 06/05/21 03:46 DC 06/05/21 03:55 999 MLS/HR Vital Signs/I&O 06/05/21 03:19 Temp 37.3 Pulse 88 Resp 20 B/P (MAP) 122/88 (99) Pulse Ox 98 O2 Delivery Room Air Capillary Refill : Less Than 3 Seconds Blood Pressure Mean: 99 Progress Note : Progress Note Seen and evaluated. IV, labs, fentanyl 75 mcg IV and normal saline 1 L bolus ordered. Anticipate CT scan abdomen and pelvis due to new and increasing pain in the abdomen and history of cirrhosis. Monitor patient. 0420: Patient has rather significant urinary tract infection with elevated white count. He is failed outpatient therapy. He will require admission. We will go ahead and get blood cultures and lactic acid and initiate ceftriaxone IV. I will go ahead and get CT abdomen and pelvis given his pain. This was discussed with patient and family who agree. 0502: Case discussed with Dr Pena and she accepts patient for admission, inpatient status. CT abd/pelvis ordered with contrast and pending at time of admission. Ordered due to history of prostate abscess and prostatitis. Pain improved with current med regimen. Diagnostic Imaging Diagonstic Imaging: CT Plain Films/CT/US/NM/MRI: abdomen, pelvis Comments [facility]. [place], [place] NAME: NANI PERALTA [facility] REC#: [id number] PT STATUS: ADM IN : 1965 PHYSICIAN: AFSANEH FLORES MD ADMIT DATE: 06/05/21 Draft Date of Exam:06/05/21 CT ABDOMEN/PELVIS W PROCEDURE: CT abdomen and pelvis with contrast. TECHNIQUE: Multiple contiguous axial images were obtained through the abdomen and pelvis after administration of intravenous contrast. Auto Exposure Controls were utilized during the CT exam to meet ALARA standards for radiation dose reduction. All CT scans use one or more of the following dose optimizing techniques: automated exposure control, MA and/or KvP adjustment based on patient size and exam type or iterative reconstruction. INDICATION: Lower abdominal pain and scrotal pain. Comparison is made with prior CT from 03/07/2018. The lung bases are clear. No discrete liver mass is identified. The gallbladder is unremarkable. There is no biliary ductal dilatation. Pancreas and spleen are unremarkable. No adrenal mass is identified. Kidneys are unremarkable. Aorta is nonaneurysmal. Small and large bowel loops are normal in caliber. Appendix is visualized and unremarkable. There is no free fluid or fluid collection. Bladder is decompressed. Prostate is unremarkable. There is some vascularity surrounding the left testicle which may represent a varicocele. IMPRESSION: Essentially unremarkable CT of the abdomen and pelvis with contrast with exception of some increased vascularity surrounding the left testicle, perhaps varicocele. Scrotal ultrasound would be useful for further evaluation. The study is otherwise unremarkable. Dictated on workstation # [id number] Dict: 06/05/21 0815 Trans: 06/05/21 0842 [facility] [id number] Interpreted by: RUDDY MONSALVE MD Electronically signed by: Departure Communication (Admissions) Time/Spoke to Admitting Phy: 05:02 Impression Primary Impression: Urinary tract infection Qualified Codes: N30.01 - Acute cystitis with hematuria Disposition: ADMITTED INPATIENT Condition: Stable Admissions Decision to Admit Reason: Admit from ER (General) Decision to Admit/Date: Jun 05, 2021 Time/Decision to Admit Time: 05:02 Departure-Patient Inst. Referrals: MARIEL PATEL MD (PCP/Family) Primary Care Physician AFSANEH FLORES MD Jun 05, 2021 03:50
[2021-06-05 03:54] LABS: BASOPHILS % (AUTO) 0 % (0-10); EOSINOPHILS % (AUTO) 0 % (0-10); HEMATOCRIT 43 % (40-54); HEMOGLOBIN 14.2 g/dL (13.3-17.7); LYMPHOCYTES # (AUTO) 0.8 10^3/uL (1.0-4.0); LYMPHOCYTES % (AUTO) 6 % (12-44); MEAN CORPUSCULAR HEMOGLOBIN 31 pg (25-34); MEAN CORPUSCULAR HGB CONC 33 g/dL (32-36); MEAN CORPUSCULAR VOLUME 92 fL (80-99); MEAN PLATELET VOLUME 9.7 fL (9.0-12.2); MONOCYTES # (AUTO) 1.3 10^3/uL (0.0-1.0); MONOCYTES % (AUTO) 11 % (0-12); NEUTROPHILS # (AUTO) 10.1 10^3/uL (1.8-7.8); NEUTROPHILS % (AUTO) 82 % (42-75); PLATELET COUNT 140 10^3/uL (130-400); WHITE BLOOD COUNT 12.3 10^3/uL (4.3-11.0)
[2021-06-05 04:10] LABS: BACTERIA,URINE LARGE /HPF; SQUAMOUS EPITHELIAL CELL,UR 0-2 /HPF; WBC,URINE TNTC /HPF
[2021-06-05 04:11] LABS: ALBUMIN 3.9 GM/DL (3.2-4.5)
[2021-06-05 04:12] LABS: CHLORIDE 103 MMOL/L (98-107); POTASSIUM 4.1 MMOL/L (3.6-5.0); SODIUM 138 MMOL/L (135-145)
[2021-06-05 04:13] LABS: CALCIUM 8.4 MG/DL (8.5-10.1)
[2021-06-05 04:14] LABS: GLUCOSE 129 MG/DL (70-105); TOTAL PROTEIN 6.5 GM/DL (6.4-8.2)
[2021-06-05 04:15] LABS: CARBON DIOXIDE 26 MMOL/L (21-32)
[2021-06-05 04:16] LABS: BILIRUBIN,TOTAL 0.7 MG/DL (0.1-1.0)
[2021-06-05 04:17] LABS: ALKALINE PHOSPHATASE 46 U/L (40-136)
[2021-06-05 04:18] LABS: CREATININE SERUM 0.84 MG/DL (0.60-1.30); GFR ESTIMATED > 60
[2021-06-05 04:19] LABS: BUN/CREATININE RATIO 11
[2021-06-05] MEDS ORDERED: cefTRIAXone 1,000 MG in WATER (STERILE) FOR INJECTION 10 ML IV STA (04:19)
[2021-06-05 04:20] LABS: ALANINE AMINOTRANSFERASE 15 U/L (0-55)
[2021-06-05 04:23] LABS: BAND NEUTROPHILS 1 %; LYMPHOCYTES % (MANUAL) 8 %; MONOCYTES % (MANUAL) 3 %; NEUTROPHILS % (MANUAL) 88 %
[2021-06-05] MEDS ORDERED: NS 100 ML (IVPB) BAG IV ONE (05:00)
[2021-06-05] MEDS ORDERED: HOLD METFORMIN - RECEIVED CONTRAST 20 ML VIAL IV SCH (05:00)
[2021-06-05] MEDS ORDERED: CATHETER FLUSH 10 ML SYR IV PRN (05:00)
[2021-06-05] MEDS ORDERED: IOHEXOL 350 MG/ML 100 ML (OMNIPAQUE 350) VIAL IV ONE (05:00)
[2021-06-05 05:40] VITALS: BP 117/86
[2021-06-05] MEDS ORDERED: ONDANSETRON 4 MG/2 ML (SDV) Z0FRAN IVP PRN (06:00)
[2021-06-05] MEDS: NS IV 1000 ML 1,000 ML IV SCH ×3 (06:02→21:46)
[2021-06-05] MEDS: fentaNYL INJ 100 MCG/2 ML AMP IVP PRN ×6 (06:03→20:07)
[2021-06-05 07:55] VITALS: BP 122/80
--- NOTE | 2021-06-05 08:43 | Diagnostic Imaging Report ---
PROCEDURE: CT abdomen and pelvis with contrast. TECHNIQUE: Multiple contiguous axial images were obtained through the abdomen and pelvis after administration of intravenous contrast. Auto Exposure Controls were utilized during the CT exam to meet ALARA standards for radiation dose reduction. All CT scans use one or more of the following dose optimizing techniques: automated exposure control, MA and/or KvP adjustment based on patient size and exam type or iterative reconstruction. INDICATION: Lower abdominal pain and scrotal pain. Comparison is made with prior CT from 03/07/2018. The lung bases are clear. No discrete liver mass is identified. The gallbladder is unremarkable. There is no biliary ductal dilatation. Pancreas and spleen are unremarkable. No adrenal mass is identified. Kidneys are unremarkable. Aorta is nonaneurysmal. Small and large bowel loops are normal in caliber. Appendix is visualized and unremarkable. There is no free fluid or fluid collection. Bladder is decompressed. Prostate is unremarkable. There is some vascularity surrounding the left testicle which may represent a varicocele. IMPRESSION: Essentially unremarkable CT of the abdomen and pelvis with contrast with exception of some increased vascularity surrounding the left testicle, perhaps varicocele. Scrotal ultrasound would be useful for further evaluation. The study is otherwise unremarkable. Dictated by: Dictated on workstation # [id number]
[2021-06-05 11:50] VITALS: BP 137/89
[2021-06-05 13:50] VITALS: BP 129/82
[2021-06-05] MEDS ORDERED: TRAZ-227 PO (13:53)
[2021-06-05] MEDS ORDERED: FLUT12AE6 INH (13:53)
[2021-06-05] MEDS ORDERED: FOLI1TAB33 PO (13:53)
[2021-06-05] MEDS ORDERED: RT-ALBUINH IH (13:53)
[2021-06-05] MEDS ORDERED: METH2.5T PO (13:53)
[2021-06-05] MEDS ORDERED: QUET100T33 PO (13:53)
--- NOTE | 2021-06-05 15:17 | History & Physical ---
HPI History of Present Illness: 56 yo M that presents with increasing pain and discomfort in his left testicle. States that he has been dealing with this for over 3 months. Patient was seen by PCP and was diagnosed with epididmytis and has been on antibiotics. STD testing in december was negative and he is and has not had any new partners. S tates that he came in last night because of swelling and pain. He had US done about a week ago and no abscess was seen at that time. Prior to this initial diagnosis he has never had any problems similar to that in the past. Source: patient Exam Limitations: no limitations Time Seen by Provider: 11:00 Attending Physician Saray Pena MD PCP Sharif Nathan MD Consult Date of Admission Jun 05, 2021 at 05:04 Home Medications Home Medications Reviewed patient Home Medication Reconciliation performed by pharmacy medication reconciliations senior maintenance technician and/or nursing. Patients Allergies have been reviewed. Allergies Coded Allergies: Sulfa (Sulfonamide Antibiotics) (Unverified Allergy, Unknown, 06/09/08) IQN-Jmzblc-Odllsb Hx Patient Social History Living Status: Lives at home with Drug of Choice: THC, + IV METH Smoking Status: Current Everyday Smoker Recent Hopitalizations: No Alcohol Use?: No Substance type: Marijuana Tobacco type used: Cigarettes Have you traveled recently?: No Immunizations Up To Date Tetanus Booster (TDap): More than 5yrs Date of Pneumonia Vaccine: Sep 22, 2014 Date of Influenza Vaccine: Sep 30, 2015 Past Medical History Past medical history 1. Bipolar disorder-I 2. Alcoholism drinking daily 3. Burst fracture of the lumbar vertebra 4. Tobaccoism 5. History of Methampetamine use THC 6. Suicide Attempt 7. COPD- obtaining inhalers from Dr. Ca Past surgical history 1. Tonsillectomy 2. Surgery for urethral stricture Family Medical History Family History: Diabetes mellitus 19 MOTHER FH: COPD (chronic obstructive pulmonary disease) 19 MOTHER FH: emphysema 19 FATHER FH: lung cancer 19 FATHER Review of Systems ([facility]) Constitutional: No chills, No fever EENTM: no symptoms reported; No mouth pain, No nose congestion, No nose pain Respiratory: no symptoms reported; No cough, No dyspnea on exertion, No short of breath Cardiovascular: no symptoms reported; No chest pain, No edema, No palpitations Gastrointestinal: No abdominal pain, No constipation, No diarrhea; loss of appetite, nausea; No vomiting Genitourinary: decreased output, pain Musculoskeletal: no symptoms reported; No back pain, No joint pain, No muscle pain Skin: no symptoms reported; No lesions, No rash Psychiatric/Neurological: No Symptoms Reported; Denies Headache, Denies Numbness, Denies Paresthesia Reviewed Test Results Reviewed Test Results Lab Laboratory Tests Test 06/05/21 03:20 06/05/21 03:45 06/05/21 04:21 Range/Units Urine Color YELLOW Urine Clarity CLOUDY Urine pH 7.5 5-9 Urine Specific [place] 1.020 1.016-1.022 Urine Protein 1+ H NEGATIVE Urine Glucose (UA) NEGATIVE NEGATIVE Urine Ketones TRACE H NEGATIVE Urine Nitrite POSITIVE H NEGATIVE Urine Bilirubin NEGATIVE NEGATIVE Urine Urobilinogen 1.0 < = 1.0 MG/DL Urine Leukocyte Esterase 2+ H NEGATIVE Urine RBC (Auto) 2+ H NEGATIVE Urine RBC 10-25 H /HPF Urine WBC TNTC H /HPF Urine Squamous Epithelial Cells 0-2 /HPF Urine Crystals NONE /LPF Urine Bacteria LARGE H /HPF Urine Casts NONE /LPF Urine Mucus NEGATIVE /LPF Urine Culture Indicated YES White Blood Count 12.3 H 4.3-11.0 10^3/uL Red Blood Count 4.66 4.30-5.52 10^6/uL Hemoglobin 14.2 13.3-17.7 g/dL Hematocrit 43 40-54 % Mean Corpuscular Volume 92 80-99 fL Mean Corpuscular Hemoglobin 31 25-34 pg Mean Corpuscular Hemoglobin Concent 33 32-36 g/dL Red Cell Distribution Width 13.6 10.0-14.5 % Platelet Count 140 130-400 10^3/uL Mean Platelet Volume 9.7 9.0-12.2 fL Immature Granulocyte % (Auto) 0 % Neutrophils (%) (Auto) 82 H 42-75 % Lymphocytes (%) (Auto) 6 L 12-44 % Monocytes (%) (Auto) 11 0-12 % Eosinophils (%) (Auto) 0 0-10 % Basophils (%) (Auto) 0 0-10 % Neutrophils # (Auto) 10.1 H 1.8-7.8 10^3/uL Lymphocytes # (Auto) 0.8 L 1.0-4.0 10^3/uL Monocytes # (Auto) 1.3 H 0.0-1.0 10^3/uL Eosinophils # (Auto) 0.0 0.0-0.3 10^3/uL Basophils # (Auto) 0.0 0.0-0.1 10^3/uL Immature Granulocyte # (Auto) 0.0 0.0-0.1 10^3/uL Neutrophils % (Manual) 88 % Lymphocytes % (Manual) 8 % Monocytes % (Manual) 3 % Band Neutrophils 1 % Sodium Level 138 135-145 MMOL/L Potassium Level 4.1 3.6-5.0 MMOL/L Chloride Level 103 98-107 MMOL/L Carbon Dioxide Level 26 21-32 MMOL/L Anion Gap 9 5-14 MMOL/L Blood Urea Nitrogen 9 7-18 MG/DL Creatinine 0.84 0.60-1.30 MG/DL Estimat Glomerular Filtration Rate > 60 BUN/Creatinine Ratio 11 Glucose Level 129 H 70-105 MG/DL Calcium Level 8.4 L 8.5-10.1 MG/DL Corrected Calcium 8.5 8.5-10.1 MG/DL Total Bilirubin 0.7 0.1-1.0 MG/DL Aspartate Amino Transf (AST/SGOT) 15 5-34 U/L Alanine Aminotransferase (ALT/SGPT) 15 0-55 U/L Alkaline Phosphatase 46 40-136 U/L C-Reactive Protein High Sensitivity 1.09 H 0.00-0.50 MG/DL Total Protein 6.5 6.4-8.2 GM/DL Albumin 3.9 3.2-4.5 GM/DL Lactic Acid Level 1.45 0.50-2.00 MMOL/L Physical Exam-([facility]) Physical Exam Vital Signs VS - Last 72 Hours, by Label 06/05/21 06/05/21 06/05/21 06/05/21 03:19 05:19 05:40 05:40 Temp 37.3 36.9 Pulse 88 85 82 Resp 20 20 18 B/P (MAP) 122/88 (99) 125/77 117/86 (96) Pulse Ox 98 95 97 96 O2 Delivery Room Air Nasal Cannula Room Air Room Air O2 Flow Rate 2.00 06/05/21 06/05/21 06/05/21 07:55 08:24 11:50 Temp 36.3 37.1 Pulse 75 74 Resp 20 20 B/P (MAP) 122/80 (94) 137/89 (105) Pulse Ox 94 97 93 O2 Delivery Room Air Room Air Room Air Capillary Refill : Less Than 3 Seconds General Appearance: WD/WN, moderate distress (with any palpation to testicle) HEENT: PERRL/EOMI Neck: non-tender, full range of motion, supple Respiratory: chest non-tender, lungs clear, normal breath sounds, no respiratory distress, no accessory muscle use Cardiovascular: normal peripheral pulses, regular rate, rhythm, no edema, no murmur Gastrointestinal: normal bowel sounds, non tender, soft, no organomegaly Genital/Rectal: other (left testicular ttp and swelling, tenderness to posterior testicle near epididimysis) Back: no CVA tenderness, no vertebral tenderness Extremities: normal range of motion, non-tender, normal inspection, no pedal edema, no calf tenderness, normal capillary refill Neurologic/Psychiatric: coal washer II-XII nml as tested, no motor/sensory deficits, alert, normal mood/affect, oriented x 3 Skin: normal color, warm/dry Lymphatic: no adenopathy Assessment/Plan Assessment/Plan Admission Status: Inpatient Order (span 2 midnights) Reason for Inpatient Admission: Patient needing IV antibiotics and pain medication (1) Epididymitis, left Status: Acute Assessment & Plan: - IV Rocephin, Urine GC/Chyl pending, Urine culture pending, PO pain medications started (2) Urinary tract infection Status: Acute Assessment & Plan: - Continue antibiotics Qualifiers: Qualified Codes: N30.01 - Acute cystitis with hematuria (3) COPD (chronic obstructive pulmonary disease) Status: Chronic Qualifiers: Qualified Codes: J42 - Unspecified chronic bronchitis SARAY PENA MD Jun 05, 2021 15:17
[2021-06-05 15:50] VITALS: BP 129/82
[2021-06-05] MEDS: HYDROcodone/APAP 5 MG/325 MG (LORTAB) TAB PO PRN (15:57)
[2021-06-05] MEDS: IBUPROFEN 600 MG (MOTRIN) TAB PO SCH ×2 (18:02→23:42)
[2021-06-05] MEDS: RT--FLUTICASONE/SALMETEROL 232-14 (AIRDUO RespiCLICK) IH SCH (18:43)
[2021-06-05 19:30] VITALS: BP 100/67
[2021-06-05] MEDS: QUEtiapine 100 MG (SEROquel) TAB IMMEDIATE RELEASE PO SCH (20:07)
[2021-06-05] MEDS: SERTRALINE 100 MG (ZOLOFT) TAB PO SCH (20:07)
[2021-06-05] MEDS: DIVALPROEX 500 MG DELAYED RELEASE (DEPAKOTE) TAB PO SCH (20:07)
[2021-06-05] MEDS ORDERED: NON-FORMULARY MEDICATION 1 EA EA (Fluticasone/Salmeterol (Advair Hfa 230-21 Mcg Inhaler) 2 INH SCH (21:00)
[2021-06-06] VITALS: BP 94/62
[2021-06-06 03:58] VITALS: BP 94/60
[2021-06-06] MEDS: IBUPROFEN 600 MG (MOTRIN) TAB PO SCH ×3 (04:57→17:27)
[2021-06-06] MEDS: NS IV 1000 ML 1,000 ML IV SCH ×3 (04:58→22:30)
[2021-06-06] MEDS: cefTRIAXone 1,000 MG/SWFI 10 ML IV PUSH IV SCH ×2 (04:58)
[2021-06-06] MEDS: HYDROcodone/APAP 5 MG/325 MG (LORTAB) TAB PO PRN ×2 (05:02→11:29)
[2021-06-06 07:01] LABS: EOSINOPHILS # (AUTO) 0.1 10^3/uL (0.0-0.3); EOSINOPHILS % (AUTO) 1 % (0-10); MONOCYTES # (AUTO) 1.2 10^3/uL (0.0-1.0)
[2021-06-06 07:04] LABS: BASOPHILS # (AUTO) 0.1 10^3/uL (0.0-0.1); BASOPHILS % (AUTO) 0 % (0-10); HEMATOCRIT 37 % (40-54); HEMOGLOBIN 12.5 g/dL (13.3-17.7); LYMPHOCYTES # (AUTO) 1.7 10^3/uL (1.0-4.0); LYMPHOCYTES % (AUTO) 13 % (12-44); MEAN CORPUSCULAR HEMOGLOBIN 31 pg (25-34); MEAN CORPUSCULAR HGB CONC 33 g/dL (32-36); MEAN CORPUSCULAR VOLUME 92 fL (80-99); MEAN PLATELET VOLUME 10.2 fL (9.0-12.2); MONOCYTES % (AUTO) 9 % (0-12); NEUTROPHILS # (AUTO) 9.6 10^3/uL (1.8-7.8); NEUTROPHILS % (AUTO) 76 % (42-75); PLATELET COUNT 127 10^3/uL (130-400); WHITE BLOOD COUNT 12.6 10^3/uL (4.3-11.0)
[2021-06-06] MEDS: FOLIC ACID 1 MG TAB PO SCH (07:53)
[2021-06-06] MEDS: DIVALPROEX 500 MG DELAYED RELEASE (DEPAKOTE) TAB PO SCH ×2 (07:53→20:14)
[2021-06-06] MEDS: fentaNYL INJ 100 MCG/2 ML AMP IVP PRN (07:54)
[2021-06-06 08:00] VITALS: BP 95/61
[2021-06-06] MEDS: RT--FLUTICASONE/SALMETEROL 232-14 (AIRDUO RespiCLICK) IH SCH ×2 (08:35→18:30)
[2021-06-06 12:00] VITALS: BP 138/84
[2021-06-06 16:00] VITALS: BP 129/85
[2021-06-06] MEDS: oxyCODONE/APAP 5/325MG (PERCOCET 5) TABLET PO PRN (17:24)
[2021-06-06 20:00] VITALS: BP 126/83
[2021-06-06] MEDS: SERTRALINE 100 MG (ZOLOFT) TAB PO SCH (20:14)
[2021-06-06] MEDS: QUEtiapine 100 MG (SEROquel) TAB IMMEDIATE RELEASE PO SCH (20:14)
--- NOTE | 2021-06-06 21:04 | Progress Note ---
Subjective Subjective/Events-last exam Patient still having uncontrolled pain. He is still able to urinate clear urine. Tolerating PO diet. Review of Systems General: No Chills, No Fatigue Pulmonary: No Dyspnea, No Cough Cardiovascular: No: Chest Pain, Palpitations, Edema Gastrointestinal: No: Nausea, Vomiting, Abdominal Pain, Diarrhea, Constipation Genitourinary: Dysuria; No Incontinence, No Hematuria Neurological: No: Weakness, Incoordination Focused Exam Lactate Level 06/05/21 04:21: Lactic Acid Level 1.45 Objective Exam Last Set of Vital Signs Vital Signs Date Time Temp Pulse Resp B/P (MAP) Pulse Ox O2 Delivery O2 Flow Rate FiO2 06/06/21 20:00 35.6 72 18 126/83 (97) 95 Room Air 06/05/21 05:19 2.00 Capillary Refill : Less Than 3 Seconds I&O Intake and Output 06/06/21 00:00 Intake Total 1000 ml Output Total 1400 ml Balance -400 ml Intake Oral 1000 ml Output Urine Total 1400 ml Daily Weight Change No General: Alert, Oriented X3, Mild Distress Lungs: Clear to Auscultation, Normal Air Movement Heart: Regular Rate, No Murmurs Abdomen: Normal Bowel Sounds, Soft, No Tenderness, No Masses Extremities: No Edema, No Tenderness/Swelling Skin: No Rashes, No Breakdown Neuro: Normal Speech, Strength at 5/5 X4 Ext, Sensation Intact, Cranial Nerves 3-12 NL Psych/Mental Status: Mental Status NL, Mood NL Results/Procedures Lab Laboratory Tests 06/06/21 06:51: White Blood Count 12.6H, Red Blood Count 4.07L, Hemoglobin 12.5L, Hematocrit 37L , Mean Corpuscular Volume 92, Mean Corpuscular Hemoglobin 31, Mean Corpuscular Hemoglobin Concent 33, Red Cell Distribution Width 13.7, Platelet Count 127L, Mean Platelet Volume 10.2, Immature Granulocyte % (Auto) 0, Neutrophils (%) (Auto) 76H, Lymphocytes (%) (Auto) 13, Monocytes (%) (Auto) 9, Eosinophils (%) (Auto) 1, Basophils (%) (Auto) 0, Neutrophils # (Auto) 9.6H, Lymphocytes # (Auto) 1.7, Monocytes # (Auto) 1.2H, Eosinophils # (Auto) 0.1, Basophils # (Auto) 0.1, Immature Granulocyte # (Auto) 0.1, Percent Immature Platelet Fraction 2.6 Microbiology 06/05/21 Blood Culture - Preliminary, Resulted No growth 06/05/21 Urine Culture - Final, Complete Escherichia coli Assessment/Plan Assessment/Plan (1) Epididymitis, left Status: Acute Assessment & Plan: - IV Rocephin, Urine GC/Chyl pending, Urine culture pending, PO pain medications started 06/06: Continue Rocephin for Ecoli, Started Percocet today for better pain control (2) Urinary tract infection Status: Acute Assessment & Plan: - Continue antibiotics Qualifiers: Qualified Codes: N30.01 - Acute cystitis with hematuria (3) COPD (chronic obstructive pulmonary disease) Status: Chronic Qualifiers: Qualified Codes: J42 - Unspecified chronic bronchitis PARKER JENKINS MD Jun 06, 2021 21:04
[2021-06-07] VITALS: BP 126/83
[2021-06-07] MEDS: oxyCODONE/APAP 5/325MG (PERCOCET 5) TABLET PO PRN ×2 (00:23→09:03)
[2021-06-07] MEDS: IBUPROFEN 600 MG (MOTRIN) TAB PO SCH ×3 (00:23→12:07)
[2021-06-07 05:00] VITALS: BP 125/72
[2021-06-07] MEDS: cefTRIAXone 1,000 MG/SWFI 10 ML IV PUSH IV SCH ×2 (05:31)
[2021-06-07] MEDS: NS IV 1000 ML 1,000 ML IV SCH (05:31)
[2021-06-07 05:46] LABS: BASOPHILS % (AUTO) 0 % (0-10); HEMOGLOBIN 11.7 g/dL (13.3-17.7); MEAN CORPUSCULAR HEMOGLOBIN 31 pg (25-34)
[2021-06-07 05:48] LABS: EOSINOPHILS # (AUTO) 0.1 10^3/uL (0.0-0.3); EOSINOPHILS % (AUTO) 1 % (0-10); HEMATOCRIT 35 % (40-54); LYMPHOCYTES # (AUTO) 1.4 10^3/uL (1.0-4.0); LYMPHOCYTES % (AUTO) 18 % (12-44); MEAN CORPUSCULAR HGB CONC 33 g/dL (32-36); MEAN CORPUSCULAR VOLUME 92 fL (80-99); MONOCYTES # (AUTO) 0.7 10^3/uL (0.0-1.0); MONOCYTES % (AUTO) 9 % (0-12); NEUTROPHILS # (AUTO) 5.7 10^3/uL (1.8-7.8); NEUTROPHILS % (AUTO) 71 % (42-75); PLATELET COUNT 120 10^3/uL (130-400)
[2021-06-07 05:56] LABS: CHLORIDE 109 MMOL/L (98-107); POTASSIUM 3.8 MMOL/L (3.6-5.0); SODIUM 142 MMOL/L (135-145)
[2021-06-07 05:57] LABS: CALCIUM 7.5 MG/DL (8.5-10.1)
[2021-06-07 05:58] LABS: GLUCOSE 95 MG/DL (70-105)
[2021-06-07 05:59] LABS: CARBON DIOXIDE 25 MMOL/L (21-32)
[2021-06-07 06:02] LABS: CREATININE SERUM 0.67 MG/DL (0.60-1.30); GFR ESTIMATED > 60
[2021-06-07 06:03] LABS: BUN/CREATININE RATIO 10
[2021-06-07] MEDS: RT--FLUTICASONE/SALMETEROL 232-14 (AIRDUO RespiCLICK) IH SCH (07:20)
[2021-06-07 08:45] VITALS: BP 111/62
[2021-06-07] MEDS: DIVALPROEX 500 MG DELAYED RELEASE (DEPAKOTE) TAB PO SCH (09:01)
[2021-06-07] MEDS: FOLIC ACID 1 MG TAB PO SCH (09:01)
--- NOTE | 2021-06-07 09:59 | Discharge Summary ---
Diagnosis/Chief Complaint Date of Admission Jun 05, 2021 at 05:04 Date of Discharge Discharge Diagnosis Problems/Diagnosis: (1) Epididymitis, left Assessment & Plan: - IV Rocephin, Urine GC/Chyl pending, Urine culture pending, PO pain medications started 06/06: Continue Rocephin for Ecoli, Started Percocet today for better pain control Status: Acute (2) Urinary tract infection Assessment & Plan: - Continue antibiotics Qualifiers: Qualified Codes: N30.01 - Acute cystitis with hematuria Status: Acute (3) COPD (chronic obstructive pulmonary disease) Qualifiers: Qualified Codes: J42 - Unspecified chronic bronchitis Status: Chronic Chief Complaint/HPI Chief Complaint/HPI 56 yo M that presents with increasing pain and discomfort in his left testicle. States that he has been dealing with this for over 3 months. Patient was seen by PCP and was diagnosed with epididmytis and has been on antibiotics. STD testing in december was negative and he is and has not had any new partners. States that he came in last night because of swelling and pain. He had US done about a week ago and no abscess was seen at that time. Prior to this initial diagnosis he has never had any problems similar to that in the past. Discharge Summary-Simple/Stand Consultations Discharge Physical Examination Allergies: Coded Allergies: latex (Verified Allergy, Mild, Rash, 06/05/21) Sulfa (Sulfonamide Antibiotics) (Unverified Allergy, Unknown, 06/09/08) Vitals & I&Os Vital Sign - Last 12Hours Date Time Temp Pulse Resp B/P (MAP) Pulse Ox O2 Delivery O2 Flow Rate FiO2 06/07/21 08:45 36.8 80 16 111/62 (78) 96 Room Air 06/05/21 05:19 2.00 Intake and Output 06/07/21 00:00 Intake Total 2390 ml Output Total 3250 ml Balance -860 ml Hospital Course See final discharge diagnosis. Discharge Instructions to patient/family Please see electronic discharge instructions given to patient. Discharge Medications Reviewed and agree with Discharge Medication list on patient's Discharge Instruction sheet PARKER JENKINS MD Jun 07, 2021 09:59
[2021-06-07] MEDS ORDERED: OXYC1TAB87 PO (10:02)
[2021-06-07] MEDS ORDERED: CEFD300C3 PO (10:02)
[2021-06-07] MEDS ORDERED: IBUP-844 PO (10:02)
--- NOTE | 2021-06-07 10:04 | Discharge Summary ---
Discharge [facility] Reconcile Patient Problems Problems Reviewed?: Yes Discharge Medications New, Converted or Re-Newed RX: Transmitted to Pharmacy New Medications: Cefdinir (Cefdinir) 300 Mg Capsule 300 MG PO BID for 12 Days, #24 CAP Ibuprofen (Ibu) 600 Mg Tablet 600 MG PO Q6HR, #30 TAB Oxycodone HCl/Acetaminophen (Percocet 5-325 mg Tablet) 1 Each Tablet 1 TAB PO Q6HR PRN for PAIN-MODERATE (5-7), #30 TAB Continued Medications: Albuterol Sulfate (Proair Hfa) 1 Puff Puff 2 PUFF IH Q4H PRN for SHORTNESS OF BREATH, PUFF Divalproex Sodium (Divalproex Sodium) 500 Mg Tablet.dr 500 MG PO BID, TAB Fluticasone/Salmeterol (Advair Hfa 230-21 Mcg Inhaler) 12 Gm Hfa.aer.ad 2 PUFF INH BID, INH Folic Acid (Folic Acid) 1 Mg Tablet 1 MG PO DAILY, TAB Methotrexate Sodium (Methotrexate) 2.5 Mg Tablet 20 MG PO THURSDAY, TAB TAKES 8 (2.5MG) TABLETS Quetiapine Fumarate (Quetiapine Fumarate) 100 Mg Tablet 100 MG PO HS, TAB Sertraline HCl (Zoloft) 100 Mg Tablet 100 MG PO HS, TAB Trazodone HCl (Trazodone HCl) 100 Mg Tablet 100 MG PO HS, TAB Patient Instructions Goal/Follow Up Appt: F/u with PCP next week Patient Instructions: - Make sure you complete all your antibiotics - If not improving would recommend referral to Urology Activity & Diet Discharge Diet: Cardiac Diet Activity as Tolerated: Yes PARKER JENKINS MD Jun 07, 2021 10:04
[2021-06-07 12:38] VITALS: BP 111/62
== END 2021-06-07 12:20 | disposition home or self-care (01) | DRG 728 ==
LOC: EDUNIT# 03:08 → ER 03:11 → 4TH 05:04
PROVIDERS: ADMIT Family Medicine; ATTEND Family Medicine
DX: N45.1 Epididymitis (principal); N39.0 Urinary tract infection, site not specified; F17.210 Nicotine dependence, cigarettes, uncomplicated; F31.9 Bipolar disorder, unspecified; B96.20 Unspecified Escherichia coli [E. coli] as the cause of diseases classified elsewhere; J43.9 Emphysema, unspecified; G89.29 Other chronic pain; M54.9 Dorsalgia, unspecified; F41.9 Anxiety disorder, unspecified; G47.00 Insomnia, unspecified; Z88.2 Allergy status to sulfonamides; Z91.040 Latex allergy status
CPT/HCPCS: 36415; 74177; 80048; 80053; 81000; 83605; 85007; 85025; 85027; 86141; 87040; 87077; 87088; 87186; 87491; 87591; 94640; 94760